=== PATIENT | male | born 1955 | race Caucasian/White ===

== ENCOUNTER 2021-01-16 14:40 | Emergency (ER) | payer OTHER, SELFPAY ==
[2021-01-16 14:46] VITALS: BP 143/76; PULSE 89; RESP 18; TEMP 36.2; O2SAT 97
--- NOTE | 2021-01-16 14:49 | DI.RAD.S_ITS ---
PROCEDURE: XR CHEST 2V INDICATIONS: cough TECHNIQUE: 2 views of the chest were acquired. COMPARISON: None. FINDINGS: Surgical changes and devices: None. Lungs and pleura: Lungs are clear. No pleural effusions or pneumothorax. Mediastinum: The cardiac contours are within normal limits. The aorta demonstrates calcification and tortuosity. Bones and chest wall: No suspicious bony abnormalities. Accentuated thoracic kyphosis is seen. Mild dextroconvex scoliotic curvature is seen. Soft tissues appear unremarkable. IMPRESSION: No acute abnormality is seen. No focal infiltrates Dictated by: Andi Suarez M.D. on 01/16/2021 at 14:09 Approved by: Andi Suarez M.D. on 01/16/2021 at 14:09
[2021-01-16 17:40] LABS: COVID19 -Nasal RAPID Negative (Negative)
[2021-01-16] MEDS: ALBUTEROL 2.5 MG/3 ML NEB (ADULT) INH (17:45)
[2021-01-16 18:06] VITALS: PULSE 72; RESP 18; O2SAT 96
[2021-01-16 18:15] VITALS: BP 145/75; PULSE 72; RESP 16; O2SAT 99
--- NOTE | 2021-01-16 18:54 | ED_ITS ---
HPI - URI/Sore Throat <TANO Núñez - Last Filed: 01/16/21 19:02> General Chief Complaint: Upper Respiratory Symptoms Stated Complaint: chest cough with sleep x14 days Time Seen by Provider: 01/16/21 16:01 Source: patient Mode of arrival: Ambulatory History of Present Illness HPI Narrative: The patient is a 65-year-old male current smoker with history of nebulizer use who presents with a chief complaint of a cough at night. He presents stating that his says he coughs during his sleep for 2 weeks. Patient denies any symptoms during waking hours, denies any cough while awake, denies any fever, denies any sore throat or ear pain. He does not have a primary care provider. He is asking for cigarettes. The patient initially left prior to my evaluation, then was redirected back to the emergency department by his . She states that he coughs throughout the day. Related Data Previous Rx's Medication Instructions Recorded albuterol sulfate 90 mcg/actuation 2 puff INHALATION Q4-6H PRN #8.5 g 01/16/21 aerosol inhaler Allergies Allergy/AdvReac Type Severity Reaction Status Date / Time Penicillins Allergy Verified 01/16/21 17:45 Review of Systems <TANO Núñez - Last Filed: 01/16/21 19:02> Review of Systems Narrative: GENERAL: Denies chills, fatigue, malaise, fever, sweats. HEENT: Denies sinus pain, ear pain, sore throat, difficulty swallowing, dizzi ness. RESPIRATORY: See HPI CARDIOVASCULAR: Denies chest pain, palpitations, orthopnea, edema, GASTROINTESTINAL: Denies nausea, vomiting, abdominal pain, diarrhea, constipation, melena. : Denies dysuria, frequency, incontinence, hematuria, urinary retention. MUSCULOSKELETAL: denies weakness, joint pain, or bony pain SKIN: Denies rash, skin lesions, or other NEUROLOGIC: Denies weakness, headache, numbness, change in speech, confusion, seizures, incoordination. PSYCHIATRIC: No concerning psychosocial issues. 12 point review of systems is negative except for those stated above Patient History <TANO Núñez - Last Filed: 01/16/21 19:02> Social History Smoking Status: Current every day smoker Smoking Status: Current every day smoker alcohol intake frequency: 0-2 drinks per day Exam <TANO Núñez - Last Filed: 01/16/21 19:02> Narrative Exam Narrative: GENERAL: This is a well-nourished, well-developed patient, in no acute distress HEAD: Atraumatic. Normocephalic. No temporal or scalp tenderness. EYES: Pupils equal round and reactive. Extraocular motions intact. No scleral icterus. No injection or drainage. ENT: Nose without bleeding, purulent drainage or septal hematoma. Throat without erythema, tonsillar hypertrophy or exudate. Uvula midline. Airway patent. Bilateral TMs pearly montes. NECK: Trachea midline. No JVD or lymphadenopathy. Supple, nontender, no meningeal signs. CARDIOVASCULAR: Regular rate and rhythm RESPIRATORY: Clear to auscultation. Breath sounds equal bilaterally. Coarse bilateral breath sounds, Occasional cough during exam GASTROINTESTINAL: Abdomen soft, non-tender, nondistended. No hepato- splenomegaly, or palpable masses. No guarding. EXTREMITIES: No clubbing, cyanosis, or edema. No joint tenderness, effusion, or edema noted. BACK: Nontender without deformity or crepitance. No flank tenderness. NEURO: AOx3. SKIN: No rash or erythema on visible skin Initial Vital Signs Initial Vital Signs: Vital Signs Temperature 97.2 F L 01/16/21 14:46 Pulse Rate 89 01/16/21 14:46 Respiratory Rate 18 01/16/21 14:46 Blood Pressure 143/76 H 01/16/21 14:46 Pulse Oximetry 97 01/16/21 14:46 <Kael Leblanc DO - Last Filed: 01/22/21 07:07> Initial Vital Signs Initial Vital Signs: Vital Signs Temperature 97.2 F L 01/16/21 14:46 Pulse Rate 89 01/16/21 14:46 Respiratory Rate 18 01/16/21 14:46 Blood Pressure 143/76 H 01/16/21 14:46 Pulse Oximetry 97 01/16/21 14:46 Course <TANO Núñez - Last Filed: 01/16/21 19:02> Orders Ordered: Discontinued Medications Albuterol (Albuterol 2.5 Mg/3 Ml Neb (Adult)) 2.5 mg INH NOW ONE Stop: 01/16/21 16:31 Last Admin: 01/16/21 17:45 Dose: 2.5 mg Documented by: IWONA Vital Signs Vital signs: Vital Signs - 8 hr 01/16/21 14:46 01/16/21 18:06 01/16/21 18:15 Temperature 97.2 F L Pulse Rate 89 72 72 Respiratory Rate 18 18 16 Blood Pressure 143/76 H 145/75 H Pulse Oximetry 97 96 99 <Kael Leblanc DO - Last Filed: 01/22/21 07:07> Orders Ordered: Discontinued Medications Albuterol (Albuterol 2.5 Mg/3 Ml Neb (Adult)) 2.5 mg INH NOW ONE Stop: 01/16/21 16:31 Last Admin: 01/16/21 17:45 Dose: 2.5 mg Documented by: IWONA Vital Signs Vital signs: Vital Signs - 8 hr 01/16/21 14:46 01/16/21 18:06 01/16/21 18:15 Temperature 97.2 F L Pulse Rate 89 72 72 Respiratory Rate 18 18 16 Blood Pressure 143/76 H 145/75 H Pulse Oximetry 97 96 99 MDM - URI/Sore Throat <TANO Núñez - Last Filed: 01/16/21 19:02> Lab Data Attestation: I reviewed the patient's lab results. Labs: Lab Results 01/16/21 Range/Units 16:20 SARS-CoV-2 (PCR) Negative (Negative) Imaging Data Chest x-ray: Radiologist's Impression: [address] [place] [id number] XRay Report Signed Patient: Ashley Shafer MR#: [id number] : 1955 Acct:[id number] Age/Sex: 65 / M Date of Service: 01/16/21 Loc: ED Accession Number: [id number] ?? Procedure: XR chest 2V Ordering Provider: Kael Leblanc D.O. PROCEDURE:? XR CHEST 2V ? INDICATIONS:? cough ? TECHNIQUE:? 2 views of the chest were acquired.? ? COMPARISON:? None. ? FINDINGS:? ? Surgical changes and devices:? None.? ? Lungs and pleura:? Lungs are clear.? No pleural effusions or pneumothorax.? ? Mediastinum:? The cardiac contours are within normal limits. The aorta demonstrates calcification and tortuosity. ? Bones and chest wall:? No suspicious bony abnormalities.? Accentuated thoracic kyphosis is seen.? Mild dextroconvex scoliotic curvature is seen. ? Soft tissues appear unremarkable.? IMPRESSION:? No acute abnormality is seen.? No focal infiltrates ? ? Dictated by: Andi Suarez M.D. on 01/16/2021 at 14:09 ? ? Approved by: Andi Suarez M.D. on 01/16/2021 at 14:09?? MDM Narrative Medical decision making narrative: The patient is a 65-year-old male current smoker presents with a chief complaint of a cough at night only for about 2 weeks. He denies any daytime symptoms. Given his profuse cough, he is vaccinated for COVID, but we did do a COVID swab to make sure he has negative. Chest x-ray is no acute findings. He does note that he has been without his albuterol nebulizer so he is given a treatment in the emergency department. I discussed at length other causes of coughing at night, such as sleep apnea etcetera, however patient states he does not have that.? I did give him a prescription of albuterol, discussed at length return precautions, the patient is noted to attempt to leave multiple times during his emergency department stay and asks multiple staff members for cigarettes. Encouraged to follow up with primary care provider in the next few days. Patient has no questions or concerns upon discharge states understanding of return precautions as well as fo llow-up care. <Kael Leblanc DO - Last Filed: 01/22/21 07:07> Lab Data Labs: Lab Results 01/16/21 Range/Units 16:20 SARS-CoV-2 (PCR) Negative (Negative) Discharge Plan Departure Patient Disposition: Home Clinical Impression: Cough Instructions: DI for Cough -- Adult, Albuterol Activity Restrictions/Additional Instructions: Thank you for trusting us with your care today. As discussed, your chest x-ray is no signs of pneumonia, your COVID test is negative. I sent a prescription of albuterol to [facility]. Please follow-up with primary care provider in the next few days. I have given you contact information the [facility] health resource room special education teacher, can help you find a primary care provider to follow-up with. Please come back to the emergency department for any acute concerns. Prescriptions: New albuterol sulfate 90 mcg/actuation HFA aerosol inhaler 2 puff inhalation Q4-6H PRN (Reason: shortness of breath or wheezing) Qty: 8.5 RF: 0 Referrals: [facility] [Outside] <Kael Leblacn, DO - Last Filed: 01/22/21 07:07> Cosign ED Attending Cosignature Attestation: Dr Leblanc Co-Sign Statement: I was available for consultation during this patient's emergency department visit. This chart is signed by myself for administrative purposes only. I did not have direct contact with this patient during this visit. They were seen independently by the APC.
== END 2021-01-16 18:15 | disposition home or self-care (01) ==
PROVIDERS: Emergency Provider Nurse Practitioner Family
DX: R05.9 Cough, unspecified (principal); Z20.822 Contact with and (suspected) exposure to COVID-19
CPT/HCPCS: 71046; 87635; 94640; 99283; C9803; A9270; J7613

== ENCOUNTER 2022-10-16 16:28 | Observation (INO) | payer OTHER, SELFPAY ==
[2022-10-16] VITALS (10 sets, daily range): BP systolic 125–164; BP diastolic 59–75; PULSE 67–83; RESP 16–26; TEMP 37; O2SAT 96–99; BMI 30.7
--- NOTE | 2022-10-16 17:05 | DI.RAD.S_ITS ---
PROCEDURE: XR CHEST 1V INDICATIONS: chest pain TECHNIQUE: One view of the chest was acquired. COMPARISON: [facility], CR, XR CHEST 2V, 01/16/2021, 14:51. FINDINGS: Surgical changes and devices: None. Lungs and pleura: Lungs are clear. No pleural effusions or pneumothorax. Mediastinum: Mediastinal contours appear normal. Heart size is normal. Bones and chest wall: No suspicious bony lesions. Overlying soft tissues appear unremarkable. IMPRESSION: No acute cardiopulmonary disease Dictated by: Portia Reno M.D. on 10/16/2022 at 17:33 Approved by: Portia Reno M.D. on 10/16/2022 at 17:34
[2022-10-16 17:36] LABS: Add Manual Diff / Slide Review NO; Basophils Absolute Auto 100 /uL (0-100); Basophils Percent Auto 0.8 % (0-2); Eosinophils Absolute Auto 200 /uL (0-450); Eosinophils Percent Auto 2.4 % (2-4); Hematocrit 45.6 % (41-53); Hemoglobin 15.5 g/dL (13.5-17.5); Lymphocytes Absolute Auto 1400 /uL (1100-4500); Lymphocytes Percent Auto 14.6 % (25-40); Mean Corpuscular Hemoglobin 31.9 PG (26-34); Monocytes Absolute Auto 800 /uL (0-900); Monocytes Percent Auto 8.3 % (3-14); Neutrophils Absolute Auto 7200 /uL (1500-7000); Neutrophils Percent Auto 73.9 % (50-75); Platelet Count 261 X10^3/uL (150-400); Red Blood Cell Count 4.85 X10^6/uL (4.5-5.9); Red Cell Distribution Width 15.5 % (11.6-14.8); White Blood Cell Count 9.7 X10^3/uL (4.5-11.0)
[2022-10-16 17:38] LABS: INR 1.1 (0.9-1.3); Prothrombin Time 12.2 SECONDS (10.1-12.7)
[2022-10-16 17:39] LABS: D Dimer 1531 ng/ml (<500)
[2022-10-16 17:40] LABS: PTT Partial Thromboplastin Tim 28 SECONDS (26-36)
[2022-10-16 17:41] LABS: Alanine Aminotransferase 18 IU/L (<50); Albumin Globulin Ratio 1.2 (1.0-2.8); Alkaline Phosphatase 131 U/L (38-126); Aspartate Aminotransferase 22 IU/L (17-59); Bilirubin Total 1.2 mg/dL (0.2-1.3); Blood Urea Nitrogen 17 mg/dL (9-20); Calcium 8.9 mg/dL (8.4-10.2); Carbon Dioxide 31 mmol/L (22-32); Chloride 101 mmol/L (98-107); Creatine Kinase 47 U/L (55-170); Estimated Glomerular Filt Rate > 60 mL/min (>60); Globulin 3.4 g/dL (1.7-4.1); Glucose 109 mg/dL (80-110); HEMOLYSIS < 15 (0-50); Lipase 43 U/L (23-300); Magnesium 2.2 mg/dL (1.6-2.3); Potassium 3.9 mmol/L (3.4-5.1); Sodium 137 mmol/L (137-145); Total Protein 7.4 g/dL (6.3-8.2)
[2022-10-16 17:53] LABS: NT-proBNP (BNP-Adult 18+) 45 pg/mL (<125); Troponin I < 0.012 ng/mL (0.01-0.034)
--- NOTE | 2022-10-16 20:08 | DI.US.S_ITS ---
PROCEDURE: US PERIPH VENOUS LOW EXTREM BI INDICATIONS: SWELLING AND POSITIVE D-DIMER TECHNIQUE: Real-time imaging, as well as color and pulse Doppler interrogation, were performed of the deep veins of both legs from the inguinal ligament to the popliteal fossa. COMPARISON: None. FINDINGS: Right: The common femoral, femoral and popliteal veins are normally compressible, and free of intraluminal thrombus. Color and pulse Doppler demonstrate normal phasic intravascular flow. There is normal augmentation response to distal compression maneuver. Left: The common femoral vein is patent. Nonocclusive thrombus is noted within the midportion of the left superficial femoral vein. The distal left superficial vein appears compressible and patent. IMPRESSION: 1. Nonocclusive thrombus within the midportion of the left superficial vein. Dictated by: Mel Diana M.D. on 10/16/2022 at 21:52 Approved by: Mel Diana M.D. on 10/16/2022 at 21:54
--- NOTE | 2022-10-16 21:23 | DI.CT.S_ITS ---
PROCEDURE: CT ANGIO CHEST PE PROTOCOL INDICATIONS: soa TECHNIQUE: After the administration of intravenous contrast, 2 mm thick sections acquired from the pulmonary apices to the posterior costophrenic angles. 3-dimensional maximum intensity projection (MIP) coronal and sagittal reformats were then acquired through the thorax. For radiation dose reduction, the following was used: automated exposure control, adjustment of mA and/or kV according to patient size. COMPARISON: None. FINDINGS: Image quality: Excellent. Pulmonary arteries: There is a nonocclusive subsegmental embolus within a branch of the left upper lobe (series 4/image 53). No other pulmonary embolus. Lungs and pleura: There is a spiculated nodule within the right upper lobe which measures a mm in diameter (series 5/image 54). The lungs are otherwise clear. No pleural effusion or pneumothorax. Mediastinum: Heart size is normal, without pericardial effusion. No mediastinal or hilar adenopathy. Thoracic aorta is normal in caliber and enhancement. Esophagus is normal in caliber, without hiatal hernia. Bones and chest wall: No suspicious bony lesions. Ribs and thoracic spine appear intact throughout. Thyroid gland is unremarkable. No axillary or supraclavicular adenopathy. Abdomen: Visualized upper abdominal solid organs appear normal in the early arterial phase of enhancement. IMPRESSION: 1. Nonocclusive thrombus within a subsegmental branch of the left upper lobe. This finding was discussed with Dr. Cramer at 10:23 p.m. On October 16, 2022 2. Right upper lobe 8 mm pulmonary nodule with spiculated margins. 3 month follow-up CT recommended. Please see follow-up guidelines below. Fleischner Society criteria for SOLID lung nodule followup. Nodule size (mm)Low-risk patientHigh-risk patient<6 (single or multiple)No routine followup.Optional CT at 12 months. 6-8 (single or multiple)CT at 6-12 months, then optional CT at 18-24 mo.CT at 6-12 months, then CT at 18-24 months. >8 (single)CT at 3 months, PET-CT, or biopsy. Same as for low-risk pts. >8 (multiple)CT at 3-6 months, then optional CT at 18-24 mo.CT at 3-6 months, then CT at 18-24 months. Fleischner Society criteria for SUB-SOLID lung nodule followup. Solitary pure ground-glass nodules<6 mm (ground glass or part solid)No followup needed. 6 mm or larger (ground glass)CT at 6-12 months to confirm persistence, then CT every 2 years until 5 years.6 mm or larger (part solid)CT at 3-6 months to confirm persistence, then annual CT until 5 years if unchanged and solid component remains <6 mm. Multiple sub-solid nodules<6 mmCT at 3-6 months, then CT consider at 2 & 4 years for high risk patients. [address] at 3-6 months. Subsequent management based on most suspicious lesions. Recommendations do not apply to lung cancer screening, patients with immunosuppression, or patients with known primary cancer. Dictated by: Mel Diana M.D. on 10/16/2022 at 22:18 Approved by: Mel Diana M.D. on 10/16/2022 at 22:25
--- NOTE | 2022-10-16 21:42 | ED_ITS ---
HPI - Extremity Problem General Chief complaint: Extremity Problem,Nontraumatic Stated complaint: bilateral foot and ankle swelling Time Seen by Provider: 10/16/22 21:10 Source: patient Mode of arrival: Ambulatory History of Present Illness HPI Narrative: Patient brought here by for complaints of bilateral leg swelling. No chest pain or shortness of breath. 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 He does have mobility issues with joint and orthopedic pain, he has been sleeping in the truck in a seated position with feet down. There is extensive leg and feet swelling in the past few days. They state he has normal looking feet prior to their departure October 06. Patient has had edema of the legs before and was given diuretics according to . No history of blood clots in legs or lungs. Related Data Previous Rx's Medication Instructions Recorded albuterol sulfate 90 mcg/actuation 2 puff inhalation Q4-6H PRN 01/16/21 aerosol inhaler shortness of breath or wheezing #8.5 grams Allergies Allergy/AdvReac Type Severity Reaction Status Date / Time Penicillins Allergy Verified 10/16/22 17:01 Review of Systems Review of Systems Narrative: GENERAL: negative chills, fatigue, malaise, fever, sweats. HEENT: negative sinus pain, ear pain, sore throat RESPIRATORY: negative dyspnea, cough CARDIOVASCULAR: negative chest pain, palpitations, positive peripheral edema GASTROINTESTINAL: negative nausea, vomiting, abdominal pain : negative dysuria, frequency, hematuria MUSCULOSKELETAL: negative muscle or bony pain SKIN: negative rash, skin lesions NEUROLOGIC: negative weakness, numbness ROS Unobtainable: All systems reviewed & are unremarkable except as noted in HPI and below Patient History Social History household members: spouse Smoking Status: Current every day smoker Smoking Status: Current every day smoker alcohol intake frequency: 3 or more drinks per day Alcohol type: beer Substance Use Type: marijuana Exam Narrative Exam Narrative: GENERAL: in no distress, not toxic not dyspneic HEAD: Normocephalic. EYES: Pupils equal round ENT: Mucous membranes moist. NECK: Trachea midline. CARDIOVASCULAR: Regular rate and rhythm without murmurs RESPIRATORY: Clear to auscultation. Breath sounds equal bilaterally. No wheezes, rales, or rhonchi. GASTROINTESTINAL: Abdomen soft, non-tender EXTREMITIES: No gross deformities. There is extensive severe edema symmetrically of lower legs ankle and feet. However feet are warm soft and pink. Brisk cap refills. Light touch intact to foot and toes. Nontender calves otherwise. No palpable cords. NEURO: AOx4. SKIN: Warm and dry PSYCH: Not anxious, is cooperative Initial Vital Signs Initial Vital Signs: Vital Signs Temperature 98.6 F 10/16/22 16:58 Pulse Rate 74 10/16/22 16:58 Respiratory Rate 16 10/16/22 16:58 Blood Pressure 164/75 H 10/16/22 16:58 Pulse Oximetry 98 10/16/22 16:58 Oxygen Delivery Method Room Air 10/16/22 16:58 Course Orders Ordered: ED Orders 10/16/22 20:08 periph venous low extrem bi Stat 10/16/22 21:23 CT angio chest PE protocol Stat Acetaminophen (Acetaminophen 325 Mg Tablet) 650 mg PO Q6H PRN PRN Reason: Fever/Mild Pain (1-3) Hydrocodone Bitart/Acetaminophen (Hydrocodone/Acet 5/325 Tablet) 1 tab PO Q4H PRN PRN Reason: Pain, Moderate (4-10 Al Hydrox/Mg Hydrox/Simethicone (Mag Hydrox/Alum/Simeth 30 Ml Udc) 30 ml PO Q6HR PRN PRN Reason: Dyspepsia Albuterol/Ipratropium (Albuterol/Ipratropium 3 Ml Ampul) 3 ml INH Q4HR PRN PRN Reason: Shortness Of Breath Or Wheezing Calcium Carbonate (Calcium Carbonate 500 Mg Tab) 1,000 mg PO Q4HR PRN PRN Reason: Dyspepsia Enoxaparin Sodium (Enoxaparin 100 Mg/Ml Syringe) 100 mg SUBCUT Q12H HASEEB Last Admin: 10/17/22 00:00 Dose: 100 mg Documented By: Naloxone HCl (Naloxone 0.4 Mg/Ml Vial) 0.2 mg IV Q2MIN PRN PRN Reason: Opiate Reversal Ondansetron HCl (Ondansetron 4 Mg/2 Ml Inj) 4 mg IV Q8HR PRN PRN Reason: Nausea And Vomiting Sennosides (Sennosides 8.6 Mg Tablet) 17.2 mg PO BEDTIME HASEEB Discontinued Medications Enoxaparin Sodium (Enoxaparin 40 Mg/0.4 Ml Syringe) 97 mg SUBCUT BID HASEEB Furosemide 60 mg/ Sodium (Chloride) 56 mls @ 112 mls/hr IV NOW ONE Stop: 10/16/22 21:17 Last Infusion: 10/16/22 22:23 Dose: 0 mls/hr Documented By: Admin: 10/16/22 21:48 Dose: 112 mls/hr Documented By: NAHUM Vital Signs Vital signs: Vital Signs - 8 hr 10/16/22 20:36 10/16/22 20:38 10/16/22 20:38 Pulse Rate 83 71 Respiratory Rate Blood Pressure 154/71 H Pulse Oximetry 99 99 Oxygen Delivery Method Room Air 10/16/22 21:00 10/16/22 21:30 10/16/22 21:54 Pulse Rate 70 68 73 Respiratory Rate 26 H 24 Blood Pressure Pulse Oximetry 99 98 98 Oxygen Delivery Method Room Air 10/16/22 21:54 10/16/22 22:00 10/16/22 22:00 Pulse Rate 67 Respiratory Rate 20 Blood Pressure 139/63 125/59 L Pulse Oximetry 98 Oxygen Delivery Method 10/16/22 22:30 10/16/22 22:30 10/16/22 23:00 Pulse Rate 74 Respiratory Rate 24 Blood Pressure 143/67 H 136/65 Pulse Oximetry 98 Oxygen Delivery Method Room Air 10/16/22 23:00 10/16/22 23:30 10/16/22 23:30 Pulse Rate 68 68 Respiratory Rate 22 21 Blood Pressure 136/67 Pulse Oximetry 96 96 Oxygen Delivery Method Room Air MDM - Extremity (Nontraumatic) Lab Data 10/16/22 17:15 10/16/22 17:15 Labs: Lab Results 10/16/22 10/16/22 10/16/22 Range/Units 17:15 17:15 17:15 WBC 9.7 (4.5-11.0) X10^3/uL RBC 4.85 (4.5-5.9) X10^6/uL Hgb 15.5 (13.5-17.5) g/dL Hct 45.6 (41-53) % MCV 94.0 (80-100) fL MCH 31.9 (26-34) PG MCHC 34.0 (30-36) % RDW 15.5 H (11.6-14.8) % Plt Count 261 (150-400) X10^3/uL Neut % (Auto) 73.9 (50-75) % Lymph % (Auto) 14.6 L (25-40) % Stanton % (Auto) 8.3 (3-14) % Eos % (Auto) 2.4 (2-4) % Baso % (Auto) 0.8 (0-2) % Neut # (Auto) 7200 H (5748-1512) /uL Lymph # (Auto) 1400 (4166-1922) /uL Stanton # (Auto) 800 (0-900) /uL Eos # (Auto) 200 (0-450) /uL Baso # (Auto) 100 (0-100) /uL PT 12.2 (10.1-12.7) SECONDS INR 1.1 (0.9-1.3) APTT 28 (26-36) SECONDS D-Dimer 1531 H (<500) ng/ml Sodium 137 (137-145) mmol/L Potassium 3.9 (3.4-5.1) mmol/L Chloride 101 (98-107) mmol/L Carbon Dioxide 31 (22-32) mmol/L BUN 17 (9-20) mg/dL Creatinine 1.00 (0.66-1.25) mg/dL Estimated GFR > 60 (>60) mL/min BUN/Creatinine Ratio 17.0 (6-22) Glucose 109 (80-110) mg/dL Calcium 8.9 (8.4-10.2) mg/dL Magnesium 2.2 (1.6-2.3) mg/dL Total Bilirubin 1.2 (0.2-1.3) mg/dL AST 22 (17-59) IU/L ALT 18 (<50) IU/L Alkaline Phosphatase 131 H (38-126) U/L Total Creatine Kinase 47 L (55-170) U/L Troponin I < 0.012 (0.01-0.034) ng/mL NT-Pro-B Natriuret Pep 45 (<125) pg/mL Total Protein 7.4 (6.3-8.2) g/dL Albumin 4.0 (3.5-5.0) g/dL Globulin 3.4 (1.7-4.1) g/dL Albumin/Globulin Ratio 1.2 (1.0-2.8) Lipase 43 (23-300) U/L Imaging Data Chest x-ray: Radiologist's Impression: [address] [address] XRay Report Signed Patient: Ashley Shafer MR#: [id number] : 1955 Acct:[id number] Age/Sex: 67 / M Date of Service: 10/16/22 Loc: ED Accession Number: [id number] ?? Procedure: XR chest 1V Ordering Provider: Garett Gamboa MD PROCEDURE:? XR CHEST 1V ? INDICATIONS:? chest pain ? TECHNIQUE:? One view of the chest was acquired.? ? COMPARISON:? [facility], , XR CHEST 2V, 01/16/2021, 14:51. ? FINDINGS:? ? Surgical changes and devices:? None.? ? Lungs and pleura:? Lungs are clear.? No pleural effusions or pneumothorax.? ? Mediastinum:? Mediastinal contours appear normal.? Heart size is normal.? ? Bones and chest wall:? No suspicious bony lesions.? Overlying soft tissues appear unremarkable.? ? IMPRESSION:? No acute cardiopulmonary disease ? ? Dictated by: Portia Reno M.D. on 10/16/2022 at 17:33 ? ? Approved by: Portia Reno M.D. on 10/16/2022 at 17:34 ? CT scan - chest: Radiologist's Impression: [address] [address] [address] Scan Report Signed Patient: Ashley Shafer MR#: [id number] : 1955 Acct:[id number] Age/Sex: 67 / M Date of Service: 10/16/22 Loc: ED Accession Number: [id number] ?? Procedure: CT angio chest PE protocol Ordering Provider: Roman Cramer MD PROCEDURE:? CT ANGIO CHEST PE PROTOCOL ? INDICATIONS:? soa ? TECHNIQUE:? After the administration of intravenous contrast, 2 mm thick sections acquired from the pulmonary apices to the posterior costophrenic angles.? 3-dimensional maximum intensity projection (MIP) coronal and sagittal reformats were then acquired through the thorax.? For radiation dose reduction, the following was used:? automated exposure control, adjustment of mA and/or kV according to patient size.? ? COMPARISON:? None. ? FINDINGS:? Image quality:? Excellent.? ? Pulmonary arteries:? There is a nonocclusive subsegmental embolus within a branch of the left upper lobe (series 4/image 53).? No other pulmonary embolus. ? Lungs and pleura:? There is a spiculated nodule within the right upper lobe which measures a mm in diameter (series 5/image 54).? The lungs are otherwise clear.? No pleural effusion or pneumothorax. ? Mediastinum:? Heart size is normal, without pericardial effusion.? No mediastinal or hilar adenopathy.? Thoracic aorta is normal in caliber and enhancement.? Esophagus is normal in caliber, without hiatal hernia.? ? Bones and chest wall:? No suspicious bony lesions.? Ribs and thoracic spine appear intact throughout.? Thyroid gland is unremarkable.? No axillary or supraclavicular adenopathy.? ? Abdomen:? Visualized upper abdominal solid organs appear normal in the early arterial phase of enhancement.? ? IMPRESSION:? 1.? Nonocclusive thrombus within a subsegmental branch of the left upper lobe. ? This finding was discussed with Dr. Cramer at 10:23 p.m. On October 16, 2022 ? 2. Right upper lobe 8 mm pulmonary nodule with spiculated margins.? 3 month follow-up CT recommended.? Please see follow-up guidelines below. ? Fleischner Society criteria for SOLID lung nodule followup.? Nodule size (mm)Low-risk patientHigh-risk patient<6 (single or multiple)No routine followup.Optional CT at 12 months. 6-8 (single or multiple)CT at 6-12 months, then optional CT at 18-24 mo.CT at 6-12 months, then CT at 18-24 months.? >8 (sin gle)CT at 3 months, PET-CT, or biopsy. Same as for low-risk pts.? >8 (multiple)CT at 3-6 months, then optional CT at 18-24 mo.CT at 3-6 months, then CT at 18-24 months.? Fleischner Society criteria for SUB-SOLID lung nodule followup.? Solitary pure ground-glass nodules<6 mm (ground glass or part solid)No followup needed.? 6 mm or larger (ground glass)CT at 6-12 months to confirm persistence, then CT every 2 years until 5 years.6 mm or larger (part solid)CT at 3-6 months to confirm persistence, then annual CT until 5 years if unchanged and solid component remains <6 mm.? Multiple sub-solid nodules<6 mmCT at 3-6 months, then CT consider at 2 & 4 years for high risk patients. 6 [address] or larger.? CT at 3-6 months. Subsequent management based on most suspicious lesions. Recommendations do not apply to lung cancer screening, patients with immunosuppression, or patients with known primary cancer. ? Dictated by: Mel Diana M.D. on 10/16/2022 at 22:18 ? ? Approved by: Mel Diana M.D. on 10/16/2022 at 22:25 ? US - DVT: Radiologist's Impression: [address] [address] Ultrasound Report Signed Patient: Ashley Shafer MR#: [id number] : 1955 Acct:[id number] Age/Sex: 67 / M Date of Service: 10/16/22 Loc: ED Accession Number: [id number] ?? Procedure: US periph venous low extrem bi Ordering Provider: Roman Cramer MD PROCEDURE:? US PERIPH VENOUS LOW EXTREM BI ? INDICATIONS:? SWELLING AND POSITIVE D-DIMER ? TECHNIQUE:? Real-time imaging, as well as color and pulse Doppler interrogation, were performed of the deep veins of both legs from the inguinal ligament to the popliteal fossa.? ? COMPARISON:? None. ? FINDINGS:? ? Right: The common femoral, femoral and popliteal veins are normally compressible, and free of intraluminal thrombus.? Color and pulse Doppler demonstrate normal phasic intravascular flow.? There is normal augmentation response to distal compression maneuver.? ? Left:? The common femoral vein is patent.? Nonocclusive thrombus is noted within the midportion of the left superficial femoral vein.? The distal left superficial vein appears compressible and patent. ? ? IMPRESSION:? ? 1. Nonocclusive thrombus within the midportion of the left superficial vein. ? ? Dictated by: Mel Diana M.D. on 10/16/2022 at 21:52 ? ? Approved by: Mel Diana M.D. on 10/16/2022 at 21:54 ? [facility] Narrative Medical decision making narrative: Patient brought here by for complaints of bilateral leg swelling. No chest pain or shortness of breath. 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 He does have mobility issues with joint and orthopedic pain, he has been sleeping in the truck in a seated position with feet down. There is extensive leg and feet swelling in the past few days. They state he has normal looking feet prior to their departure October 06. Patient has had edema of the legs before and was given diuretics according to . No history of blood clots in legs or lungs After history and exam CBC CMP BNP ultrasound of the legs CT chest Lasix anticoagulation MDM CC: Leg swelling Complicating co-morbidities: Recent long travel Data collected from: Patient Medical records reviewed: No recent visit for this complaint Differential considered: Includes but not limited to dependent edema SVT DVT PE cellulitis Exam documented above, pertinent findings include: Extensive bilateral leg and feet edema Lab Test results independently reviewed as above. Pertinent findings: WBC 9.7 hemoglobin 15.5 INR 1.1 D-dimer 1531 BUN 17 creatinine 1.0 Independently reviewed EKG normal sinus rhythm normal EKG rate 68 Imaging studies independently reviewed: Chest x-ray no acute finding Ultrasound venous Doppler positive DVT left leg CT chest positive subsegmental PE left upper lobe Consultations: 11:49 p.m.. Spoke with hospitalist nurse practitioner, Rose, recommends Lovenox 1 milligram/kilogram twice a day. She will see patient for admission. Treatments: Lasix Lovenox Re-evaluations: 10:35 p.m.. Updated patient and . Findings are consistent with DVT and PE. Will need admission and diuresis and anticoagulation. They agree with treatment plan. Discussion: Appropriate for admission for anticoagulation and diuresis. Diagnosis: DVT PE Discharge Plan Departure Patient Disposition: Admitted as Observation Clinical Impression: Deep vein thrombosis of lower extremity, Lower extremity edema, Pulmonary embolism Admit Date/Time: 10/16/22 23:52 Admit Provider: Rose Romero
[2022-10-16] MEDS: FUROSEMIDE 60 MG in SODIUM CHLORIDE 0.9% 50 ML 112 MG IV (21:48)
--- NOTE | 2022-10-17 00:04 | DI.ECHO.S_ITS ---
[facility] +---------+ : : [address] [place] : : : : [id number] : : : : Phone: [phone]+ Echocardiogram Report + + :Name: MAJO SAWYER Study Date: 10/17/2022 Height: 58 in : :[facility] ReadingLocation: Weight: 214 lb : : Gender: Male BSA: 1.9 m2 : :: 1955 Age: 67 yrs BP: 141/67 mmHg: :Reason For Study: PE/DVT : :Ordering Physician: ANUPAMA, : :HALINA Performed By: Petrona Tran : :Referring: HALINA ALTMAN : + + Interpretation Summary 1) Mildly increased left ventricular thickness (concentric) with normal size, normal wall motion, and normal systolic function (EF 60-65%). 2) Normal right ventricular size and function. 3) No significant valvular abnormalities. 4) Pulmonary artery pressures cannot be estimated because of the lack of a measurable TR jet velocity. 5) No prior Echo available for comparison. Procedure: A two-dimensional transthoracic echocardiogram with color flow and Doppler was performed. The study quality was technically difficult. There is no prior echocardiogram noted for this patient. A contrast injection of Definity was performed to improve assessment of LV function. The patient was in normal sinus rhythm during the exam. Left Ventricle: The left ventricle is normal in size. There is mild concentric left ventricular hypertrophy. The ejection fraction is estimated to be 60-65%. Left ventricular systolic function is normal. Diastolic parameters suggest a relaxation abnormality of the left ventricle, consistent with probable normal filling pressures. Right Ventricle: The right ventricle is normal size. The right ventricular systolic function is normal. Atria: The left atrial size is normal. Right atrial size is normal. There is no Doppler evidence for an interatrial shunt. Mitral Valve: The mitral valve is not well visualized. There is no mitral valve stenosis. There is no mitral regurgitation noted. Aortic Valve: The aortic valve is not well visualized. There is no aortic valve stenosis. No aortic regurgitation is present. Tricuspid Valve: The tricuspid valve is not well visualized. There is no tricuspid stenosis. No tricuspid regurgitation. Pulmonary artery pressures cannot be estimated because of the lack of a measurable TR jet velocity. Pulmonic Valve: The pulmonic valve is not well visualized. There is no pulmonic valvular stenosis. There is no pulmonic valvular regurgitation. Great Vessels: The aortic root is normal size. The ascending aorta is normal in size. The pulmonary is not well visualized. The IVC is of normal diameter and collapses greater than 50% with a sniff. This suggests a low right atrial pressure of 3 mm Hg. Pericardium/ Pleura There is a trivial to small pericardial effusion noted. MMode/2D Measurements & Calculations LVIDd: 4.5 cm LVOT diam: 1.9 cm LVIDs: 3.7 cm Ao root diam: 2.9 cm FS: 17.8 % asc Aorta Diam: 3.3 cm IVSd: 1.4 cm LVPWd: 1.2 cm LV cheung. diameter/BSA (cm/m^2): 2.4 LV sys. diameter/BSA (cm/m^2): 2.0 LA A2 area: 15.8 cm2 RA long axis: 4.5 cm LA A4 area: 14.6 cm2 RA area: 12.7 cm2 LA length (vol): 5.4 cm RA vol: 30.3 ml LA vol: 36.1 ml RA : 16.2 ml/m2 LA vol index: 19.3 ml/m2 RVD1 (basal): 4.1 cm TAPSE_phl: 2.1 cm Doppler Measurements & Calculations Ao V2 max: 141.0 cm/sec LVOT Max Vern: 99.9 cm/sec Ao V2 mean: 86.1 cm/sec LV V1 max P.0 mmHg Ao max P.0 mmHg LV V1 VTI: 20.5 cm Ao mean P.0 mmHg KATERINA(I,D): 2.0 cm2 Ao V2 VTI: 28.9 cm KATERINA(V,D): 2.0 cm2 sev ratio: 0.71 KATERINA indexed to BSA (cm^2/m^2): 1.1 MV E max vern: 91.7 cm/sec PA V2 max: 85.1 cm/sec MV A max vern: 89.1 cm/sec PA V2 mean: 59.2 cm/sec MV E/A: 1.0 PA mean P.0 mmHg Med Peak E' Vern: 6.2 cm/sec PA pr(Accel): 34.9 mmHg E/E' med: 14.8 Lat Peak E' Vern: 8.0 cm/sec E/E' lat: 11.4 E/e' average: 13.1 MV dec time: 0.29 sec SV(LVOT): 58.1 ml AV VR_phl: 0.71 KATERINA(VTI)/BSA_phl: 1.1 MV P1/2t-pr_phl: 84.0 msec Reading Physician:05:11 PM
--- NOTE | 2022-10-17 00:11 | PM.HP.1 ---
History of Present Illness History of Present Illness Date Patient Seen: 10/17/22 Time Patient Seen: 00:11 Chief complaint: bilateral foot and ankle swelling Narrative: Ashley Shafer is a 67 yr old male with a medical history for only chronic tobacco abuse who presented to the ED with severe bilateral lower extremity swelling after driving from [place] to [place] and sleeping (sleeping in the truck in a seated position with feet down) in their [employer] over the past 10 days. He notes that his lower extremities have been weeping increased redness. Has had bilateral edema in the past on 1 occasion was treated with diuretics. Patient denies any prior cardiac, pulmonary, blood clots history. Denies chest pain or shortness of breath.? He does have mobility issues with joint and orthopedic pain. They state he has normal looking feet prior to their departure October 06. On admit patient denies chest pain, shortness in breath, headache, changes in vision, difficulty swallowing, speech impairment, weakness, numbness, tingling, recent falls, head injury, LOC, fever, body aches, chills, cough, recent exposure to illness, abdominal pain, nausea, vomiting, urinary incontinence/retention, dysuria, frequency, urgency, hematuria, bowel changes, constipation, incontinence, melena, rashes, recent changes to medication, illness, injury, or trauma. On admit vitals are stable 141/67, 83, 18, 97% on room air. Patient does smoke daily, alcohol use, THC. No WBC, positive neutrophils 7200. Troponin negative, BNP negative, chest x-ray negative, D-dimer 1531, CTA showed nonocclusive thrombus within a segmental branch of the left upper lobe, and right lobe 8 mm pulmonary nodule with spiculated margins. Bilateral lower extremity ultrasound showed nonocclusive thrombus within the middle portion of the left superficial vein. Patient admitted with left upper lobe pulmonary embolus, left lower extremity DVT. [facility] Medical History Tobacco abuse Surgical History History of bilateral hip replacements Family History Mother Cancer Father Heart attack Social History (Updated 10/17/22 @ 05:10 [facility] household members: spouse Smoking Status: Current every day smoker alcohol intake: current substance use type: marijuana Meds Home Medications and Allergies Home Medications Medication Instructions Recorded Confirmed Type albuterol sulfate 90 mcg/actuation 2 puff inhalation Q4-6H PRN 01/16/21 10/17/22 Rx aerosol inhaler shortness of breath or wheezing #8.5 grams Allergies Allergy/AdvReac Type Severity Reaction Status Date / Time Penicillins Allergy Verified 10/16/22 17:01 Review of Systems Review of Systems Narrative: All 12 point systems reviewed with the patient and are negative except otherwise documented. Exam Vital Signs (past 8 hours): - 10/16/22 16:58 10/16/22 20:36 10/16/22 20:38 Temperature 98.6 F Pulse Rate 74 83 71 Respiratory Rate 16 Blood Pressure 164/75 H Pulse Oximetry 98 99 99 Oxygen Delivery Method Room Air Room Air 10/16/22 20:38 10/16/22 21:00 10/16/22 21:30 Temperature Pulse Rate 70 68 Respiratory Rate 26 H Blood Pressure 154/71 H Pulse Oximetry 99 98 Oxygen Delivery Method 10/16/22 21:54 10/16/22 21:54 10/16/22 22:00 Temperature Pulse Rate 73 Respiratory Rate 24 Blood Pressure 139/63 125/59 L Pulse Oximetry 98 Oxygen Delivery Method Room Air 10/16/22 22:00 10/16/22 22:30 10/16/22 22:30 Temperature Pulse Rate 67 74 Respiratory Rate 20 24 Blood Pressure 143/67 H Pulse Oximetry 98 98 Oxygen Delivery Method Room Air 10/16/22 23:00 10/16/22 23:00 10/16/22 23:30 Temperature Pulse Rate 68 Respiratory Rate 22 Blood Pressure 136/65 136/67 Pulse Oximetry 96 Oxygen Delivery Method Room Air 10/16/22 23:30 Temperature Pulse Rate 68 Respiratory Rate 21 Blood Pressure Pulse Oximetry 96 Oxygen Delivery Method Oxygen Delivery Method Room Air Narrative Exam Narrative: General: Patient is a male in no distress at this time. HEENT: Normocephalic, atraumatic, extraocular muscles intact, oral pharynx is clear and mucous membranes are moist. Neck is supple and symmetric, trachea is midline, no adenopathy, no thyroid enlargement, nontender, no masses palpated. Negative for JVD Chest: Normal AP diameter and contour without kyphoscoliosis, Equal chest rise without nasal flaring, retractions, tachypneic or labored breathing. Lungs: Auscultation of all lung dsouza significantly coarse, decreased, profuse wheezing throughout Cardio: regular rate and rhythm without murmur, rubs, or gallops, no carotid bruit, no cardiac pulsations present. Abdomen: Soft nontender, negative for organomegaly, or masses. Bowel sounds are present in all 4 quadrants without guarding or rebound, no CVA tenderness. Musculoskeletal: Muscle strength and tone are equal, no deformity, crepitus, effusions, cyanosis, clubbing present. Full range of motion intact radial and pedal pulses are normal. Bilateral lower extremities: Significant bilateral nonpitting edema left calf larger than right noted mild weeping, erythema, skin breakdown noted to posterior left calf, bilateral fungal infections and breakdown between toes. Skin: Warm dry and intact without rashes, ulcerations or petechiae. Neuro: Alert and orientated x3, moves all extremities, sensation to touch intact, no gross deficits noted of cranial nerves. Psych: Patient has a poorly kept appearance, appears chronically ill, appropriate affect, mental status attitude thought context and judgment are appropriate for age. Objective Labs 10/16/22 17:15 10/16/22 17:15 Labs: Laboratory Results - last 24 hr 10/16/22 10/16/22 10/16/22 17:15 17:15 17:15 WBC 9.7 RBC 4.85 Hgb 15.5 Hct 45.6 MCV 94.0 MCH 31.9 MCHC 34.0 RDW 15.5 H Plt Count 261 Neut % (Auto) 73.9 Lymph % (Auto) 14.6 L Schleicher % (Auto) 8.3 Eos % (Auto) 2.4 Baso % (Auto) 0.8 Neut # (Auto) 7200 H Lymph # (Auto) 1400 Schleicher # (Auto) 800 Eos # (Auto) 200 Baso # (Auto) 100 PT 12.2 INR 1.1 APTT 28 D-Dimer 1531 H Sodium 137 Potassium 3.9 Chloride 101 Carbon Dioxide 31 BUN 17 Creatinine 1.00 Estimated GFR > 60 BUN/Creatinine Ratio 17.0 Glucose 109 Calcium 8.9 Magnesium 2.2 Total Bilirubin 1.2 AST 22 ALT 18 Alkaline Phosphatase 131 H Total Creatine Kinase 47 L Troponin I < 0.012 NT-Pro-B Natriuret Pep 45 Total Protein 7.4 Albumin 4.0 Globulin 3.4 Albumin/Globulin Ratio 1.2 Lipase 43 Assessment & Plan Assessment & Plan narrative: Ashley Shafer is a 67 yr old male with a medical history for only chronic tobacco abuse who presented to the ED with severe bilateral lower extremity swelling after driving from [place] to [place] and sleeping (sleeping in the truck in a seated position with feet down) in their [employer] over the past 10 days. Patient admitted with left upper lobe pulmonary embolus, left lower extremity DVT. 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 Lovenox as above Elevation Bilateral lower extremity peripheral edema, severe, acute, present on admission Left greater than right 60 mg Lasix given in ED Continue 20 mg Lasix IV b.i.d. Pulmonary nodule, acute, present on admission CTA showed nonocclusive thrombus within a segmental branch of the left upper lobe, and right lobe 8 mm pulmonary nodule with spiculated margins Recommend follow-up and monitoring with PCP Tobacco abuse, chronic, present on admission Discussed tobacco cessation as it is a causative factor in PE and DVT. Obesity, mild, acute on chronic, present on admission As evidence by BMI 30.7 dietary consult ordered regarding nutritional education and information for dietary, lifestyle, exercise, and weight changes. the patient is at much higher risk for medical and surgical complications due to obesity as it relates to chronic illnesses:, and acute illness. The patient's obesity increases the difficulty and complexity of medical and/or surgical interventions, management and increases the chances of poor outcome such as morbidity and mortality as well as impaired wound healing. Code status: Full Surrogate decision maker: Spouse DVT/VTE prophylaxis: Lovenox Disposition: Patient admitted under observation, expected length of stay not to exceed 2 midnights. I have utilized all available immediate resources to obtain, update, or review the patient's current medications. I confirmed that the patient's advanced care plan is present, Code status is documented and/or surrogate decision maker is listed in the patient's medical record. I have personally reviewed patient's chart notes from PCP, specialists, diagnostic imaging, and laboratory results.
[2022-10-17 00:30] VITALS: BP 141/67; PULSE 83; RESP 18; TEMP 36.4; O2SAT 97
[2022-10-17 01:08] VITALS: BMI 30.7
--- NOTE | 2022-10-17 06:03 | PC.ADMIT ---
[address] Admission Note: The patient,Ashley Shafer,67 y/o, was given written information regarding hospital policies, unit procedures and contact persons. Patient's smoking status: Current every day smoker. Vital Signs - 8 hr 10/16/22 22:30 10/16/22 22:30 10/16/22 23:00 Temperature Pulse Rate 74 Respiratory Rate 24 Blood Pressure 143/67 H 136/65 Pulse Oximetry 98 Oxygen Delivery Method Room Air Oxygen Flow Rate 10/16/22 23:00 10/16/22 23:30 10/16/22 23:30 Temperature Pulse Rate 68 68 Respiratory Rate 22 21 Blood Pressure 136/67 Pulse Oximetry 96 96 Oxygen Delivery Method Room Air Oxygen Flow Rate 10/17/22 00:30 Temperature 97.6 F Pulse Rate 83 Respiratory Rate 18 Blood Pressure 141/67 H Pulse Oximetry 97 Oxygen Delivery Method Oxygen Flow Rate 0
[2022-10-17 06:08] LABS: Add Manual Diff / Slide Review NO; Basophils Absolute Auto 100 /uL (0-100); Basophils Percent Auto 1.1 % (0-2); Eosinophils Absolute Auto 200 /uL (0-450); Eosinophils Percent Auto 2.5 % (2-4); Hematocrit 42.1 % (41-53); Hemoglobin 14.6 g/dL (13.5-17.5); Lymphocytes Absolute Auto 1400 /uL (1100-4500); Lymphocytes Percent Auto 18.3 % (25-40); Mean Corpuscular HGB Conc 34.8 % (30-36); Mean Corpuscular Hemoglobin 32.2 PG (26-34); Mean Corpuscular Volume 92.5 fL (80-100); Monocytes Absolute Auto 700 /uL (0-900); Monocytes Percent Auto 9.2 % (3-14); Neutrophils Absolute Auto 5400 /uL (1500-7000); Neutrophils Percent Auto 68.9 % (50-75); Platelet Count 230 X10^3/uL (150-400); Red Blood Cell Count 4.55 X10^6/uL (4.5-5.9); Red Cell Distribution Width 15.3 % (11.6-14.8); White Blood Cell Count 7.9 X10^3/uL (4.5-11.0)
[2022-10-17 06:11] LABS: INR 1.2 (0.9-1.3); Prothrombin Time 13.8 SECONDS (10.1-12.7)
[2022-10-17 06:16] LABS: Cholesterol 114 mg/dL (140-199); HDL Cholesterol 31 mg/dL (40-60); LDL Cholesterol Calculated 64 mg/dL (<100); Triglycerides 95 mg/dL (35-150)
[2022-10-17 06:28] LABS: Troponin I < 0.012 ng/mL (0.01-0.034)
--- NOTE | 2022-10-17 08:31 | CM.DANOTE ---
Addendum entered by Suzanne Rincon R.N. 10/17/22 15:39: CM returned to room to discuss DCP for today. Patient remains awaiting TTE. not at bedside, patient sleeping. Bedside RN Roseann aware of DCP to local [facility] with support of [facility] for voucher if/when contacts them. Addendum entered by Suzanne Rincon R.N. 10/17/22 13:49: Met with patient and his at bedside again at 1238 and offered phone number for [facility]. Call to Sandra Garza at [facility] as a heads up that they would likely show up today after hospital discharge. CM team recieved message that patient/ would like additional resources as they have no muñoz, no where to live and their hotel room at the [facility] has been rented. Original Note: Chart reviewed. Met with patient to introduce case management team and initiate assessment. Patient agrees to assessment. Patient is a 67 year old who confirms that he just drove across the from [place] to [place] with with plan of moving to [place]. Citlaly at bedside and will often speak for patient. He confirms that he drives, is retired, and does not know if he has a PCP in [place]. States plan is to stay in a motel or with Bevely?s daughter until they find a place to live. She states she lived here years ago and is familiar with town. Both are encouraged to find a PCP as soon as possible due to long booking times. PCP: None Payer: [employer] ELL[employer] DME: OWN 4WW at bedside, prior hip, L femur fracture Plan: Echo, lovekrysten DCP: Local mot with . Discharge Planning/Care Management CM Discharge Assessment Start: 10/17/22 08:25 Freq: Status: Active Protocol: Document 10/17/22 08:26 BQ (Rec: 10/17/22 08:28 BQ [id number]) Discharge Planning Assessment Assigned Environmental Construction Engineer Suzanne Rincon RN, CM DPOA/Assigned Designee Name Saira at bedside Advance Directives? No History Provided By Patient,Family Member Has Patient been admitted in last 30 No days? Prior Living Arrangements Homeless Comment States just moved here, drove from [place] Household Members spouse Type of transporation used prior to Drives own vehicle admit Independent with ADL's Yes: Slow to respond, slow to awaken Is patient alert and oriented? Yes Caregiver for Another No DME Already Rented / Owned FWW / Walker Barriers to Discharge No Comment Active smoker Discharge Plan Home Referrals Initiated None needed Whiteboard Updated in Patient Room with Yes name and ext. # of Environmental Construction Engineer Review Status In Process Next Review Type Continued Stay Review
[2022-10-17 09:03] VITALS: BP 122/61; PULSE 72; RESP 16; TEMP 36.4; O2SAT 96
[2022-10-17] MEDS: FUROSEMIDE 20 MG/2 ML VIAL IV (09:46)
[2022-10-17] MEDS: ALBUTEROL/IPRATROPIUM 3 ML AMPUL INH (09:48)
[2022-10-17 09:50] VITALS: PULSE 69; RESP 16; O2SAT 95
[2022-10-17 11:45] LABS: Troponin I < 0.012 ng/mL (0.01-0.034)
[2022-10-17] MEDS: ENOXAPARIN 100 MG/ML SYRINGE SUBCUT ×2 (12:10)
[2022-10-17] MEDS: HYDROCODONE/ACET 5/325 TABLET 1 TAB PO (12:10)
[2022-10-17 14:27] VITALS: BP 123/66; PULSE 75; RESP 18; TEMP 36.3; O2SAT 95
--- NOTE | 2022-10-17 17:28 | PM.DS.1 ---
History of Present Illness History of Present Illness Date Patient Seen: 10/17/22 Time Patient Seen: 17:28 Chief complaint: bilateral foot and ankle swelling Narrative: Per admitting provider, Ashley Shafer is a 67 yr old male with a medical history for only chronic tobacco abuse who presented to the ED with severe bilateral lower extremity swelling after driving from [place] to [place] and sleeping (sleeping in the truck in a seated position with feet down) in their [employer] over the past 10 days. He notes that his lower extremities have been weeping increased redness. Has had bilateral edema in the past on 1 occasion was treated with diuretics. Patient denies any prior cardiac, pulmonary, blood clots history. Denies chest pain or shortness of breath.? He does have mobility issues with joint and orthopedic pain. They state he has normal looking feet prior to their departure October 06. On admit patient denies chest pain, shortness in breath, headache, changes in vision, difficulty swallowing, speech impairment, weakness, numbness, tingling, recent falls, head injury, LOC, fever, body aches, chills, cough, recent exposure to illness, abdominal pain, nausea, vomiting, urinary incontinence/retention, dysuria, frequency, urgency, hematuria, bowel changes, constipation, incontinence, melena, rashes, recent changes to medication, illness, injury, or trauma. On admit vitals are stable 141/67, 83, 18, 97% on room air. Patient does smoke daily, alcohol use, THC. No WBC, positive neutrophils 7200. Troponin negative, BNP negative, chest x-ray negative, D-dimer 1531, CTA showed nonocclusive thrombus within a segmental branch of the left upper lobe, and right lobe 8 mm pulmonary nodule with spiculated margins. Bilateral lower extremity ultrasound showed nonocclusive thrombus within the middle portion of the left superficial vein. Patient admitted with left upper lobe pulmonary embolus, left lower extremity DVT. Discharge Providers Provider Date of admission: 10/16/22 23:52 Discharge Date: 10/17/22 Consults: 10/17/22 00:01 Consult to Discharge Planning Routine Comment: 10/17/22 00:09 Consult to Dietitian, Adult Routine Comment: Reason For Exam: BMI 30.7 10/17/22 02:14 Consult to Director Toxicology Routine Comment: Discharge provider: Andrei Brandon DO Summary Hospital Course Discharge Diagnosis: Pulmonary embolus, left upper lobe, acute, present on admission DVT, left lower extremity, acute, present on admission Bilateral lower extremity peripheral edema, acute probably on chronic, present on admission Pulmonary nodule, acute, present on admission Tobacco abuse, chronic, present on admission Obesity, mild, acute on chronic, present on admission Hospital Course: Ashley Shafer is a 67 yr old male with a medical history for only chronic tobacco abuse who presented to the ED with severe bilateral lower extremity swelling after driving from [place] to [place] and sleeping (sleeping in the truck in a seated position with feet down) in their [employer] over the past 10 days.? Patient admitted with left upper lobe pulmonary embolus, left lower extremity DVT. Echocardiogram was performed and showed a normal EF with normal diastolic function and no signficant valvular disease. He was not hypoxic. He has taken lasix before for LE edema per his spouse, suspected edema is acute on chronic. He was prescribed a small amount of lasix, though there is probably clot burden contributing to edema which will likely take some time to resolve. He was discharged with a prescription for eliquis, 10 mg BID for one week followed by 5 mg daily. He was encouraged to follow up with a PCP. He was encouraged to perform leg elevation when possible to help with edema. There was a sub 1cm spiculated nodule noted on CT imaging, 3 month interval follow up is recommended by the radiologist. Patient did not feel like he would benefit from therapy evaluation prior to discharge, he uses a walker chronically after bilateral hip surgeries, which are probably contributing in part to chronic edema. Time Spent with Patient Time spent: Greater than 30 minutes Exam Vital Signs (past 8 hours): - 10/17/22 09:50 10/17/22 14:27 Temperature 97.3 F L Pulse Rate 69 75 Respiratory Rate 16 18 Blood Pressure 123/66 Pulse Oximetry 95 95 Oxygen Delivery Method Room Air Oxygen Flow Rate 0 Oxygen Delivery Method Room Air Oxygen Flow Rate 0 Narrative Exam Narrative: General: Patient is a well developed, disheveled appearing male in no distress at this time. HEENT: Normocephalic, atraumatic Chest: Normal AP diameter and contour without kyphoscoliosis, Equal chest rise without nasal flaring, retractions, tachypneic or labored breathing. Lungs: Auscultation of all lung dsouza significantly coarse, decreased, profuse wheezing throughout Cardio: regular rate and rhythm without murmur, rubs, or gallops, no carotid bruit, no cardiac pulsations present. Abdomen: Soft nontender, negative for organomegaly, or masses. Musculoskeletal: Muscle strength and tone are equal, no deformity, crepitus, effusions, cyanosis, clubbing present. Full range of motion intact radial and pedal pulses are normal. Bilateral lower extremities: 1-2 + bilateral pitting edema left calf larger than right noted mild weeping, erythema, skin breakdown noted to posterior left calf, bilateral fungal infections and breakdown between toes. Skin: Warm dry and intact without rashes, ulcerations or petechiae. Neuro: Alert and orientated x3, moves all extremities, sensation to touch intact, no gross deficits noted of cranial nerves. Psych: Patient has a poorly kept appearance, appears chronically ill, appropriate affect, mental status attitude thought context and judgment are appropriate for age. Objective Labs 10/17/22 05:16 10/16/22 17:15 Labs: Laboratory Results - last 24 hr 10/16/22 10/16/22 10/16/22 17:15 17:15 17:15 WBC 9.7 RBC 4.85 Hgb 15.5 Hct 45.6 MCV 94.0 MCH 31.9 MCHC 34.0 RDW 15.5 H Plt Count 261 Neut % (Auto) 73.9 Lymph % (Auto) 14.6 L Johnson % (Auto) 8.3 Eos % (Auto) 2.4 Baso % (Auto) 0.8 Neut # (Auto) 7200 H Lymph # (Auto) 1400 Johnson # (Auto) 800 Eos # (Auto) 200 Baso # (Auto) 100 PT 12.2 INR 1.1 APTT 28 D-Dimer 1531 H Sodium 137 Potassium 3.9 Chloride 101 Carbon Dioxide 31 BUN 17 Creatinine 1.00 Estimated GFR > 60 BUN/Creatinine Ratio 17.0 Glucose 109 Calcium 8.9 Magnesium 2.2 Total Bilirubin 1.2 AST 22 ALT 18 Alkaline Phosphatase 131 H Total Creatine Kinase 47 L Troponin I < 0.012 NT-Pro-B Natriuret Pep 45 Total Protein 7.4 Albumin 4.0 Globulin 3.4 Albumin/Globulin Ratio 1.2 Triglycerides Cholesterol LDL Cholesterol, Calc HDL Cholesterol Lipase 43 07/14/23 07/14/23 07/14/23 05:16 05:16 05:16 WBC 7.9 RBC 4.55 Hgb 14.6 Hct 42.1 MCV 92.5 MCH 32.2 MCHC 34.8 RDW 15.3 H Plt Count 230 Neut % (Auto) 68.9 Lymph % (Auto) 18.3 L Johnson % (Auto) 9.2 Eos % (Auto) 2.5 Baso % (Auto) 1.1 Neut # (Auto) 5400 Lymph # (Auto) 1400 Johnson # (Auto) 700 Eos # (Auto) 200 Baso # (Auto) 100 PT 13.8 H INR 1.2 APTT D-Dimer Sodium Potassium Chloride Carbon Dioxide BUN Creatinine Estimated GFR BUN/Creatinine Ratio Glucose Calcium Magnesium Total Bilirubin AST ALT Alkaline Phosphatase Total Creatine Kinase Troponin I NT-Pro-B Natriuret Pep Total Protein Albumin Globulin Albumin/Globulin Ratio Triglycerides 95 Cholesterol 114 L LDL Cholesterol, Calc 64 HDL Cholesterol 31 L Lipase 10/17/22 10/17/22 05:16 10:55 WBC RBC Hgb Hct MCV MCH MCHC RDW Plt Count Neut % (Auto) Lymph % (Auto) Johnson % (Auto) Eos % (Auto) Baso % (Auto) Neut # (Auto) Lymph # (Auto) Johnson # (Auto) Eos # (Auto) Baso # (Auto) PT INR APTT D-Dimer Sodium Potassium Chloride Carbon Dioxide BUN Creatinine Estimated GFR BUN/Creatinine Ratio Glucose Calcium Magnesium Total Bilirubin AST ALT Alkaline Phosphatase Total Creatine Kinase Troponin I < 0.012 < 0.012 NT-Pro-B Natriuret Pep Total Protein Albumin Globulin Albumin/Globulin Ratio Triglycerides Cholesterol LDL Cholesterol, Calc HDL Cholesterol Lipase [facility] Medical History Tobacco abuse Surgical History History of bilateral hip replacements Family History Mother Cancer Father Heart attack Social History (Updated 10/17/22 @ 05:10 by TANO Jewell) household members: spouse Smoking Status: Current every day smoker alcohol intake: current substance use type: marijuana Discharge Plan Discharge Plan Patient Disposition: Home Provider Discharge Comment: You were admitted to the hospital because of a blood clot and LE swelling. ultrasound of your heart was normal. A small amount of diuretic was prescribed to help with lower extremities, but the best thing you can do is keep your leg elevated. Please follow up with a primary care provider as soon as possible. Discharge orders & Medications Prescriptions: New apixaban 5 mg (74 tabs) tablets,dose pack See Rx Instructions .ROUTE .COMPLEX Qty: 74 0RF Rx Instructions: orally per package direction furosemide 20 mg tablet 10 mg PO DAILY 30 Days Qty: 15 0RF Continued albuterol sulfate 90 mcg/actuation HFA aerosol inhaler 2 puff inhalation Q4-6H PRN (Reason: shortness of breath or wheezing) Qty: 8.5 0RF Rx Instructions: please dispense with spacer Diet/Activity/Treatments Diet: Diet as Tolerated and Regular Activity: As tolerated, no restrictions Visit Report/Discharge Packet Stand Alone Forms: Patient Portal/API, Stroke Signs & Symptoms Discharge Data Attending Provider: Rose Romero Admit Date/Time: 10/16/22 23:52 Quality VTE Deep Vein Thrombosis/Pulmonary Embolism Present on Admission: Yes
[2022-10-17 18:00] VITALS: RESP 18
--- NOTE | 2022-10-17 19:09 | PC.NURSE ---
Pt is cleared for discharge this evening after echo results and test results reviewed with patient. Patient and pleading to stay overnight, however discharge was anticipated for this evening. verbalizes understanding of discharge medication, activity and follow up recommendations and signs discharge paperwork. She calls her daughter Veronica for transportation this evening after dinner at 1910. Endorsed to oncoming RN that patient is discharged.
== END 2022-10-17 20:45 | disposition home or self-care (01) ==
LOC: ED 21:47 → AC 23:53
PROVIDERS: Emergency Medicine; Admitting Provider Nurse Practitioner Family; Emergency Provider Emergency Medicine; Visit Provider Nurse Practitioner Family
DX: I82.4Z2 Acute embolism and thrombosis of unspecified deep veins of left distal lower extremity (principal); R60.9 Edema, unspecified; R91.1 Solitary pulmonary nodule; F17.200 Nicotine dependence, unspecified, uncomplicated; E66.9 Obesity, unspecified; Z68.30 Body mass index [BMI] 30.0-30.9, adult
CPT/HCPCS: 36415; 71045; 71275; 80053; 80061; 82550; 83690; 83735; 83880; 84484; 85025; 85379; 85610; 85730; 93005; 93306; 93970; 94640; 94760; 96365; 96372; 96375; 99284; 99285; G0378; J1650; J1940; Q9957; Q9967

== ENCOUNTER 2022-10-22 12:20 | Emergency (ER) | payer OTHER, SELFPAY ==
[2022-10-22] VITALS (9 sets, daily range): BP systolic 125–139; BP diastolic 59–73; PULSE 54–77; RESP 18–30; TEMP 36.6; O2SAT 94–100; BMI 29.7
--- NOTE | 2022-10-22 12:36 | ED_ITS ---
HPI - Extremity Problem <Yoel Reza PA-C - Last Filed: 10/22/22 16:48> General Chief complaint: Extremity Problem,Nontraumatic Stated complaint: swollen ankles Time Seen by Provider: 10/22/22 12:22 Source: patient Mode of arrival: Ambulatory History of Present Illness HPI Narrative: This is a 67-year-old male presents to the emergency department due to a bilateral lower extremity edema. He states this has been chronic for him and was recently in the hospitalized for this. He states he was discharged a few da ys ago but the lower extremity edema has continued and he has developed a wound to the left lower extremity as well. Denies any chest pain shortness of breath or any changes in symptoms. 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 Related Data Previous Rx's Medication Instructions Recorded albuterol sulfate 90 mcg/actuation 2 puff inhalation Q4-6H PRN 01/16/21 aerosol inhaler shortness of breath or wheezing #8.5 grams apixaban 5 mg (74 tabs) tablets in See Rx Instructions PO .COMPLEX 10/17/22 a dose pack #74 ea furosemide 20 mg tablet 10 mg PO DAILY 30 days #15 tabs 10/17/22 apixaban 5 mg tablet 5 mg PO BID 3 months #180 tabs 10/22/22 apixaban 5 mg tablet 10 mg PO BID 7 days #28 tabs 10/22/22 furosemide 20 mg tablet (Lasix) 20 mg PO BID #30 tabs 10/22/22 Allergies Allergy/AdvReac Type Severity Reaction Status Date / Time Penicillins Allergy Verified 10/22/22 12:26 Review of Systems <Yoel Reza PA-C - Last Filed: 10/22/22 16:48> Review of Systems Narrative: GENERAL: Denies chills, fatigue, malaise, fever, sweats. HEENT: Denies sinus pain, ear pain, sore throat, difficulty swallowing, dizziness. RESPIRATORY: Denies dyspnea, cough, wheezing, hemoptysis, sputum. CARDIOVASCULAR: Denies chest pain, palpitations, orthopnea, edema, GASTROINTESTINAL: Denies nausea, vomiting, abdominal pain, diarrhea, constipation, melena. : Denies dysuria, frequency, incontinence, hematuria, urinary retention. MUSCULOSKELETAL: Bilateral lower extremity edema, scabbed over wound to the left lateral calf with minimal surrounding erythema. SKIN: Denies rash, skin lesions, or other NEUROLOGIC: Denies weakness, headache, numbness, change in speech, confusion, seizures, incoordination. PSYCHIATRIC: No concerning psychosocial issues. 12 point review of systems is negative except for those stated above Patient History <Yoel Reza PA-C - Last Filed: 10/22/22 16:48> Medical History Tobacco abuse Surgical History History of bilateral hip replacements Family History Mother Cancer Father Heart attack Social History (Updated 10/17/22 @ 05:10 by TANO Jewell) household members: spouse Smoking Status: Current every day smoker alcohol intake: current substance use type: marijuana Smoking Status: Current every day smoker alcohol intake frequency: 3 or more drinks per day Alcohol type: beer Substance Use Type: marijuana Exam <Yoel Reza PA-C - Last Filed: 10/22/22 16:48> Narrative Exam Narrative: GENERAL: Well-developed patient, in mild distress. HEAD: Atraumatic. Normocephalic. EYES: Pupils equal round and reactive. Extraocular motions intact. No scleral icterus. No injection or drainage. ENT: Nose without bleeding, purulent drainage. Throat without erythema, tonsillar hypertrophy or exudate. Airway patent. NECK: Trachea midline. Non tender CARDIOVASCULAR: Regular rate and rhythm without murmurs, gallops, or rubs. RESPIRATORY: Clear to auscultation. Breath sounds equal bilaterally. No wheezes, rales, or rhonchi. GASTROINTESTINAL: Abdomen soft, non-tender, nondistended. EXTREMITIES: Bilateral 2+ lower extremity pitting edema BACK: Nontender without deformity or crepitance. No flank tenderness. NEURO: AOx3. SKIN: Approximately 4 cm wide wound to the left lateral calf with minimal surrounding erythema. Wound appears scabbed over. Initial Vital Signs Initial Vital Signs: Vital Signs Temperature 97.8 F 10/22/22 12:23 Pulse Rate 77 10/22/22 12:23 Respiratory Rate 18 10/22/22 12:23 Blood Pressure 129/60 10/22/22 12:23 Pulse Oximetry 98 10/22/22 12:23 Oxygen Delivery Method Room Air 10/22/22 12:23 <Analia Armas DO - Last Filed: 10/22/22 19:51> Initial Vital Signs Initial Vital Signs: Vital Signs Temperature 97.8 F 10/22/22 12:23 Pulse Rate 77 10/22/22 12:23 Respiratory Rate 18 10/22/22 12:23 Blood Pressure 129/60 10/22/22 12:23 Pulse Oximetry 98 10/22/22 12:23 Oxygen Delivery Method Room Air 10/22/22 12:23 Course <Yoel Reza PA-C - Last Filed: 10/22/22 16:48> Orders Ordered: ED Orders 10/22/22 13:14 CT angio chest PE protocol Stat EKG-12 Lead Stat 10/22/22 13:36 Complete Blood Count AUTO DIFF Stat Comprehensive Metabolic Panel Stat NT-proBNP (BNP-Adult 18+) Stat Troponin & CK Cardiac Panel Stat 10/22/22 13:41 Consult to CUSHION GUM APPLICATOR - Compliance Clerk Stat Discontinued Medications Enoxaparin Sodium (Enoxaparin 30 Mg/0.3 Ml Syringe) 30 mg SUBCUT NOW ONE Stop: 10/22/22 13:16 Last Admin: 10/22/22 13:50 Dose: 30 mg Documented By: NILTON Vital Signs Vital signs: Vital Signs - 8 hr 10/22/22 12:23 10/22/22 13:52 10/22/22 13:57 Temperature 97.8 F Pulse Rate 77 Respiratory Rate 18 Blood Pressure 129/60 136/63 Pulse Oximetry 98 94 Oxygen Delivery Method Room Air Room Air 10/22/22 13:57 10/22/22 14:00 10/22/22 14:00 Temperature Pulse Rate 60 58 L Respiratory Rate 22 28 H Blood Pressure 129/67 Pulse Oximetry 99 99 Oxygen Delivery Method 10/22/22 14:30 10/22/22 15:00 10/22/22 15:00 Temperature Pulse Rate 59 L 54 L Respiratory Rate 30 H 22 Blood Pressure 125/59 L Pulse Oximetry 98 100 Oxygen Delivery Method 10/22/22 15:30 10/22/22 15:30 10/22/22 16:00 Temperature Pulse Rate 55 L Respiratory Rate 29 H Blood Pressure 137/73 135/65 Pulse Oximetry 99 Oxygen Delivery Method 10/22/22 16:00 10/22/22 16:30 10/22/22 16:30 Temperature Pulse Rate 55 L 63 Respiratory Rate 21 21 Blood Pressure 139/63 Pulse Oximetry 98 98 Oxygen Delivery Method <Analia Armas DO - Last Filed: 10/22/22 19:51> Orders Ordered: ED Orders 10/22/22 13:14 CT angio chest PE protocol Stat EKG-12 Lead Stat 10/22/22 13:36 Complete Blood Count AUTO DIFF Stat Comprehensive Metabolic Panel Stat NT-proBNP (BNP-Adult 18+) Stat Troponin & CK Cardiac Panel Stat 10/22/22 13:41 Consult to CUSHION GUM APPLICATOR - Compliance Clerk Stat Discontinued Medications Enoxaparin Sodium (Enoxaparin 30 Mg/0.3 Ml Syringe) 30 mg SUBCUT NOW ONE Stop: 10/22/22 13:16 Last Admin: 10/22/22 13:50 Dose: 30 mg Documented By: NILTON Vital Signs Vital signs: Vital Signs - 8 hr 10/22/22 12:23 10/22/22 13:52 10/22/22 13:57 Temperature 97.8 F Pulse Rate 77 Respiratory Rate 18 Blood Pressure 129/60 136/63 Pulse Oximetry 98 94 Oxygen Delivery Method Room Air Room Air 10/22/22 13:57 10/22/22 14:00 10/22/22 14:00 Temperature Pulse Rate 60 58 L Respiratory Rate 22 28 H Blood Pressure 129/67 Pulse Oximetry 99 99 Oxygen Delivery Method 10/22/22 14:30 10/22/22 15:00 10/22/22 15:00 Temperature Pulse Rate 59 L 54 L Respiratory Rate 30 H 22 Blood Pressure 125/59 L Pulse Oximetry 98 100 Oxygen Delivery Method 10/22/22 15:30 10/22/22 15:30 10/22/22 16:00 Temperature Pulse Rate 55 L Respiratory Rate 29 H Blood Pressure 137/73 135/65 Pulse Oximetry 99 Oxygen Delivery Method 10/22/22 16:00 10/22/22 16:30 10/22/22 16:30 Temperature Pulse Rate 55 L 63 Respiratory Rate 21 21 Blood Pressure 139/63 Pulse Oximetry 98 98 Oxygen Delivery Method MDM - Extremity (Nontraumatic) <Yoel Juaquin, PA-C - Last Filed: 10/22/22 16:48> Lab Data 10/22/22 13:36 10/22/22 13:36 Labs: Lab Results 10/22/22 10/22/22 Range/Units 13:36 13:36 WBC 7.8 (4.5-11.0) X10^3/uL RBC 4.61 (4.5-5.9) X10^6/uL Hgb 15.0 (13.5-17.5) g/dL Hct 42.9 (41-53) % MCV 93.1 (80-100) fL MCH 32.5 (26-34) PG MCHC 34.9 (30-36) % RDW 14.7 (11.6-14.8) % Plt Count 253 (150-400) X10^3/uL Neut % (Auto) 72.2 (50-75) % Lymph % (Auto) 19.0 L (25-40) % [place] % (Auto) 6.5 (3-14) % Eos % (Auto) 1.5 L (2-4) % Baso % (Auto) 0.8 (0-2) % Neut # (Auto) 5600 (4853-0092) /uL Lymph # (Auto) 1500 (1271-1883) /uL [place] # (Auto) 500 (0-900) /uL Eos # (Auto) 100 (0-450) /uL Baso # (Auto) 100 (0-100) /uL Sodium 136 L (137-145) mmol/L Potassium 3.5 (3.4-5.1) mmol/L Chloride 102 (98-107) mmol/L Carbon Dioxide 30 (22-32) mmol/L BUN 13 (9-20) mg/dL Creatinine 0.85 (0.66-1.25) mg/dL Estimated GFR > 60 (>60) mL/min BUN/Creatinine Ratio 15.3 (6-22) Glucose 115 H (80-110) mg/dL Calcium 8.8 (8.4-10.2) mg/dL Total Bilirubin 1.3 (0.2-1.3) mg/dL AST 48 (17-59) IU/L ALT 34 (<50) IU/L Alkaline Phosphatase 126 (38-126) U/L Total Creatine Kinase 69 (55-170) U/L Troponin I < 0.012 (0.01-0.034) ng/mL NT-Pro-B Natriuret Pep 235 H (<125) pg/mL Total Protein 7.1 (6.3-8.2) g/dL Albumin 3.9 (3.5-5.0) g/dL Globulin 3.2 (1.7-4.1) g/dL Albumin/Globulin Ratio 1.2 (1.0-2.8) Imaging Data CT scan - chest: Radiologist's Impression: [address] [address] [address] Scan Report Signed Patient: Ashley Shafer MR#: [id number] : 1955 Acct:[id number] Age/Sex: 67 / M Date of Service: 10/22/22 Loc: ED Accession Number: [id number] ?? Procedure: CT angio chest PE protocol Ordering Provider: Yoel Reza P.A-C PROCEDURE:? CT ANGIO CHEST PE PROTOCOL ? INDICATIONS:? Previously diagnosed PE, not been taking anticoagulation ? TECHNIQUE:? After the administration of intravenous contrast, 2 mm thick sections acquired from the pulmonary apices to the posterior costophrenic angles.? 3-dimensional maximum intensity projection (MIP) coronal and sagittal reformats were then acquired through the thorax.? For radiation dose reduction, the following was used:? automated exposure control, adjustment of mA and/or kV according to patient size.? ? COMPARISON:? [facility], CT, CT ANGIO CHEST PE PROTOCOL, 10/16/2022, 21:37. ? FINDINGS:? Image quality:? Excellent.? ? Pulmonary arteries:? Pulmonary arteries are normal in size.? Previous nonocclusive subsegmental thrombus within a branch of the left upper lobe is not as well seen on current exam.? There is a heterogeneous appearance of filling defect within a distal branch in the left lower lobe. ? Lungs and pleura:? Previous somewhat spiculated opacity in the right upper lobe is unchanged.? No pleural effusions or pneumothorax.? Central and peripheral airways are patent.? ? Mediastinum:? Heart size is normal, without pericardial effusion.? No mediastinal or hilar adenopathy.? Thoracic aorta is normal in caliber and enhancement.? Esophagus is normal in caliber, without hiatal hernia.? ? Bones and chest wall:? No suspicious bony lesions.? Ribs and thoracic spine appear intact throughout.? Thyroid gland is unremarkable.? No axillary or supraclavicular adenopathy.? ? Abdomen:? Visualized upper abdominal solid organs appear normal in the early arterial phase of enhancement.? ? IMPRESSION:? ? Previously identified subsegmental embolus in the left upper lobe is not well seen.? There is a heterogeneous distal appearance of a left lower lobe branch.? This could be a small area of thrombus versus artifact. ? ? Dictated by: Mayra Bruce M.D. on 10/22/2022 at 15:00 ? ? Approved by: Mayra Bruce M.D. on 10/22/2022 at 15:03 ? MDM Narrative Medical decision making narrative: MDM * differential diagnosis includes but not limited to pulmonary embolism, cellulitis, DVT, chronic peripheral edema CHF * Prior records reviewed: Patient was seen here 6 days ago for bilateral leg swelling. CT PE was ordered which showed a nonocclusive thrombus within a subsegmental branch of the left upper lobe as well as a right upper lobe 8 mm pulmonary nodule. DVT ultrasound also showed a nonocclusive thrombus within the midportion of the left superficial vein. Patient was admitted. Echocardiogram was performed and showed a normal ejection fraction. Patient as discharged with a prescription for Eliquis 10 mg b.i.d. for 1 week followed by 5 mg daily. Patient was prescribed 10 mg p.o. daily Lasix. * My lab interpretation: CBC unremarkable, CMP unremarkable, troponin within normal limits, BNP elevated 235, patient recently had an echo which was unremarkable. * My imgaing interpretation: CT PE ordered which showed findings suggesting possible small area of thrombus. * Clinical Decision Rules/Scores evaluated: None * Independent discussions with: None ED Course: This is a 67-year-old male presenting to the emergency department after being seen approximately 5 days ago after being diagnosed with a DVT and PE. Patient returns to the ER for continued swelling of his lower extremities. Patient was discharged with 10 mg q.d. of Lasix though increase that dose to 20 mg b.i.d. hopes this will help with his lower extremity edema. He also has a wound to the left lateral calf for which a wound care referral was given. No evidence of infection from the wound. Patient reports not taking his Eliquis that he was prescribed on discharge as he was unable to afford it. Medical so verito work was consulted who gave him resources to help establish with a primary care provider as well as described and gave him a voucher for Eliquis to cover him for 30 days. In the hopes that this will give him time to be able to establish means to receive the remaining treatment. Strongly encouraged the fact that he needs to establish with a primary care provider for long-term management of this. Patient was not complaining of any chest pain shortness of breath and vitals within normal limits. Lab work also unremarkable. Shared Decision Making: Discussed plan with patient who is comfortable with the plan. Social Considerations: None Disposition: Discharged to home <Analia Armas DO - Last Filed: 10/22/22 19:51> Lab Data Labs: Lab Results 10/22/22 10/22/22 Range/Units 13:36 13:36 WBC 7.8 (4.5-11.0) X10^3/uL RBC 4.61 (4.5-5.9) X10^6/uL Hgb 15.0 (13.5-17.5) g/dL Hct 42.9 (41-53) % MCV 93.1 (80-100) fL MCH 32.5 (26-34) PG MCHC 34.9 (30-36) % RDW 14.7 (11.6-14.8) % Plt Count 253 (150-400) X10^3/uL Neut % (Auto) 72.2 (50-75) % Lymph % (Auto) 19.0 L (25-40) % [place] % (Auto) 6.5 (3-14) % Eos % (Auto) 1.5 L (2-4) % Baso % (Auto) 0.8 (0-2) % Neut # (Auto) 5600 (4435-4145) /uL Lymph # (Auto) 1500 (6286-4912) /uL [place] # (Auto) 500 (0-900) /uL Eos # (Auto) 100 (0-450) /uL Baso # (Auto) 100 (0-100) /uL Sodium 136 L (137-145) mmol/L Potassium 3.5 (3.4-5.1) mmol/L Chloride 102 (98-107) mmol/L Carbon Dioxide 30 (22-32) mmol/L BUN 13 (9-20) mg/dL Creatinine 0.85 (0.66-1.25) mg/dL Estimated GFR > 60 (>60) mL/min BUN/Creatinine Ratio 15.3 (6-22) Glucose 115 H (80-110) mg/dL Calcium 8.8 (8.4-10.2) mg/dL Total Bilirubin 1.3 (0.2-1.3) mg/dL AST 48 (17-59) IU/L ALT 34 (<50) IU/L Alkaline Phosphatase 126 (38-126) U/L Total Creatine Kinase 69 (55-170) U/L Troponin I < 0.012 (0.01-0.034) ng/mL NT-Pro-B Natriuret Pep 235 H (<125) pg/mL Total Protein 7.1 (6.3-8.2) g/dL Albumin 3.9 (3.5-5.0) g/dL Globulin 3.2 (1.7-4.1) g/dL Albumin/Globulin Ratio 1.2 (1.0-2.8) ECG Data Attestation EKG: I personally reviewed and interpreted this ECG as follows: Interpretation: Sinus rhythm rate of 60 6p are 146 QRS of 90 QTC [address] No acute ST elevation depression noted. Patient has prior from 10/16/2022 which was reviewed no acute changes there is some mild motion artifact V3 V4 but do not appreciate new ST elevation or depression. Discharge Plan Departure Patient Disposition: Home Clinical Impression: Pulmonary embolism, Lower extremity edema Instructions: Apixaban Activity Restrictions/Additional Instructions: Thank you for coming to the [facility] Emergency Department today. We will increase your dosing of your diuretic to 20 mg twice a day in the hopes that this will help with your lower extremity swelling. Please also do your best to establish with a primary care provider that the outreach and education social worker help set up for you. Also recommend you follow up with them to discuss long-term management of the Eliquis that we will prescribed. Please use the Valium that was given to to receive your 1st months' worth of Eliquis. I have also sent a prescription to the pharmacy. If you are unable to afford it please have the pharmacy call us for us to look for an alternative to help give you the anticoagulation medication that you need. We have also placed a wound care referral for the left calf. Please follow up with them to be seen for chronic management of this. I hope you feel better soon. Prescriptions: New furosemide [Lasix] 20 mg tablet 20 mg PO BID Qty: 30 0RF apixaban 5 mg tablet 10 mg PO BID 7 Days Qty: 28 0RF apixaban 5 mg tablet 5 mg PO BID 90 Days Qty: 180 0RF Rx Instructions: Please begin taking on 10/29, after you finish the course of 10mg twice a day No Action albuterol sulfate 90 mcg/actuation HFA aerosol inhaler 2 puff inhalation Q4-6H PRN (Reason: shortness of breath or wheezing) Qty: 8.5 0RF Rx Instructions: please dispense with spacer apixaban 5 mg (74 tabs) tablets,dose pack See Rx Instructions .ROUTE .COMPLEX Qty: 74 0RF Rx Instructions: orally per package direction furosemide 20 mg tablet 10 mg PO DAILY 30 Days Qty: 15 0RF Stand Alone Forms: Patient Portal/API <Analia Armas, DO - Last Filed: 10/22/22 19:51> Cosign ED Attending Coskaylaature Attestation: I was immediately available in the department for consultation. Documentation has been reviewed. Case was discussed with myself, no acute EKG changes no hypoxia, patient has mild change in BNP at 2:35 a.m. was 45, troponin negative, no acute changes to renal function, electrolytes. Vital signs are very appropriate today. Patient had not filled his Eliquis secondary to financial issues, there were several other social issues contributing potentially for the patient. CT angio showed possible movements thrombus farther down sub segmentally versus no longer present. Patient did not have what look like thrombus on his initial CT so felt appropriate to continue with anticoagulation, patient was given dose of Lovenox here, 30 day free script, met with social work for assistance with filling medications, setting up primary care follow-up. Patient's family/ was also included conversation to help with medication compliance and help make sure patient stays safe and able to receive and take his medication.
--- NOTE | 2022-10-22 13:14 | DI.CT.S_ITS ---
PROCEDURE: CT ANGIO CHEST PE PROTOCOL INDICATIONS: Previously diagnosed PE, not been taking anticoagulation TECHNIQUE: After the administration of intravenous contrast, 2 mm thick sections acquired from the pulmonary apices to the posterior costophrenic angles. 3-dimensional maximum intensity projection (MIP) coronal and sagittal reformats were then acquired through the thorax. For radiation dose reduction, the following was used: automated exposure control, adjustment of mA and/or kV according to patient size. COMPARISON: [facility], CT, CT ANGIO CHEST PE PROTOCOL, 10/16/2022, 21:37. FINDINGS: Image quality: Excellent. Pulmonary arteries: Pulmonary arteries are normal in size. Previous nonocclusive subsegmental thrombus within a branch of the left upper lobe is not as well seen on current exam. There is a heterogeneous appearance of filling defect within a distal branch in the left lower lobe. Lungs and pleura: Previous somewhat spiculated opacity in the right upper lobe is unchanged. No pleural effusions or pneumothorax. Central and peripheral airways are patent. Mediastinum: Heart size is normal, without pericardial effusion. No mediastinal or hilar adenopathy. Thoracic aorta is normal in caliber and enhancement. Esophagus is normal in caliber, without hiatal hernia. Bones and chest wall: No suspicious bony lesions. Ribs and thoracic spine appear intact throughout. Thyroid gland is unremarkable. No axillary or supraclavicular adenopathy. Abdomen: Visualized upper abdominal solid organs appear normal in the early arterial phase of enhancement. IMPRESSION: Previously identified subsegmental embolus in the left upper lobe is not well seen. There is a heterogeneous distal appearance of a left lower lobe branch. This could be a small area of thrombus versus artifact. Dictated by: Mayra Bruce M.D. on 10/22/2022 at 15:00 Approved by: Mayra Bruce M.D. on 10/22/2022 at 15:03
[2022-10-22 13:45] LABS: Add Manual Diff / Slide Review NO; Basophils Absolute Auto 100 /uL (0-100); Basophils Percent Auto 0.8 % (0-2); Eosinophils Absolute Auto 100 /uL (0-450); Eosinophils Percent Auto 1.5 % (2-4); Hematocrit 42.9 % (41-53); Lymphocytes Absolute Auto 1500 /uL (1100-4500); Mean Corpuscular HGB Conc 34.9 % (30-36); Mean Corpuscular Hemoglobin 32.5 PG (26-34); Mean Corpuscular Volume 93.1 fL (80-100); Monocytes Absolute Auto 500 /uL (0-900); Monocytes Percent Auto 6.5 % (3-14); Neutrophils Absolute Auto 5600 /uL (1500-7000); Neutrophils Percent Auto 72.2 % (50-75); Platelet Count 253 X10^3/uL (150-400); Red Blood Cell Count 4.61 X10^6/uL (4.5-5.9); Red Cell Distribution Width 14.7 % (11.6-14.8); White Blood Cell Count 7.8 X10^3/uL (4.5-11.0)
[2022-10-22] MEDS: ENOXAPARIN 30 MG/0.3 ML SYRINGE SUBCUT (13:50)
[2022-10-22 13:59] LABS: Alanine Aminotransferase 34 IU/L (<50); Albumin 3.9 g/dL (3.5-5.0); Albumin Globulin Ratio 1.2 (1.0-2.8); Alkaline Phosphatase 126 U/L (38-126); Aspartate Aminotransferase 48 IU/L (17-59); BUN Creatinine Ratio 15.3 (6-22); Bilirubin Total 1.3 mg/dL (0.2-1.3); Blood Urea Nitrogen 13 mg/dL (9-20); Calcium 8.8 mg/dL (8.4-10.2); Carbon Dioxide 30 mmol/L (22-32); Chloride 102 mmol/L (98-107); Creatine Kinase 69 U/L (55-170); Estimated Glomerular Filt Rate > 60 mL/min (>60); Globulin 3.2 g/dL (1.7-4.1); Glucose 115 mg/dL (80-110); Potassium 3.5 mmol/L (3.4-5.1); Sodium 136 mmol/L (137-145); Total Protein 7.1 g/dL (6.3-8.2)
[2022-10-22 14:00] LABS: HEMOLYSIS 55 (0-50)
[2022-10-22 14:10] LABS: NT-proBNP (BNP-Adult 18+) 235 pg/mL (<125); Troponin I < 0.012 ng/mL (0.01-0.034)
--- NOTE | 2022-10-22 15:25 | CM.SWNOTE ---
INTERNET SYSTEMS ADMINISTRATOR CONSULT 10/22/2022 14:30 Patient is seen in the ED for concern of extremity problem. Per chart review pt was recently admitted to acute care from 10/16/22-10/17/22. Pt and , Citlaly ([phone]) recently relocated to [place] and have no local resources. Per chart daughter, Veronica, lives in the area. Pt seen by VIVEK Palacios during IP admission and provided with community resource information. See chart for additional information on this treatment episode. 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 INTERNET SYSTEMS ADMINISTRATOR met with pt at bedside. He is limited historian. , Citlaly, provides most historical information. Pt details that she and pt moved back to [place], she has lived here in the past, to be near her daughter?s family. Daughter has a one week old and 5yo and is currently in a hotel with plans for she and her family to move into a house with pt and Citlaly. Citlaly details they were staying in a motel room provided by the [employer] until they had to leave this morning. 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 She was not provided with RX voucher. SW provided her one as given by MD today and she will attempt again to fill the RX. INTERNET SYSTEMS ADMINISTRATOR provided pt and with handout on local food and basic needs resources. They will contact [facility] to ascertain if there is any assistance for a hotel. Otherwise they will continue sleeping in their vehicle. They are without any money until the . INTERNET SYSTEMS ADMINISTRATOR also discussed role of community shipyard painting supervisor Lanre Morris and was in agreement and thankful for referral. SW contacted and left for Lanre to please follow-up with patient. Pt is also in need of a PCP. INTERNET SYSTEMS ADMINISTRATOR contacted [facility]. Currently the first available PCP appt for new patients is late January/ early February. This was discussed with pt and and they request to arrange PCP appt for next available. PCP appt scheduled for 1pm check-in for 1:30pm appointment with Dr. Rodney Bearden. Per staff Kemar he will pass information along to the RN team as their goal is to get patients in within ten days for IP/ ED follow-up. The above information was printed and provided to patient?s Citlaly. --Attend PCP appointment with Dr. Bearden at [address] February 04 at 1:30pm, check-in at 1pm --SW will arrange for critical access hospital School Attendance Secretary Lanre Morris to follow-up with Citlaly at phone number [phone] --LAZARO provided patient with Eliquis voucher Plan: Pt pending medical clearance. Anticipate discharge with . Bin Burnette, INTERNET SYSTEMS ADMINISTRATOR, GRAB OPERATOR
== END 2022-10-22 16:42 | disposition home or self-care (01) ==
PROVIDERS: Emergency Provider Physician Assistant Medical
DX: I26.99 Other pulmonary embolism without acute cor pulmonale (principal); R60.0 Localized edema; Z79.01 Long term (current) use of anticoagulants
CPT/HCPCS: 36415; 71275; 80053; 82550; 83880; 84484; 85025; 93005; 96372; 99284; J1650; Q9967

== ENCOUNTER 2022-10-26 17:29 | Emergency (ER) | payer OTHER, SELFPAY ==
[2022-10-26] VITALS (7 sets, daily range): BP systolic 121–152; BP diastolic 60–72; PULSE 64–75; RESP 18–23; TEMP 36.6; O2SAT 95–99; BMI 30.8
--- NOTE | 2022-10-26 17:40 | DI.RAD.S_ITS ---
PROCEDURE: XR CHEST 1V INDICATIONS: chest pain TECHNIQUE: One view of the chest was acquired. COMPARISON: [facility], CR, XR CHEST 1V, 10/16/2022, 17:08. [facility], CT, CT ANGIO CHEST PE PROTOCOL, 10/22/2022, 13:43. FINDINGS: Surgical changes and devices: None. Lungs and pleura: Lungs are clear. No pleural effusions or pneumothorax. Mediastinum: The cardiac contours are within normal limits. The aorta demonstrates calcification and tortuosity. Bones and chest wall: No suspicious bony lesions. Right shoulder calcific tendinopathy can be seen. IMPRESSION: No acute portable chest abnormality is seen for age. Dictated by: Andi Suarez M.D. on 10/26/2022 at 17:10 Approved by: Andi Suarez M.D. on 10/26/2022 at 17:11
[2022-10-26 18:13] LABS: Add Manual Diff / Slide Review NO; Basophils Absolute Auto 100 /uL (0-100); Basophils Percent Auto 1.4 % (0-2); Eosinophils Absolute Auto 100 /uL (0-450); Eosinophils Percent Auto 1.7 % (2-4); Hematocrit 44.4 % (41-53); Hemoglobin 15.7 g/dL (13.5-17.5); INR 1.8 (0.9-1.3); Lymphocytes Absolute Auto 1300 /uL (1100-4500); Lymphocytes Percent Auto 20.4 % (25-40); Mean Corpuscular HGB Conc 35.5 % (30-36); Mean Corpuscular Hemoglobin 32.5 PG (26-34); Mean Corpuscular Volume 91.7 fL (80-100); Monocytes Absolute Auto 500 /uL (0-900); Monocytes Percent Auto 7.9 % (3-14); Neutrophils Absolute Auto 4500 /uL (1500-7000); Neutrophils Percent Auto 68.6 % (50-75); Platelet Count 271 X10^3/uL (150-400); Prothrombin Time 20.9 SECONDS (10.1-12.7); Red Blood Cell Count 4.84 X10^6/uL (4.5-5.9); Red Cell Distribution Width 14.6 % (11.6-14.8); White Blood Cell Count 6.6 X10^3/uL (4.5-11.0)
[2022-10-26 18:15] LABS: PTT Partial Thromboplastin Tim 36 SECONDS (26-36)
--- NOTE | 2022-10-26 18:17 | ED_ITS ---
HPI - Extremity Problem General Chief complaint: Extremity Problem,Nontraumatic Stated complaint: ankles/left leg swollen Time Seen by Provider: 10/26/22 18:07 Source: patient Mode of arrival: Ambulatory History of Present Illness HPI Narrative: 67-year-old male daily smoker with history of pulmonary embolism and lower extremity edema presents with a 2nd time this week in the chief complaint of bilateral lower extremity edema. He states it is chronic for him but he has been hospitalized in the past. Patient was seen and evaluated in our emergency department on October 16 with a chief complaint of bilateral lower extremity swelling after driving [place]country. He was found to have lower extremity DVT in his left leg and a CT of his chest which noted a PE of the left upper lobe. Patient was discharged the following day on a prescription for Eliquis and Lasix 10 mg daily. He returned again on October 22 for ongoing swelling in his lower extremities and admits that he had not been able to fill his prescriptions due to financial issues. He had subsequent dose of Lovenox, given a 30 day free prescription and that was social work for assistance with filling medications and setting up primary care Related Data Previous Rx's Medication Instructions Recorded albuterol sulfate 90 mcg/actuation 2 puff inhalation Q4-6H PRN 01/16/21 aerosol inhaler shortness of breath or wheezing #8.5 grams apixaban 5 mg (74 tabs) tablets in See Rx Instructions PO .COMPLEX 10/17/22 a dose pack #74 ea furosemide 20 mg tablet 10 mg PO DAILY 30 days #15 tabs 10/17/22 apixaban 5 mg tablet 5 mg PO BID 3 months #180 tabs 10/22/22 apixaban 5 mg tablet 10 mg PO BID 7 days #28 tabs 10/22/22 furosemide 20 mg tablet (Lasix) 20 mg PO BID #30 tabs 10/22/22 furosemide 40 mg tablet (Lasix) 40 mg PO BID #60 tabs 10/26/22 Allergies Allergy/AdvReac Type Severity Reaction Status Date / Time Penicillins Allergy Verified 10/22/22 12:26 Patient History Medical History Tobacco abuse Surgical History History of bilateral hip replacements Family History Mother Cancer Father Heart attack Social History (Updated 10/17/22 @ 05:10 [facility] household members: spouse Smoking Status: Current every day smoker alcohol intake: current substance use type: marijuana Smoking Status: Current every day smoker alcohol intake frequency: 3 or more drinks per day Alcohol type: beer Substance Use Type: does not use and marijuana Exam Initial Vital Signs Initial Vital Signs: Vital Signs Temperature 97.9 F 10/26/22 17:35 Pulse Rate 75 10/26/22 17:35 Respiratory Rate 18 10/26/22 17:35 Blood Pressure 152/72 H 10/26/22 17:35 Pulse Oximetry 99 10/26/22 17:35 Oxygen Delivery Method Room Air 10/26/22 17:35 Course Orders Ordered: ED Orders 10/26/22 17:40 XR chest 1V Stat 10/26/22 17:46 EKG-12 Lead Stat 10/26/22 18:00 BNP [NT-proBNP (BNP-Adult 18+)] Stat Complete Blood Count AUTO DIFF Stat Comprehensive Metabolic Panel Stat Lipase Stat Magnesium Stat PTT Partial Thromboplastin Clifford Stat Prothrombin Time INR Stat Troponin & CK Cardiac Panel Stat Discontinued Medications Furosemide (Furosemide 40 Mg/4 Ml Vial) 40 mg IV NOW ONE Stop: 10/26/22 21:37 Vital Signs Vital signs: Vital Signs - 8 hr 10/26/22 17:35 10/26/22 19:03 10/26/22 19:03 Temperature 97.9 F Pulse Rate 75 64 Respiratory Rate 18 19 Blood Pressure 152/72 H 133/61 Pulse Oximetry 99 98 Oxygen Delivery Method Room Air 10/26/22 19:30 10/26/22 19:30 10/26/22 20:00 Temperature Pulse Rate 64 Respiratory Rate 19 Blood Pressure 127/61 131/60 Pulse Oximetry 96 Oxygen Delivery Method 10/26/22 20:00 10/26/22 20:30 Temperature Pulse Rate 68 67 Respiratory Rate 20 23 Blood Pressure Pulse Oximetry 97 97 Oxygen Delivery Method MDM - Extremity (Nontraumatic) Lab Data 10/26/22 18:00 10/26/22 18:00 Labs: Lab Results 10/26/22 10/26/22 10/26/22 Range/Units 18:00 18:00 18:00 WBC 6.6 (4.5-11.0) X10^3/uL RBC 4.84 (4.5-5.9) X10^6/uL Hgb 15.7 (13.5-17.5) g/dL Hct 44.4 (41-53) % MCV 91.7 (80-100) fL MCH 32.5 (26-34) PG MCHC 35.5 (30-36) % RDW 14.6 (11.6-14.8) % Plt Count 271 (150-400) X10^3/uL Neut % (Auto) 68.6 (50-75) % Lymph % (Auto) 20.4 L (25-40) % [place] % (Auto) 7.9 (3-14) % Eos % (Auto) 1.7 L (2-4) % Baso % (Auto) 1.4 (0-2) % Neut # (Auto) 4500 (3416-4815) /uL Lymph # (Auto) 1300 (8311-0433) /uL [place] # (Auto) 500 (0-900) /uL Eos # (Auto) 100 (0-450) /uL Baso # (Auto) 100 (0-100) /uL PT 20.9 H D (10.1-12.7) SECONDS INR 1.8 H (0.9-1.3) APTT 36 (26-36) SECONDS Sodium 135 L (137-145) mmol/L Potassium 3.3 L (3.4-5.1) mmol/L Chloride 96 L (98-107) mmol/L Carbon Dioxide 31 (22-32) mmol/L BUN 20 (9-20) mg/dL Creatinine 1.15 (0.66-1.25) mg/dL Estimated GFR > 60 (>60) mL/min BUN/Creatinine Ratio 17.4 (6-22) Glucose 107 (80-110) mg/dL Calcium 9.1 (8.4-10.2) mg/dL Magnesium 1.9 (1.6-2.3) mg/dL Total Bilirubin 1.2 (0.2-1.3) mg/dL AST 31 (17-59) IU/L ALT 31 (<50) IU/L Alkaline Phosphatase 133 H (38-126) U/L Total Creatine Kinase 25 L (55-170) U/L Troponin I < 0.012 (0.01-0.034) ng/mL NT-Pro-B Natriuret Pep (<125) pg/mL Total Protein 7.7 (6.3-8.2) g/dL Albumin 4.1 (3.5-5.0) g/dL Globulin 3.6 (1.7-4.1) g/dL Albumin/Globulin Ratio 1.1 (1.0-2.8) Lipase 48 (23-300) U/L 10/26/22 Range/Units 18:00 WBC (4.5-11.0) X10^3/uL RBC (4.5-5.9) X10^6/uL Hgb (13.5-17.5) g/dL Hct (41-53) % MCV (80-100) fL MCH (26-34) PG MCHC (30-36) % RDW (11.6-14.8) % Plt Count (150-400) X10^3/uL Neut % (Auto) (50-75) % Lymph % (Auto) (25-40) % [place] % (Auto) (3-14) % Eos % (Auto) (2-4) % Baso % (Auto) (0-2) % Neut # (Auto) (6943-5543) /uL Lymph # (Auto) (2307-9680) /uL [place] # (Auto) (0-900) /uL Eos # (Auto) (0-450) /uL Baso # (Auto) (0-100) /uL PT (10.1-12.7) SECONDS INR (0.9-1.3) APTT (26-36) SECONDS Sodium (137-145) mmol/L Potassium (3.4-5.1) mmol/L Chloride (98-107) mmol/L Carbon Dioxide (22-32) mmol/L BUN (9-20) mg/dL Creatinine (0.66-1.25) mg/dL Estimated GFR (>60) mL/min BUN/Creatinine Ratio (6-22) Glucose (80-110) mg/dL Calcium (8.4-10.2) mg/dL Magnesium (1.6-2.3) mg/dL Total Bilirubin (0.2-1.3) mg/dL AST (17-59) IU/L ALT (<50) IU/L Alkaline Phosphatase (38-126) U/L Total Creatine Kinase (55-170) U/L Troponin I (0.01-0.034) ng/mL NT-Pro-B Natriuret Pep 44 (<125) pg/mL Total Protein (6.3-8.2) g/dL Albumin (3.5-5.0) g/dL Globulin (1.7-4.1) g/dL Albumin/Globulin Ratio (1.0-2.8) Lipase (23-300) U/L MDM Narrative Medical decision making narrative: [67] year old patient presents with bilateral lower extremity edema Multiple etiologies for patient's symptoms considered including, but not limited to: [Dependent edema versus CHF versus other] Prior Charts reviewed in our EMR Primary Historian: patient Labs reviewed and interpreted by myself: No significant abnormal findings Imaging reviewed: Chest x-ray without acute findings Patient's history and physical exam are reassuring. He does not have any shortness of breath and states his legs are no more swollen than they had been. He has been taking his Lasix as prescribed but admits that he has to sleep upright and his legs dangling down. We did discuss the importance of elevating his legs the best that he can I increased his Lasix at least in the short term. He is not hypoxemic, has no increased work of breathing and shows no signs of need for admission Patient's symptoms improved over duration of stay with above-stated therapies. Findings and discharge diagnosis discussed with patient/family followed by verbalization of understanding Return precautions discussed with patient/family whom verbalize understanding of diagnosis and plan Discharge Plan Departure Patient Disposition: Home Clinical Impression: Lower extremity edema Instructions: DI for Dependent Edema Activity Restrictions/Additional Instructions: *You have been diagnosed with [bilateral lower extremity edema] *What to do: * as we discussed we will be increasing your Lasix to 40 mg twice daily Please continue to take your regular medications as directed. [ x] New medication prescriptions sent to your pharmacy: [ [facility]] [ ] New medication written as a paper prescription [ ] No new medications given *Please follow up with your primary care provider in 2-3 days, call for an appointment. Let them know you were seen in the Emergency Department and that we ask that you be seen in follow up. We will electronically transmit a record of today's note if your PCP is in our system * please try your best to keep her feet elevated when you sleep, I recognized this is difficult given your current living situation *Return to Emergency Department if you should have any new, worsening or concerning symptoms, such as [fever greater than 101 F, shaking chills, worsening pain, persistent vomiting or other bothersome symptoms] Prescriptions: New furosemide [Lasix] 40 mg tablet 40 mg PO BID Qty: 60 0RF No Action albuterol sulfate 90 mcg/actuation HFA aerosol inhaler 2 puff inhalation Q4-6H PRN (Reason: shortness of breath or wheezing) Qty: 8.5 0RF Rx Instructions: please dispense with spacer apixaban 5 mg (74 tabs) tablets,dose pack See Rx Instructions .ROUTE .COMPLEX Qty: 74 0RF Rx Instructions: orally per package direction furosemide 20 mg tablet 10 mg PO DAILY 30 Days Qty: 15 0RF furosemide [Lasix] 20 mg tablet 20 mg PO BID Qty: 30 0RF apixaban 5 mg tablet 10 mg PO BID 7 Days Qty: 28 0RF apixaban 5 mg tablet 5 mg PO BID 90 Days Qty: 180 0RF Rx Instructions: Please begin taking on 10/29, after you finish the course of 10mg twice a day Stand Alone Forms: Patient Portal/API
[2022-10-26 18:19] LABS: HEMOLYSIS < 15 (0-50); Potassium 3.3 mmol/L (3.4-5.1)
[2022-10-26 18:20] LABS: Alanine Aminotransferase 31 IU/L (<50); Albumin 4.1 g/dL (3.5-5.0); Albumin Globulin Ratio 1.1 (1.0-2.8); Alkaline Phosphatase 133 U/L (38-126); Aspartate Aminotransferase 31 IU/L (17-59); BUN Creatinine Ratio 17.4 (6-22); Bilirubin Total 1.2 mg/dL (0.2-1.3); Blood Urea Nitrogen 20 mg/dL (9-20); Calcium 9.1 mg/dL (8.4-10.2); Carbon Dioxide 31 mmol/L (22-32); Chloride 96 mmol/L (98-107); Creatine Kinase 25 U/L (55-170); Estimated Glomerular Filt Rate > 60 mL/min (>60); Globulin 3.6 g/dL (1.7-4.1); Glucose 107 mg/dL (80-110); Lipase 48 U/L (23-300); Magnesium 1.9 mg/dL (1.6-2.3); Sodium 135 mmol/L (137-145); Total Protein 7.7 g/dL (6.3-8.2)
[2022-10-26 18:29] LABS: NT-proBNP (BNP-Adult 18+) 44 pg/mL (<125)
[2022-10-26 18:31] LABS: Troponin I < 0.012 ng/mL (0.01-0.034)
[2022-10-26] MEDS: FUROSEMIDE 40 MG/4 ML VIAL IV (21:44)
== END 2022-10-26 21:52 | disposition home or self-care (01) ==
PROVIDERS: Emergency Medicine; Emergency Provider Emergency Medicine
DX: R60.0 Localized edema (principal); R07.9 Chest pain, unspecified; Z79.01 Long term (current) use of anticoagulants
CPT/HCPCS: 36415; 71045; 80053; 82550; 83690; 83735; 83880; 84484; 85025; 85610; 85730; 93005; 96374; 99284; J1940

== ENCOUNTER 2022-11-17 02:15 | Emergency (ER) | payer OTHER, SELFPAY ==
[2022-11-17 02:20] VITALS: BP 154/84; PULSE 91; RESP 16; TEMP 36.4; O2SAT 95; BMI 30.1
--- NOTE | 2022-11-17 02:23 | DI.RAD.S_ITS ---
PROCEDURE: XR CHEST 1V INDICATIONS: Shortness of breath TECHNIQUE: One view of the chest was acquired. COMPARISON: [facility], CR, XR CHEST 1V, 10/26/2022, 17:40. [facility], CR, XR CHEST 1V, 10/16/2022, 17:08. [facility], CR, XR CHEST 2V, 01/16/2021, 14:51. FINDINGS: Surgical changes and devices: None. Lungs and pleura: Lungs are clear. No pleural effusions or pneumothorax. Mediastinum: Mediastinal contours appear normal. Heart size is normal. Bones and chest wall: No suspicious bony lesions. Overlying soft tissues appear unremarkable. IMPRESSION: No acute cardiopulmonary abnormality. There is no significant discrepancy when compared to the overnight preliminary report. Approved by: Delmar Taylor M.D. on 11/17/2022 at 8:16
--- NOTE | 2022-11-17 02:24 | ED.SOB ---
HPI - SOB/Dyspnea General Chief Complaint: Shortness of Breath/Dyspnea Stated Complaint: sob Time Seen by Provider: 11/17/22 02:22 Source: patient Mode of arrival: Ambulatory History of Present Illness HPI Narrative: 67-year-old male smoker with history of COPD and recently diagnosed pulmonary embolism presents with his in the chief complaint of increasing work of breathing for the past 4-5 days. He is had no runny nose or sneezing but has had frequent cough. He denies any chest pain, fever or chills. Denies any nausea, vomiting or diarrhea. He has been taking his medications as directed. Related Data Previous Rx's Medication Instructions Recorded albuterol sulfate 90 mcg/actuation 2 puff inhalation Q4-6H PRN 01/16/21 aerosol inhaler shortness of breath or wheezing #8.5 grams apixaban 5 mg (74 tabs) tablets in See Rx Instructions PO .COMPLEX 10/17/22 a dose pack #74 ea apixaban 5 mg tablet 5 mg PO BID 3 months #180 tabs 10/22/22 furosemide 20 mg tablet (Lasix) 20 mg PO BID #30 tabs 10/22/22 furosemide 40 mg tablet (Lasix) 40 mg PO BID #60 tabs 10/26/22 doxycycline hyclate 100 mg tablet 100 mg PO BID #20 tabs 11/17/22 prednisone 10 mg tablet See Rx Instructions .Route 11/17/22 .COMPLEX #30 tabs Allergies Allergy/AdvReac Type Severity Reaction Status Date / Time Penicillins Allergy Verified 11/17/22 02:22 Review of Systems Review of Systems Narrative: GENERAL: Denies chills, fatigue, malaise, fever, sweats. HEENT: Denies sinus pain, ear pain, sore throat, difficulty swallowing, dizziness. RESPIRATORY: see HPI CARDIOVASCULAR: Denies chest pain, palpitations, orthopnea, edema, GASTROINTESTINAL: Denies nausea, vomiting, abdominal pain, diarrhea, constipation, melena. : Denies dysuria, frequency, incontinence, hematuria, urinary retention. MUSCULOSKELETAL: denies weakness, joint pain, or bony pain SKIN: Denies rash, skin lesions, or other NEUROLOGIC: Denies weakness, headache, numbness, change in speech, confusion, seizures, incoordination. PSYCHIATRIC: No concerning psychosocial issues. 12 point review of systems is negative except for those stated above Patient History Medical History Tobacco abuse Surgical History History of bilateral hip replacements Family History Mother Cancer Father Heart attack Social History household members: spouse Smoking Status: Current every day smoker alcohol intake: current substance use type: marijuana Smoking Status: Current every day smoker alcohol intake frequency: 3 or more drinks per day Alcohol type: beer Substance Use Type: does not use and marijuana Exam Narrative Exam Narrative: GENERAL: [67] year old patient appears stated age. Well-developed patient, in mild distress. HEAD: Atraumatic. Normocephalic. EYES: Pupils equal round and reactive. Extraocular motions intact. No scleral icterus. No injection or drainage. ENT: Nose without bleeding, purulent drainage. Throat without erythema, tonsillar hypertrophy or exudate. Airway patent. NECK: Trachea midline. Non tender CARDIOVASCULAR: Regular rate and rhythm without murmurs, gallops, or rubs. RESPIRATORY: Decreased breath sounds throughout with prolonged expiratory phase, no obvious rales rhonchi but there is faint wheezing GASTROINTESTINAL: Abdomen soft, non-tender, nondistended. EXTREMITIES: No edema or joint tenderness. BACK: Nontender without deformity or crepitance. No flank tenderness. NEURO: AOx3. SKIN: No rash or erythema of visible areas Initial Vital Signs Initial Vital Signs: Vital Signs Temperature 97.6 F 11/17/22 02:20 Pulse Rate 91 H 11/17/22 02:20 Respiratory Rate 16 11/17/22 02:20 Blood Pressure 154/84 H 11/17/22 02:20 Pulse Oximetry 95 11/17/22 02:20 Oxygen Delivery Method Room Air 11/17/22 02:20 Course Orders Ordered: ED Orders 11/17/22 02:23 XR chest 1V Stat EKG-12 Lead Stat Measure peak expiratory flow ONCE RT Consult Eval and Treat NOW 11/17/22 02:40 Complete Blood Count AUTO DIFF Stat Comprehensive Metabolic Panel Stat Lactate (Lactic Acid) Stat NT-proBNP (BNP-Adult 18+) Stat Procalcitonin Stat Prothrombin Time INR Stat Troponin I Stat Discontinued Medications Albuterol/Ipratropium (Albuterol/Ipratropium 3 Ml Ampul) 3 ml INH NOW ONE Stop: 11/17/22 02:30 Last Admin: 11/17/22 02:33 Dose: 3 ml Documented By: SUSIE Albuterol/Ipratropium (Albuterol/Ipratropium 3 Ml Ampul) 3 ml INH NOW ONE Stop: 11/17/22 02:40 Last Admin: 11/17/22 02:33 Dose: 3 ml Documented By: SUSIE Methylprednisolone (Methylprednisolone 125 Mg/2 Ml Vial) 125 mg IV NOW ONE Stop: 11/17/22 02:30 Last Admin: 11/17/22 02:45 Dose: 125 mg Documented By: SHAMIR Vital Signs Vital signs: Vital Signs - 8 hr 11/17/22 02:20 11/17/22 02:33 Temperature 97.6 F Pulse Rate 91 H 93 H Respiratory Rate 16 24 Blood Pressure 154/84 H Pulse Oximetry 95 95 Oxygen Delivery Method Room Air Room Air Oxygen Flow Rate 0 Fraction of Inspired Oxygen 21 MDM - SOB/Dyspnea Lab Data 11/17/22 02:40 11/17/22 02:40 Labs: Lab Results 11/17/22 11/17/22 11/17/22 Range/Units 02:40 02:40 02:40 WBC 8.2 (4.5-11.0) X10^3/uL RBC 4.34 L (4.5-5.9) X10^6/uL Hgb 14.2 (13.5-17.5) g/dL Hct 39.8 L (41-53) % MCV 91.8 (80-100) fL MCH 32.8 (26-34) PG MCHC 35.8 (30-36) % RDW 15.0 H (11.6-14.8) % Plt Count 288 (150-400) X10^3/uL Neut % (Auto) 60.5 (50-75) % Lymph % (Auto) 28.4 (25-40) % [place] % (Auto) 6.5 (3-14) % Eos % (Auto) 3.4 (2-4) % Baso % (Auto) 1.2 (0-2) % Neut # (Auto) 4900 (1196-2706) /uL Lymph # (Auto) 2300 (9695-1782) /uL [place] # (Auto) 500 (0-900) /uL Eos # (Auto) 300 (0-450) /uL Baso # (Auto) 100 (0-100) /uL PT 11.7 (10.1-12.7) SECONDS INR 1.0 (0.9-1.3) Sodium 137 (137-145) mmol/L Potassium 4.1 (3.4-5.1) mmol/L Chloride 105 (98-107) mmol/L Carbon Dioxide 27 (22-32) mmol/L BUN 17 (9-20) mg/dL Creatinine 0.92 (0.66-1.25) mg/dL Estimated GFR > 60 (>60) mL/min BUN/Creatinine Ratio 18.5 (6-22) Glucose 110 (80-110) mg/dL Lactate (0.7-2.1) mmol/L Calcium 8.9 (8.4-10.2) mg/dL Total Bilirubin 0.7 (0.2-1.3) mg/dL AST 21 (17-59) IU/L ALT 16 (<50) IU/L Alkaline Phosphatase 125 (38-126) U/L Troponin I < 0.012 (0.01-0.034) ng/mL NT-Pro-B Natriuret Pep 148 H (<125) pg/mL Total Protein 7.1 (6.3-8.2) g/dL Albumin 3.8 (3.5-5.0) g/dL Globulin 3.3 (1.7-4.1) g/dL Albumin/Globulin Ratio 1.2 (1.0-2.8) Procalcitonin (<0.5) ng/mL 11/17/22 11/17/22 Range/Units 02:40 02:40 WBC (4.5-11.0) X10^3/uL RBC (4.5-5.9) X10^6/uL Hgb (13.5-17.5) g/dL Hct (41-53) % MCV (80-100) fL MCH (26-34) PG MCHC (30-36) % RDW (11.6-14.8) % Plt Count (150-400) X10^3/uL Neut % (Auto) (50-75) % Lymph % (Auto) (25-40) % [place] % (Auto) (3-14) % Eos % (Auto) (2-4) % Baso % (Auto) (0-2) % Neut # (Auto) (9125-0848) /uL Lymph # (Auto) (3128-9219) /uL [place] # (Auto) (0-900) /uL Eos # (Auto) (0-450) /uL Baso # (Auto) (0-100) /uL PT (10.1-12.7) SECONDS INR (0.9-1.3) Sodium (137-145) mmol/L Potassium (3.4-5.1) mmol/L Chloride (98-107) mmol/L Carbon Dioxide (22-32) mmol/L BUN (9-20) mg/dL Creatinine (0.66-1.25) mg/dL Estimated GFR (>60) mL/min BUN/Creatinine Ratio (6-22) Glucose (80-110) mg/dL Lactate 1.1 (0.7-2.1) mmol/L Calcium (8.4-10.2) mg/dL Total Bilirubin (0.2-1.3) mg/dL AST (17-59) IU/L ALT (<50) IU/L Alkaline Phosphatase (38-126) U/L Troponin I (0.01-0.034) ng/mL NT-Pro-B Natriuret Pep (<125) pg/mL Total Protein (6.3-8.2) g/dL Albumin (3.5-5.0) g/dL Globulin (1.7-4.1) g/dL Albumin/Globulin Ratio (1.0-2.8) Procalcitonin 0.06 (<0.5) ng/mL MDM Narrative Medical decision making narrative: CC: 67-year-old male smoker with worsening shortness of breath for the past few days Complicating co-morbidities: Age, smoking, PE, anticoagulation Data collected from: Patient Medical records reviewed: Prior notes reviewed in our EMR Differential considered, but not limited to: COPD exacerbation versus pneumonia versus other Exam documented above, pertinent findings include: Increased work of breathing, decreased breath sounds and prolonged expiratory phase Lab Test results independently reviewed as above. Pertinent findings: No leukocytosis or left shift, no signs of anemia, electrolytes and renal function within normal Independently reviewed EKG as above Imaging studies independently reviewed: Chest x-ray without obvious airspace disease Treatments: DuoNeb, Solu-Medrol Re-evaluations: Patient with significant improvement, resting comfortably, sats in the low-to-mid 90s which is his baseline, no work of breathing Discussion: 67-year-old male with COPD and known small pulmonary embolism presents with increasing work of breathing. His history and physical exam are reassuring, multiple diagnoses considered as noted above. Patient has had no fever, no purulent cough but does have an exacerbation of COPD. Chest x-ray without obvious infiltrate, no white count. Will treat for atypical pneumonia. Patient had profound response to DuoNeb and steroids suggesting a large element of COPD exacerbation. No further workup or treatment needed. Prescription for antibiotics for atypical coverage as well as steroid taper sent to his pharmacy. Respiratory therapy provided spacers training Disposition: see below, along with detailed discharge instructions that have been reviewed with patient as well as indications for ED re-evaluation and additional outpatient follow up Discharge Plan Departure Patient Disposition: Home Clinical Impression: Acute exacerbation of chronic obstructive pulmonary disease, Atypical pneumonia Instructions: Chronic Obstructive Pulmonary Disease, DI for Atypical Pneumonia Activity Restrictions/Additional Instructions: *You have been diagnosed with [COPD exacerbation and atypical pneumonia] *What to do: *Please continue to take your regular medications as directed. [x ] New medication prescriptions sent to your pharmacy: [ [facility] [place]] [ ] New medication written as a paper prescription [ ] No new medications given *Please follow up with your primary care provider in 2-3 days, call for an appointment. Let them know you were seen in the Emergency Department and that we ask that you be seen in follow up. We will electronically transmit a record of today's note if your PCP is in our system *If you do not have a primary care provider please contact the [facility] Resource line at [phone]. They will ask some questions about your medical history and help get you set up with a doctor in the community. *Return to Emergency Department if you should have any new, worsening or concerning symptoms, such as [fever greater than 101 F, shaking chills, worsening pain, persistent vomiting or other bothersome symptoms] Prescriptions: New prednisone 10 mg tablet See Rx Instructions .ROUTE .COMPLEX Qty: 30 0RF Rx Instructions: Day 1,2,3: 40mg PO Daily Day 4,5,6: 30mg PO Daily Day 7,8,9: 20mg PO Daily Day 10,11,12: 10mg PO Daily #30 doxycycline hyclate 100 mg tablet 100 mg PO BID Qty: 20 0RF No Action albuterol sulfate 90 mcg/actuation HFA aerosol inhaler 2 puff inhalation Q4-6H PRN (Reason: shortness of breath or wheezing) Qty: 8.5 0RF Rx Instructions: please dispense with spacer apixaban 5 mg (74 tabs) tablets,dose pack See Rx Instructions .ROUTE .COMPLEX Qty: 74 0RF Rx Instructions: orally per package direction furosemide [Lasix] 20 mg tablet 20 mg PO BID Qty: 30 0RF apixaban 5 mg tablet 5 mg PO BID 90 Days Qty: 180 0RF Rx Instructions: Please begin taking on 10/29, after you finish the course of 10mg twice a day furosemide [Lasix] 40 mg tablet 40 mg PO BID Qty: 60 0RF Stand Alone Forms: Patient Portal/API
[2022-11-17 02:32] VITALS: PULSE 93; O2SAT 96
[2022-11-17 02:33] VITALS: PULSE 93; RESP 24; O2SAT 95
[2022-11-17] MEDS: ALBUTEROL/IPRATROPIUM 3 ML AMPUL INH ×2 (02:33)
[2022-11-17] MEDS: methylPREDNISolone 125 MG/2 ML VIAL IV (02:45)
[2022-11-17 02:59] LABS: Add Manual Diff / Slide Review NO; Basophils Absolute Auto 100 /uL (0-100); Basophils Percent Auto 1.2 % (0-2); Eosinophils Absolute Auto 300 /uL (0-450); Eosinophils Percent Auto 3.4 % (2-4); Hematocrit 39.8 % (41-53); Hemoglobin 14.2 g/dL (13.5-17.5); Lymphocytes Absolute Auto 2300 /uL (1100-4500); Lymphocytes Percent Auto 28.4 % (25-40); Mean Corpuscular HGB Conc 35.8 % (30-36); Mean Corpuscular Hemoglobin 32.8 PG (26-34); Mean Corpuscular Volume 91.8 fL (80-100); Monocytes Absolute Auto 500 /uL (0-900); Monocytes Percent Auto 6.5 % (3-14); Neutrophils Absolute Auto 4900 /uL (1500-7000); Neutrophils Percent Auto 60.5 % (50-75); Platelet Count 288 X10^3/uL (150-400); Red Blood Cell Count 4.34 X10^6/uL (4.5-5.9); White Blood Cell Count 8.2 X10^3/uL (4.5-11.0)
[2022-11-17 03:00] VITALS: BP 138/62; PULSE 81; RESP 23; O2SAT 95
[2022-11-17 03:00] LABS: Prothrombin Time 11.7 SECONDS (10.1-12.7)
[2022-11-17 03:04] LABS: Lactate (Lactic Acid) 1.1 mmol/L (0.7-2.1)
[2022-11-17 03:05] LABS: Alanine Aminotransferase 16 IU/L (<50); Albumin 3.8 g/dL (3.5-5.0); Albumin Globulin Ratio 1.2 (1.0-2.8); Alkaline Phosphatase 125 U/L (38-126); Aspartate Aminotransferase 21 IU/L (17-59); BUN Creatinine Ratio 18.5 (6-22); Bilirubin Total 0.7 mg/dL (0.2-1.3); Blood Urea Nitrogen 17 mg/dL (9-20); Calcium 8.9 mg/dL (8.4-10.2); Carbon Dioxide 27 mmol/L (22-32); Chloride 105 mmol/L (98-107); Estimated Glomerular Filt Rate > 60 mL/min (>60); Globulin 3.3 g/dL (1.7-4.1); Glucose 110 mg/dL (80-110); HEMOLYSIS < 15 (0-50); Potassium 4.1 mmol/L (3.4-5.1); Sodium 137 mmol/L (137-145); Total Protein 7.1 g/dL (6.3-8.2)
[2022-11-17 03:16] LABS: NT-proBNP (BNP-Adult 18+) 148 pg/mL (<125); Troponin I < 0.012 ng/mL (0.01-0.034)
[2022-11-17 03:30] VITALS: PULSE 83; RESP 26; O2SAT 93
[2022-11-17 03:46] LABS: Procalcitonin 0.06 ng/mL (<0.5)
[2022-11-17 04:00] VITALS: BP 119/61; PULSE 78; RESP 24; O2SAT 93
== END 2022-11-17 04:39 | disposition home or self-care (01) ==
PROVIDERS: Emergency Provider Emergency Medicine
DX: J44.1 Chronic obstructive pulmonary disease with (acute) exacerbation (principal); J18.9 Pneumonia, unspecified organism; Z79.01 Long term (current) use of anticoagulants
CPT/HCPCS: 36415; 71045; 80053; 83605; 83880; 84145; 84484; 85025; 85610; 93005; 96374; 99284; J2930

== ENCOUNTER 2022-12-12 19:51 | Emergency (ER) | payer OTHER, SELFPAY ==
[2022-12-12] VITALS (8 sets, daily range): BP systolic 109–184; BP diastolic 56–73; PULSE 85–112; RESP 18–35; TEMP 37; O2SAT 94–97; BMI 30.1
--- NOTE | 2022-12-12 20:45 | DI.RAD.S_ITS ---
PROCEDURE: XR CHEST 1V INDICATIONS: Chest pain. TECHNIQUE: One view of the chest was acquired. COMPARISON: [facility], CT, CT ANGIO CHEST PE PROTOCOL, 10/22/2022, 13:43. [facility], CR, XR CHEST 1V, 11/17/2022, 2:55. FINDINGS: Surgical changes and devices: None. Lungs and pleura: Lungs are clear. No pleural effusions or pneumothorax. The left hemidiaphragm can be seen. Mediastinum: Mediastinal contours appear normal. Heart size is normal. Atherosclerotic calcification of the aortic arch is noted. Bones and chest wall: No suspicious bony lesions. Overlying soft tissues appear unremarkable. IMPRESSION: No acute cardiopulmonary process is seen. Mild elevation of the left hemidiaphragm noted. Dictated by: Andi Suarez M.D. on 12/12/2022 at 20:36 Approved by: Andi Suarez M.D. on 12/12/2022 at 20:37
[2022-12-12 21:04] LABS: INR 1.1 (0.9-1.3); Prothrombin Time 13.1 SECONDS (10.1-12.7)
[2022-12-12 21:06] LABS: PTT Partial Thromboplastin Tim 29 SECONDS (26-36)
[2022-12-12 21:07] LABS: Add Manual Diff / Slide Review NO; Basophils Absolute Auto 100 /uL (0-100); Basophils Percent Auto 0.9 % (0-2); Eosinophils Absolute Auto 100 /uL (0-450); Eosinophils Percent Auto 0.5 % (2-4); Hematocrit 42.2 % (41-53); Hemoglobin 14.8 g/dL (13.5-17.5); Lymphocytes Absolute Auto 1200 /uL (1100-4500); Lymphocytes Percent Auto 10.5 % (25-40); Mean Corpuscular Hemoglobin 32.5 PG (26-34); Mean Corpuscular Volume 92.8 fL (80-100); Monocytes Absolute Auto 900 /uL (0-900); Monocytes Percent Auto 7.5 % (3-14); Neutrophils Absolute Auto 9400 /uL (1500-7000); Neutrophils Percent Auto 80.6 % (50-75); Platelet Count 356 X10^3/uL (150-400); Red Blood Cell Count 4.55 X10^6/uL (4.5-5.9); Red Cell Distribution Width 15.1 % (11.6-14.8); White Blood Cell Count 11.7 X10^3/uL (4.5-11.0)
[2022-12-12 21:08] LABS: Alanine Aminotransferase 15 IU/L (<50); Alkaline Phosphatase 129 U/L (38-126); Aspartate Aminotransferase 24 IU/L (17-59); BUN Creatinine Ratio 15.4 (6-22); Bilirubin Total 1.8 mg/dL (0.2-1.3); Blood Urea Nitrogen 18 mg/dL (9-20); Calcium 8.8 mg/dL (8.4-10.2); Carbon Dioxide 27 mmol/L (22-32); Chloride 93 mmol/L (98-107); Creatine Kinase < 20 U/L (55-170); Estimated Glomerular Filt Rate > 60 mL/min (>60); Globulin 3.7 g/dL (1.7-4.1); Glucose 132 mg/dL (80-110); HEMOLYSIS 22 (0-50); Potassium 3.3 mmol/L (3.4-5.1); Sodium 133 mmol/L (137-145); Total Protein 7.7 g/dL (6.3-8.2)
[2022-12-12 21:09] LABS: Albumin Globulin Ratio 1.1 (1.0-2.8); Lipase 34 U/L (23-300)
[2022-12-12 21:20] LABS: NT-proBNP (BNP-Adult 18+) 99 pg/mL (<125); Troponin I < 0.012 ng/mL (0.01-0.034)
--- NOTE | 2022-12-12 22:08 | DI.US.S_ITS ---
PROCEDURE: US PERIP VENOUS LOW EXTREM BI INDICATIONS: EDEMA TECHNIQUE: Real-time imaging, as well as color and pulse Doppler interrogation, were performed of the deep veins of both legs from the inguinal ligament to the popliteal fossa, with documentation of the visualized calf veins. COMPARISON: [facility], US, US [facility] VENOUS LOW EXTREM BI, 10/16/2022, 20:38. [facility], CR, XR CHEST 1V, 12/12/2022, 20:56. FINDINGS: Right: The common femoral, femoral, popliteal, and the visualized calf veins are normally compressible, and free of intraluminal thrombus. Color and pulse Doppler demonstrate normal phasic intravascular flow. There is normal augmentation response to distal compression maneuver. Left: The common femoral, femoral, popliteal, and the visualized calf veins are normally compressible, and free of intraluminal thrombus. Color and pulse Doppler demonstrate normal phasic intravascular flow. There is normal augmentation response to distal compression maneuver. IMPRESSION: No findings of deep venous thrombosis in either lower extremity. Dictated by: Andi Suarez M.D. on 12/12/2022 at 22:24 Approved by: Andi Suarez M.D. on 12/12/2022 at 22:24
--- NOTE | 2022-12-12 22:08 | ED.GENADULT ---
HPI - General Adult General Chief complaint: Shortness of Breath/Dyspnea Stated complaint: Ankle swelling Time Seen by Provider: 12/12/22 22:01 Source: patient and family Mode of arrival: Ambulatory History of Present Illness HPI narrative: Patient is a 67-year-old male. He has a history of DVT and PE. He is not currently on anticoagulation. He also smokes. Has had a history of lower extremity swelling. He is here for evaluation of swelling to bilateral lower extremities with the left being worse than right. He is having some shortness of breath but he states this is baseline for him. He denies any fevers. He does cough but states this is because of his smoking. He recently had a extended car ride. He does have Lasix at home. He takes 40 mg twice a day of Lasix. He stated that when this has happened to him in the past he was given an IV dose of Lasix and the swelling vastly improved. Related Data Previous Rx's Medication Instructions Recorded albuterol sulfate 90 mcg/actuation 2 puff inhalation Q4-6H PRN 01/16/21 aerosol inhaler shortness of breath or wheezing #8.5 grams apixaban 5 mg (74 tabs) tablets in See Rx Instructions PO .COMPLEX 10/17/22 a dose pack #74 ea apixaban 5 mg tablet 5 mg PO BID 3 months #180 tabs 10/22/22 furosemide 20 mg tablet (Lasix) 20 mg PO BID #30 tabs 10/22/22 furosemide 40 mg tablet (Lasix) 40 mg PO BID #60 tabs 10/26/22 doxycycline hyclate 100 mg tablet 100 mg PO BID #20 tabs 11/17/22 prednisone 10 mg tablet See Rx Instructions .Route 11/17/22 .COMPLEX #30 tabs furosemide 20 mg tablet (Lasix) 60 mg PO BID #60 tabs 12/13/22 Allergies Allergy/AdvReac Type Severity Reaction Status Date / Time Penicillins Allergy Verified 11/17/22 02:22 Review of Systems Constitutional Constitutional: Reports system reviewed and no additional complaints, except as documented Cardiovascular Cardiovascular: Reports system reviewed and no additional complaints, except as documented Respiratory Respiratory: Reports system reviewed and no additional complaints, except as documented Gastrointestinal Gastrointestinal: Reports system reviewed and no additional complaints, except as documented Musculoskeletal Musculoskeletal: Reports system reviewed and no additional complaints, except as documented Integumentary/Breasts Skin/Breast: Reports system reviewed and no additional complaints, except as documented Hematologic/Lymphatic On Anticoagulants: No Patient History Medical History Tobacco abuse Surgical History History of bilateral hip replacements Family History Mother Cancer Father Heart attack Social History household members: spouse Smoking Status: Current every day smoker alcohol intake: current substance use type: marijuana Smoking Status: Current every day smoker alcohol intake frequency: 0-2 drinks per day Alcohol type: beer Substance Use Type: does not use and marijuana Exam Initial Vital Signs Initial Vital Signs: Vital Signs Temperature 98.6 F 12/12/22 19:52 Pulse Rate 112 H 12/12/22 19:52 Respiratory Rate 24 12/12/22 19:52 Blood Pressure 136/63 12/12/22 19:52 Pulse Oximetry 97 12/12/22 19:52 Oxygen Delivery Method Room Air 12/12/22 19:52 HENMT Head: normal to inspection and normocephalic Resp Effort & Inspection: not labored and tachypneic Auscultation: clear to auscultation bilaterally Cardio Rate: regular rate Rhythm: regular rhythm Skin General: no rashes or lesions noted Neuro General: patient alert, patient awake and moves all extremities Extrem General: edema Course Orders Ordered: ED Orders 12/12/22 20:10 BNP [NT-proBNP (BNP-Adult 18+)] Stat Complete Blood Count AUTO DIFF Stat Comprehensive Metabolic Panel Stat Lipase Stat Magnesium Stat PTT Partial Thromboplastin Clifford Stat Prothrombin Time INR Stat Troponin & CK Cardiac Panel Stat 12/12/22 20:45 XR chest 1V Stat EKG-12 Lead Stat 12/12/22 22:08 US periph venous low extrem bi Stat Discontinued Medications Furosemide 60 mg/ Sodium (Chloride) 56 mls @ 112 mls/hr IV NOW ONE Stop: 12/12/22 22:08 Last Infusion: 12/12/22 22:58 Dose: 0 mls/hr Documented By: Admin: 12/12/22 22:14 Dose: 112 mls/hr Documented By: SPF Vital Signs Vital signs: Vital Signs - 8 hr 12/12/22 22:10 12/12/22 21:47 12/12/22 22:00 Pulse Rate 90 Respiratory Rate 18 22 Blood Pressure 129/60 Pulse Oximetry 96 Oxygen Delivery Method 12/12/22 22:00 12/12/22 22:30 12/12/22 22:30 Pulse Rate 92 H 85 Respiratory Rate 18 22 Blood Pressure 119/57 L Pulse Oximetry 96 94 Oxygen Delivery Method Room Air 12/12/22 23:00 12/12/22 23:00 12/12/22 23:30 Pulse Rate 91 H 101 H Respiratory Rate 23 35 H Blood Pressure 109/56 L Pulse Oximetry 96 95 Oxygen Delivery Method 12/12/22 23:31 12/12/22 23:31 12/13/22 00:00 Pulse Rate 95 H Respiratory Rate 28 H Blood Pressure 184/73 H 145/61 H Pulse Oximetry 95 Oxygen Delivery Method Room Air 12/13/22 00:00 Pulse Rate 96 H Respiratory Rate 18 Blood Pressure Pulse Oximetry 95 Oxygen Delivery Method Medical Decision Making Medical Records Medical records reviewed: Yes I reviewed the patient's medical records. Lab Data Lab results reviewed: Yes I reviewed the patient's lab results. 12/12/22 20:10 12/12/22 20:10 Labs: Lab Results 12/12/22 12/12/22 12/12/22 Range/Units 20:10 20:10 20:10 WBC 11.7 H (4.5-11.0) X10^3/uL RBC 4.55 (4.5-5.9) X10^6/uL Hgb 14.8 (13.5-17.5) g/dL Hct 42.2 (41-53) % MCV 92.8 (80-100) fL MCH 32.5 (26-34) PG MCHC 35.0 (30-36) % RDW 15.1 H (11.6-14.8) % Plt Count 356 (150-400) X10^3/uL Neut % (Auto) 80.6 H (50-75) % Lymph % (Auto) 10.5 L (25-40) % Bracken % (Auto) 7.5 (3-14) % Eos % (Auto) 0.5 L (2-4) % Baso % (Auto) 0.9 (0-2) % Neut # (Auto) 9400 H (2828-2878) /uL Lymph # (Auto) 1200 (5557-5270) /uL Bracken # (Auto) 900 (0-900) /uL Eos # (Auto) 100 (0-450) /uL Baso # (Auto) 100 (0-100) /uL PT 13.1 H (10.1-12.7) SECONDS INR 1.1 (0.9-1.3) APTT 29 (26-36) SECONDS Sodium 133 L (137-145) mmol/L Potassium 3.3 L (3.4-5.1) mmol/L Chloride 93 L (98-107) mmol/L Carbon Dioxide 27 (22-32) mmol/L BUN 18 (9-20) mg/dL Creatinine 1.17 (0.66-1.25) mg/dL Estimated GFR > 60 (>60) mL/min BUN/Creatinine Ratio 15.4 (6-22) Glucose 132 H (80-110) mg/dL Calcium 8.8 (8.4-10.2) mg/dL Magnesium 2.0 (1.6-2.3) mg/dL Total Bilirubin 1.8 H (0.2-1.3) mg/dL AST 24 (17-59) IU/L ALT 15 (<50) IU/L Alkaline Phosphatase 129 H (38-126) U/L Total Creatine Kinase < 20 L (55-170) U/L Troponin I < 0.012 (0.01-0.034) ng/mL NT-Pro-B Natriuret Pep 99 (<125) pg/mL Total Protein 7.7 (6.3-8.2) g/dL Albumin 4.0 (3.5-5.0) g/dL Globulin 3.7 (1.7-4.1) g/dL Albumin/Globulin Ratio 1.1 (1.0-2.8) Lipase 34 (23-300) U/L Imaging Data Chest x-ray: Radiologist's Impression: PROCEDURE:? XR CHEST 1V ? INDICATIONS:? Chest pain. ? TECHNIQUE:? One view of the chest was acquired.? ? COMPARISON:? [facility], CT, CT ANGIO CHEST PE PROTOCOL, 10/22/2022, 13:43.? [facility], CR, XR CHEST 1V, 11/17/2022, 2:55. ? FINDINGS:? ? Surgical changes and devices:? None.? ? Lungs and pleura:? Lungs are clear.? No pleural effusions or pneumothorax.? The left hemidiaphragm can be seen. ? Mediastinum:? Mediastinal contours appear normal.? Heart size is normal.? Atherosclerotic calcification of the aortic arch is noted.? ? Bones and chest wall:? No suspicious bony lesions.? Overlying soft tissues appear unremarkable.? ? ? IMPRESSION:? ? No acute cardiopulmonary process is seen.? ? Mild elevation of the left hemidiaphragm noted. US - DVT: Radiologist's Impression: PROCEDURE:? US PERIPH VENOUS LOW EXTREM BI ? INDICATIONS:? EDEMA ? TECHNIQUE:? Real-time imaging, as well as color and pulse Doppler interrogation, were performed of the deep veins of both legs from the inguinal ligament to the popliteal fossa, with documentation of the visualized calf veins.? ? COMPARISON:? [facility], , US PERIP VENOUS LOW EXTREM BI, 10/16/2022, 20:38.? [facility], CR, XR CHEST 1V, 12/12/2022, 20:56. ? FINDINGS:? ? Right: The common femoral, femoral, popliteal, and the visualized calf veins are normally compressible, and free of intraluminal thrombus.? Color and pulse Doppler demonstrate normal phasic intravascular flow.? There is normal augmentation response to distal compression maneuver.? ? Left: The common femoral, femoral, popliteal, and the visualized calf veins are normally compressible, and free of intraluminal thrombus.? Color and pulse Doppler demonstrate normal phasic intravascular flow.? There is normal augmentation response to distal compression maneuver.? ? ? IMPRESSION:? No findings of deep venous thrombosis in either lower extremity. ECG Data Attestation: I personally reviewed and interpreted this ECG as follows: Interpretation: Sinus rhythm Ventricular rate 91 Normal axis Normal QRS Normal QTC No ST T wave changes MDM Narrative Medical decision making narrative: Patient does have bilateral lower extremity with left being greater than right. Ultrasound shows no signs of DVT. He is having some shortness of breath but he states this is baseline for him because of his coughing. He stated that his doctor told him that he has ?black lungs? and that he should quit smoking but he is yet to do so. He gets short of breath when he coughs. Chest x-ray not consistent with pulmonary edema. He reports no history of CHF. He was given Lasix here in the emergency department and did diurese. He stated that this has helped him in the past. Will have him increase his Lasix to 60 mg twice a day. He knows that he can decrease this once the swelling improves. This is most likely because of his immobility because of his car trip recently. Will discharge patient home with strict return precautions. Both he and his expressed understanding and agreement with plan. Discharge Plan Departure Patient Disposition: Home Clinical Impression: Lower extremity edema Instructions: DI for Peripheral Edema -- Bilateral Activity Restrictions/Additional Instructions: I recommend that you continue to take all of your medications as directed however I would increase your Lasix from 40 mg twice a day to 60 mg twice a day. A refill this medication was sent to [email or web address] per your request. Contact your primary doctor for follow-up. Return to the emergency department for new or worsening symptoms. Prescriptions: New furosemide [Lasix] 20 mg tablet 60 mg PO BID Qty: 60 0RF No Action albuterol sulfate 90 mcg/actuation HFA aerosol inhaler 2 puff inhalation Q4-6H PRN (Reason: shortness of breath or wheezing) Qty: 8.5 0RF Rx Instructions: please dispense with spacer prednisone 10 mg tablet See Rx Instructions .ROUTE .COMPLEX Qty: 30 0RF Rx Instructions: Day 1,2,3: 40mg PO Daily Day 4,5,6: 30mg PO Daily Day 7,8,9: 20mg PO Daily Day 10,11,12: 10mg PO Daily #30 doxycycline hyclate 100 mg tablet 100 mg PO BID Qty: 20 0RF apixaban 5 mg (74 tabs) tablets,dose pack See Rx Instructions .ROUTE .COMPLEX Qty: 74 0RF Rx Instructions: orally per package direction furosemide [Lasix] 20 mg tablet 20 mg PO BID Qty: 30 0RF apixaban 5 mg tablet 5 mg PO BID 90 Days Qty: 180 0RF Rx Instructions: Please begin taking on 10/29, after you finish the course of 10mg twice a day furosemide [Lasix] 40 mg tablet 40 mg PO BID Qty: 60 0RF Stand Alone Forms: Patient Portal/API
[2022-12-12] MEDS: FUROSEMIDE 60 MG in SODIUM CHLORIDE 0.9% 50 ML 112 MG IV (22:14)
[2022-12-13] VITALS: BP 145/61; PULSE 96; RESP 18; O2SAT 95
== END 2022-12-13 00:14 | disposition home or self-care (01) ==
PROVIDERS: Emergency Provider Emergency Medicine
DX: R60.0 Localized edema (principal); R07.9 Chest pain, unspecified; Z79.01 Long term (current) use of anticoagulants; R06.02 Shortness of breath
CPT/HCPCS: 36415; 71045; 80053; 82550; 83690; 83735; 83880; 84484; 85025; 85610; 85730; 93005; 93010; 93970; 96365; 99284; J1940

== ENCOUNTER 2023-01-18 16:38 | Emergency (ER) | payer OTHER, SELFPAY ==
[2023-01-18] VITALS (11 sets, daily range): BP systolic 132–169; BP diastolic 60–81; PULSE 64–93; RESP 16–35; TEMP 36.7; O2SAT 96–99; BMI 30.1
--- NOTE | 2023-01-18 16:49 | ED_ITS ---
HPI - SOB/Dyspnea <Analia Armas, - Last Filed: 01/19/23 07:11> General Chief Complaint: Shortness of Breath/Dyspnea Stated Complaint: SOB copd Time Seen by Provider: 01/18/23 16:46 Source: patient Limitations: no limitations History of Present Illness HPI Narrative: 67-year-old male with history of chronic tobacco use, COPD on Spiriva daily with history of pulmonary emboli that had resolved or mostly resolved in October of 2022 on CTA. Patient is not currently anticoagulated he never completed his treatment. He has had increasing shortness of breath, orthopnea, productive sputum with white discoloration no hemoptysis. No fevers or chills. Patient notes shortness of breath increased with exertion. But also even at rest. He denies any nasal congestion. Patient denies any chest pain or pressure. He does feel tightness chest. He denies nausea or vomiting, no diarrhea constipation, denies any dysuria urgency or frequency. No new swelling in extremities. Patient has had prior orthopedic surgeries remotely. No prior lung or pulmonary surgeries. States he is allergic to penicillins. Does smoke about a 3rd pack daily, drinks a beer daily, denies IV or recreational drugs. No primary care locally. Patient and family moved from [place], [place] several months ago and he is not established. He notes at that time that he lost his nebulizer in the move, he has been using albuterol inhaler but ran out because they can not refill his prescription from [place]. They also note he is about to run out of his Symbicort but does use it twice daily. Patient is accompanied by family. Related Data Previous Rx's Medication Instructions Recorded albuterol sulfate 90 mcg/actuation 2 puff inhalation Q4-6H PRN 01/16/21 aerosol inhaler shortness of breath or wheezing #8.5 grams apixaban 5 mg (74 tabs) tablets in See Rx Instructions PO .COMPLEX 10/17/22 a dose pack #74 ea apixaban 5 mg tablet 5 mg PO BID 3 months #180 tabs 10/22/22 furosemide 20 mg tablet (Lasix) 20 mg PO BID #30 tabs 10/22/22 furosemide 40 mg tablet (Lasix) 40 mg PO BID #60 tabs 10/26/22 doxycycline hyclate 100 mg tablet 100 mg PO BID #20 tabs 11/17/22 prednisone 10 mg tablet See Rx Instructions .Route 11/17/22 .COMPLEX #30 tabs furosemide 20 mg tablet (Lasix) 60 mg (3 x 20 mg) PO BID #60 tabs 12/13/22 budesonide-formoterol HFA 160 2 puff inhalation BID #10.2 grams 01/18/23 mcg-4.5 mcg/actuation aerosol inhaler (Symbicort) ipratropium 0.5 mg-albuterol 3 mg 3 ml inhalation Q6H PRN shortness 01/18/23 (2.5 mg base)/3 mL nebulization of breath or wheezing #180 mL soln nebulizer accessories #1 ea 01/18/23 nebulizer and compressor #1 ea 01/18/23 prednisone 20 mg tablet 40 mg (2 x 20 mg) PO DAILY #10 tabs 01/18/23 Allergies Allergy/AdvReac Type Severity Reaction Status Date / Time Penicillins Allergy Verified 11/17/22 02:22 Review of Systems <Analia Armas DO - Last Filed: 01/19/23 07:11> Review of Systems ROS Unobtainable: All systems reviewed & are unremarkable except as noted in HPI and below Patient History <Analia Armas DO - Last Filed: 01/19/23 07:11> Medical History Tobacco abuse Surgical History History of bilateral hip replacements Family History Mother Cancer Father Heart attack Social History household members: spouse Smoking Status: Current every day smoker alcohol intake: current substance use type: marijuana Smoking Status: Current every day smoker alcohol intake frequency: 0-2 drinks per day Alcohol type: beer Substance Use Type: does not use and marijuana Exam <DO Azra Evans Last Filed: 01/19/23 07:11> Narrative Exam Narrative: GEN: Male alert and oriented x 3, patient appears to be in moderate distress. HEENT: Atraumatic, pupils are equal round reactive to light, extraocular movements are intact, nares are clear, there is no conjunctival pallor. Throat is clear without any exudates, erythema, tonsillar enlargement or uvular deviation HEART: Tachycardic but regular rate and rhythm without murmur, clicks, rubs. No edema bilateral lower extremities. LUNGS:Lungs has bilateral expiratory wheezes throughout the lungs heard best at the bases, no rales, crackles, chest moves symmetrically, positive for tachypnea. Patient feels most comfortable upright. Pursed lipped breathing. Patient is able to speak in 4-6 word sentences. ABD:bowel sounds normal, soft, non-tender, no guarding, rebound, rigidity, no masses noted, no hepatosplenomegaly :No CVA tenderness MSCL: Non-tender, no muscle atrophy, muscles strength 5/5 upper and lower extremities, full range of motion, normal gait NEURO:CN 2-12 intact, sensation normal. SKIN: No rash, erythema or other skin changes. Initial Vital Signs Initial Vital Signs: Vital Signs Temperature 98.0 F 01/18/23 16:43 Pulse Rate 93 H 01/18/23 16:43 Respiratory Rate 35 H 01/18/23 16:43 Blood Pressure 169/81 H 01/18/23 16:43 Pulse Oximetry 98 01/18/23 16:43 Oxygen Delivery Method Room Air 01/18/23 16:43 <Mi Luna MD - Last Filed: 01/18/23 20:15> Initial Vital Signs Initial Vital Signs: Vital Signs Temperature 98.0 F 01/18/23 16:43 Pulse Rate 93 H 01/18/23 16:43 Respiratory Rate 35 H 01/18/23 16:43 Blood Pressure 169/81 H 01/18/23 16:43 Pulse Oximetry 98 01/18/23 16:43 Oxygen Delivery Method Room Air 01/18/23 16:43 Course <Analia Armas DO - Last Filed: 01/19/23 07:11> Orders Ordered: Discontinued Medications Albuterol (Albuterol 2.5 Mg/3 Ml Neb (Adult)) 10 mg INH NOW ONE Stop: 01/18/23 17:01 Last Admin: 01/18/23 18:04 Dose: 10 mg Documented By: SAT Albuterol/Ipratropium (Albuterol/Ipratropium 3 Ml Ampul) 3 ml INH Q1H PRN PRN Reason: Shortness Of Breath Last Admin: 01/18/23 17:20 Dose: 3 ml Documented By: SAT Albuterol/Ipratropium (Albuterol/Ipratropium 3 Ml Ampul) 3 ml INH NOW ONE Stop: 01/18/23 17:01 Last Admin: 01/18/23 18:02 Dose: Not Given Documented By: SAT Methylprednisolone (Methylprednisolone 125 Mg/2 Ml Vial) 125 mg IV NOW ONE Stop: 01/18/23 17:01 Last Admin: 01/18/23 17:29 Dose: 125 mg Documented By: RB Vital Signs Vital signs: Vital Signs - 8 hr 01/18/23 16:43 01/18/23 16:49 01/18/23 17:00 Temperature 98.0 F Pulse Rate 93 H 86 Respiratory Rate 35 H 32 H Blood Pressure 169/81 H 145/67 H Pulse Oximetry 98 98 Oxygen Delivery Method Room Air Oxygen Flow Rate 01/18/23 17:00 01/18/23 17:19 01/18/23 17:30 Temperature Pulse Rate 76 74 Respiratory Rate 26 H 18 Blood Pressure 145/67 H Pulse Oximetry 98 98 Oxygen Delivery Method Nasal Cannula Oxygen Flow Rate 1 01/18/23 17:30 01/18/23 18:17 01/18/23 18:18 Temperature Pulse Rate 68 67 Respiratory Rate 24 16 Blood Pressure 151/79 H Pulse Oximetry 96 98 Oxygen Delivery Method Oxygen Flow Rate 01/18/23 18:18 01/18/23 18:30 01/18/23 18:30 Temperature Pulse Rate 65 64 Respiratory Rate 22 21 Blood Pressure 132/64 Pulse Oximetry 99 98 Oxygen Delivery Method Oxygen Flow Rate 01/18/23 19:00 01/18/23 19:00 01/18/23 19:30 Temperature Pulse Rate 67 Respiratory Rate 24 Blood Pressure 135/60 136/65 Pulse Oximetry 99 Oxygen Delivery Method Oxygen Flow Rate 01/18/23 19:30 Temperature Pulse Rate 74 Respiratory Rate 28 H Blood Pressure Pulse Oximetry 97 Oxygen Delivery Method Oxygen Flow Rate <Mi Luna MD - Last Filed: 01/18/23 20:15> Orders Ordered: Discontinued Medications Albuterol (Albuterol 2.5 Mg/3 Ml Neb (Adult)) 10 mg INH NOW ONE Stop: 01/18/23 17:01 Last Admin: 01/18/23 18:04 Dose: 10 mg Documented By: SAT Albuterol/Ipratropium (Albuterol/Ipratropium 3 Ml Ampul) 3 ml INH Q1H PRN PRN Reason: Shortness Of Breath Last Admin: 01/18/23 17:20 Dose: 3 ml Documented By: SAT Albuterol/Ipratropium (Albuterol/Ipratropium 3 Ml Ampul) 3 ml INH NOW ONE Stop: 01/18/23 17:01 Last Admin: 01/18/23 18:02 Dose: Not Given Documented By: SAT Methylprednisolone (Methylprednisolone 125 Mg/2 Ml Vial) 125 mg IV NOW ONE Stop: 01/18/23 17:01 Last Admin: 01/18/23 17:29 Dose: 125 mg Documented By: RB Vital Signs Vital signs: Vital Signs - 8 hr 01/18/23 16:43 01/18/23 16:49 01/18/23 17:00 Temperature 98.0 F Pulse Rate 93 H 86 Respiratory Rate 35 H 32 H Blood Pressure 169/81 H 145/67 H Pulse Oximetry 98 98 Oxygen Delivery Method Room Air Oxygen Flow Rate 01/18/23 17:00 01/18/23 17:19 01/18/23 17:30 Temperature Pulse Rate 76 74 Respiratory Rate 26 H 18 Blood Pressure 145/67 H Pulse Oximetry 98 98 Oxygen Delivery Method Nasal Cannula Oxygen Flow Rate 1 01/18/23 17:30 01/18/23 18:17 01/18/23 18:18 Temperature Pulse Rate 68 67 Respiratory Rate 24 16 Blood Pressure 151/79 H Pulse Oximetry 96 98 Oxygen Delivery Method Oxygen Flow Rate 01/18/23 18:18 01/18/23 18:30 01/18/23 18:30 Temperature Pulse Rate 65 64 Respiratory Rate 22 21 Blood Pressure 132/64 Pulse Oximetry 99 98 Oxygen Delivery Method Oxygen Flow Rate 01/18/23 19:00 01/18/23 19:00 01/18/23 19:30 Temperature Pulse Rate 67 Respiratory Rate 24 Blood Pressure 135/60 136/65 Pulse Oximetry 99 Oxygen Delivery Method Oxygen Flow Rate 01/18/23 19:30 Temperature Pulse Rate 74 Respiratory Rate 28 H Blood Pressure Pulse Oximetry 97 Oxygen Delivery Method Oxygen Flow Rate MDM - SOB/Dyspnea <Analia Armas DO - Last Filed: 01/19/23 07:11> Lab Data 01/18/23 16:50 01/18/23 16:50 Labs: Lab Results 01/18/23 01/18/23 01/18/23 Range/Units 16:50 16:55 17:05 WBC 8.0 (4.5-11.0) X10^3/uL RBC 4.68 (4.5-5.9) X10^6/uL Hgb 15.4 (13.5-17.5) g/dL Hct 43.7 (41-53) % MCV 93.3 (80-100) fL MCH 32.8 (26-34) PG MCHC 35.2 (30-36) % RDW 14.4 (11.6-14.8) % Plt Count 288 (150-400) X10^3/uL Neut % (Auto) Not Reportable Lymph % (Auto) Not Reportable [place] % (Auto) Not Reportable Eos % (Auto) Not Reportable Baso % (Auto) Not Reportable Lymph # (Auto) Not Reportable [place] # (Auto) Not Reportable Baso # (Auto) Not Reportable Total Counted 100 Seg Neutrophils % 60.0 (38-70) % Band Neutrophils % 5.0 (3-7) % Lymphocytes % (Manual) 25.0 (25-45) % Monocytes % (Manual) 6.0 (2-11) % Eosinophils % (Manual) 1.0 L (2-4) % Basophils % (Manual) 1.0 (0-1) % Metamyelocytes % 2.0 H (-0) % Neutrophils # (Manual) 5200 (0158-9692) /uL RBC Morphology Normal morphology PT 11.4 (10.1-12.7) SECONDS INR 1.0 (0.9-1.3) D-Dimer 789 H (<500) ng/ml Sodium 136 L (137-145) mmol/L Potassium 4.4 (3.4-5.1) mmol/L Chloride 105 (98-107) mmol/L Carbon Dioxide 25 (22-32) mmol/L BUN 13 (9-20) mg/dL Creatinine 0.86 (0.66-1.25) mg/dL Estimated GFR > 60 (>60) mL/min BUN/Creatinine Ratio 15.1 (6-22) Glucose 101 (80-110) mg/dL Lactate 1.4 (0.7-2.1) mmol/L Calcium 9.6 (8.4-10.2) mg/dL Total Bilirubin 1.3 (0.2-1.3) mg/dL AST 23 (17-59) IU/L ALT 14 (<50) IU/L Alkaline Phosphatase 117 (38-126) U/L Troponin I < 0.012 (0.01-0.034) ng/mL NT-Pro-B Natriuret Pep 77 (<125) pg/mL Total Protein 7.1 (6.3-8.2) g/dL Albumin 4.1 (3.5-5.0) g/dL Globulin 3.0 (1.7-4.1) g/dL Albumin/Globulin Ratio 1.4 (1.0-2.8) Chlamy pneumoniae PCR Not detected (Not Detect) Adenovirus (PCR) Not detected (Not Detect) B.parapertussis DNA PCR Not detected (Not Detecte) Coronavirus OC43 (PCR) Not detected (Not Detect) Coronavirus HKU1 (PCR) Not detected (Not Detect) Coronavirus 229E (PCR) Not detected (Not Detect) SARS-CoV-2 (PCR) Not detected (Not Detecte) Coronavirus NL63 (PCR) Not detected (Not Detect) Human Metapneumovir PCR Not detected (Not Detect) Influenza Type A (PCR) Not detected (Not Detect) Influenza Type B (PCR) Not detected (Not Detect) M. pneumoniae (PCR) Not detected (Not Detect) Parainfluenza 1 (PCR) Not detected (Not Detect) Parainfluenza 2 (PCR) Not detected (Not Detect) Parainfluenza 3 (PCR) Not detected (Not Detect) Parainfluenza 4 (PCR) Not detected (Not Detect) RSV (PCR) Not detected (Not Detect) Entero/Rhino (PCR) Not detected (Not Detect) ECG Data Attestation: I personally reviewed and interpreted this ECG as follows: Prior ECG tracings: available for review Interpretation: Sinus rhythm rate of 74 ID 122 QRS 80 QTC of 410. No acute ST elevation depression noted. Patient has prior from 12/12/2022 with no acute changes noted. MDM Narrative Medical decision making narrative: 67-year-old male with history of chronic tobacco abuse who is wheezy on examination tachypneic and seems to be having COPD exacerbation, he has been using his Symbicort but about to run out, he is run out of his albuterol. Did have a CT positive for left pulmonary emboli in October 2022 and 10 days later had repeat CT angio which showed almost complete resolution. Patient did not take medications regularly for this. Labs including CBC, CMP, troponin and BNP were obtained to evaluate for fluid overload as patient has had increasing orthopnea over the last several weeks to months. Chest x-ray and D-dimer. CBC shows normal white count, hemoglobin platelets has 2% metamyelocytes, no bands or segmented neutrophils. INR is normal, D-dimer 789 when age adjusted is still positive. Sodium is 136 with normal potassium, BUN, electrolytes, normal CO2, glucose is 101 with normal LFTs, troponin and negative BNP. Chest x-ray shows no acute change, stable mild elevation of left diaphragm. Patient received DuoNeb and Solu-medrol patient is feeling improved. Wheeze is improved tachypnea is improved as well. With patient's history of pulmonary emboli, dimer was obtained was positive patient feels much improved but would obtain CT angio and patient is agreeable. Patient signed out to Dr. Luna while awaiting CT Angio chest and respiratory panel. <Mi Luna MD - Last Filed: 01/18/23 20:15> Lab Data Labs: Lab Results 01/18/23 01/18/23 01/18/23 Range/Units 16:50 16:55 17:05 WBC 8.0 (4.5-11.0) X10^3/uL RBC 4.68 (4.5-5.9) X10^6/uL Hgb 15.4 (13.5-17.5) g/dL Hct 43.7 (41-53) % MCV 93.3 (80-100) fL MCH 32.8 (26-34) PG MCHC 35.2 (30-36) % RDW 14.4 (11.6-14.8) % Plt Count 288 (150-400) X10^3/uL Neut % (Auto) Not Reportable Lymph % (Auto) Not Reportable [place] % (Auto) Not Reportable Eos % (Auto) Not Reportable Baso % (Auto) Not Reportable Lymph # (Auto) Not Reportable [place] # (Auto) Not Reportable Baso # (Auto) Not Reportable Total Counted 100 Seg Neutrophils % 60.0 (38-70) % Band Neutrophils % 5.0 (3-7) % Lymphocytes % (Manual) 25.0 (25-45) % Monocytes % (Manual) 6.0 (2-11) % Eosinophils % (Manual) 1.0 L (2-4) % Basophils % (Manual) 1.0 (0-1) % Metamyelocytes % 2.0 H (-0) % Neutrophils # (Manual) 5200 (8877-4042) /uL RBC Morphology Normal morphology PT 11.4 (10.1-12.7) SECONDS INR 1.0 (0.9-1.3) D-Dimer 789 H (<500) ng/ml Sodium 136 L (137-145) mmol/L Potassium 4.4 (3.4-5.1) mmol/L Chloride 105 (98-107) mmol/L Carbon Dioxide 25 (22-32) mmol/L BUN 13 (9-20) mg/dL Creatinine 0.86 (0.66-1.25) mg/dL Estimated GFR > 60 (>60) mL/min BUN/Creatinine Ratio 15.1 (6-22) Glucose 101 (80-110) mg/dL Lactate 1.4 (0.7-2.1) mmol/L Calcium 9.6 (8.4-10.2) mg/dL Total Bilirubin 1.3 (0.2-1.3) mg/dL AST 23 (17-59) IU/L ALT 14 (<50) IU/L Alkaline Phosphatase 117 (38-126) U/L Troponin I < 0.012 (0.01-0.034) ng/mL NT-Pro-B Natriuret Pep 77 (<125) pg/mL Total Protein 7.1 (6.3-8.2) g/dL Albumin 4.1 (3.5-5.0) g/dL Globulin 3.0 (1.7-4.1) g/dL Albumin/Globulin Ratio 1.4 (1.0-2.8) Chlamy pneumoniae PCR Not detected (Not Detect) Adenovirus (PCR) Not detected (Not Detect) B.parapertussis DNA PCR Not detected (Not Detecte) Coronavirus OC43 (PCR) Not detected (Not Detect) Coronavirus HKU1 (PCR) Not detected (Not Detect) Coronavirus 229E (PCR) Not detected (Not Detect) SARS-CoV-2 (PCR) Not detected (Not Detecte) Coronavirus NL63 (PCR) Not detected (Not Detect) Human Metapneumovir PCR Not detected (Not Detect) Influenza Type A (PCR) Not detected (Not Detect) Influenza Type B (PCR) Not detected (Not Detect) M. pneumoniae (PCR) Not detected (Not Detect) Parainfluenza 1 (PCR) Not detected (Not Detect) Parainfluenza 2 (PCR) Not detected (Not Detect) Parainfluenza 3 (PCR) Not detected (Not Detect) Parainfluenza 4 (PCR) Not detected (Not Detect) RSV (PCR) Not detected (Not Detect) Entero/Rhino (PCR) Not detected (Not Detect) MDM Narrative Medical decision making narrative: 67-year-old male with history of chronic tobacco abuse who is wheezy on examination tachypneic and seems to be having COPD exacerbation, he has been using his Symbicort but about to run out, he is run out of his albuterol. Did have a CT positive for left pulmonary emboli in October 2022 and 10 days later had repeat CT angio which showed almost complete resolution. Patient did not take medications regularly for this. Labs including CBC, CMP, troponin and BNP were obtained to evaluate for fluid overload as patient has had increasing orthopnea over the last several weeks to months. Chest x-ray and D-dimer. CBC shows normal white count, hemoglobin platelets has 2% metamyelocytes, no bands or segmented neutrophils. INR is normal, D-dimer 789 when age adjusted is still positive. Sodium is 136 with normal potassium, BUN, electrolytes, normal CO2, glucose is 101 with normal LFTs, troponin and negative BNP. Chest x-ray shows no acute change, stable mild elevation of left diaphragm. Patient received DuoNeb and Solu-medrol patient is feeling improved. Wheeze is improved tachypnea is improved as well. With patient's history of pulmonary emboli, dimer was obtained was positive patient feels much improved but would obtain CT angio and patient is agreeable. Patient signed out to Dr. Luna while awaiting CT Angio chest and respiratory panel. 8pm patient seen and examined independently. Chart is reviewed. CT angiogram shows no large or central pulmonary emboli. There is a stable right upper lobe spiculated 11 mm area. Discussion: Patient has overall decreased breath sounds consistent with severe COPD, he is has scattered mild wheeze, sats are 96% on room air and he is able to speak in full sentences. There does not appear to be any evidence of acute pneumonia and this does look like a COPD exacerbation in the setting of running out of most of his medications and unable to get them refilled as they [place]. Will have him complete a prednisone taper, given prescriptions for a nebulizer machine DuoNeb solution Symbicort inhaler along with refills until they are able to establish care with a primary care doctor here. Also discussed with them the spiculated right upper lobe 11 mm area and need for follow-up regarding that. He is safe for discharge Discharge Plan Departure Patient Disposition: Home Clinical Impression: Acute exacerbation of chronic obstructive pulmonary disease, Nodule of upper lobe of right lung Instructions: DI for Chronic Obstructive Pulmonary Disease Activity Restrictions/Additional Instructions: Thank you for coming in today You do not have any evidence for a repeat blood clot in your lung or bacterial pneumonia. You do have an acute exacerbation of your COPD. I want you to complete a 5 day course of prednisone, 40 mg daily I have given you a prescription for a nebulizer machine and DuoNeb medicine to use with the nebulizer. You can use this up to 4 times a day as needed for wheezing I have refilled your prescription for the Symbicort, this should be 2 puffs in the morning and 2 puffs in the evening with the spacer. If you are having additional shortness of breath or cough during the day please use your nebulizer and the DuoNeb rather than additional Symbicort Noted on this CT scan was a nodule in the upper part of your right lung. The radiologist noted that it had not changed since October however you are at very high risk for developing lung cancer in this does need additional follow-up. Please discuss this with your primary care doctor If you find that you are getting worse or develop any new symptoms, please feel free to return to the emergency department for further evaluation. Prescriptions: New prednisone 20 mg tablet 40 mg PO DAILY Qty: 10 0RF budesonide-formoterol [Symbicort] 160-4.5 mcg/actuation HFA aerosol inhaler 2 puff inhalation BID Qty: 10.2 3RF ipratropium-albuterol 0.5 mg-3 mg(2.5 mg base)/3 mL solution for nebulization 3 ml inhalation Q6H PRN (Reason: shortness of breath or wheezing) Qty: 180 2RF (DME) nebulizer and compressor Device See Rx Instructions .Route Qty: 1 0RF Rx Instructions: As directed (DME) nebulizer accessories Kit See Rx Instructions .Route Qty: 1 0RF Rx Instructions: As directed No Action albuterol sulfate 90 mcg/actuation HFA aerosol inhaler 2 puff inhalation Q4-6H PRN (Reason: shortness of breath or wheezing) Qty: 8.5 0RF Rx Instructions: please dispense with spacer prednisone 10 mg tablet See Rx Instructions .ROUTE .COMPLEX Qty: 30 0RF Rx Instructions: Day 1,2,3: 40mg PO Daily Day 4,5,6: 30mg PO Daily Day 7,8,9: 20mg PO Daily Day 10,11,12: 10mg PO Daily #30 doxycycline hyclate 100 mg tablet 100 mg PO BID Qty: 20 0RF furosemide [Lasix] 20 mg tablet 60 mg PO BID Qty: 60 0RF apixaban 5 mg (74 tabs) tablets,dose pack See Rx Instructions .ROUTE .COMPLEX Qty: 74 0RF Rx Instructions: orally per package direction furosemide [Lasix] 20 mg tablet 20 mg PO BID Qty: 30 0RF apixaban 5 mg tablet 5 mg PO BID 90 Days Qty: 180 0RF Rx Instructions: Please begin taking on 10/29, after you finish the course of 10mg twice a day furosemide [Lasix] 40 mg tablet 40 mg PO BID Qty: 60 0RF Stand Alone Forms: Patient Portal/API
--- NOTE | 2023-01-18 16:49 | DI.RAD.S_ITS ---
PROCEDURE: XR CHEST 1V INDICATIONS: Shortness of breath TECHNIQUE: One view of the chest was acquired. COMPARISON: [facility], CR, XR CHEST 1V, 11/17/2022, 2:55. [facility], CR, XR CHEST 1V, 10/26/2022, 17:40. [facility], CR, XR CHEST 1V, 12/12/2022, 20:56. FINDINGS: Surgical changes and devices: None. Lungs and pleura: An incomplete inspiratory result is noted, causing a crowded appearance to the lung markings. No focal infiltrates are seen. No pneumothorax or significant pleural effusions are seen. A small amount of elevation of the left hemidiaphragm is again seen. Mediastinum: Mediastinal contours appear normal. Heart size is normal. Bones and chest wall: No suspicious bony lesions. Age-appropriate bony degenerative changes are seen. Overlying soft tissues appear unremarkable. IMPRESSION: No acute cardiopulmonary process is seen. Stable mild elevation of the left hemidiaphragm. Dictated by: Andi Suarez M.D. on 01/18/2023 at 16:29 Approved by: Andi Suarez M.D. on 01/18/2023 at 16:32
[2023-01-18 17:08] LABS: Hematocrit 43.7 % (41-53); Hemoglobin 15.4 g/dL (13.5-17.5); Mean Corpuscular HGB Conc 35.2 % (30-36); Mean Corpuscular Hemoglobin 32.8 PG (26-34); Mean Corpuscular Volume 93.3 fL (80-100); Platelet Count 288 X10^3/uL (150-400); Red Blood Cell Count 4.68 X10^6/uL (4.5-5.9); Red Cell Distribution Width 14.4 % (11.6-14.8)
[2023-01-18 17:10] LABS: Add Manual Diff / Slide Review YES
[2023-01-18 17:11] LABS: Prothrombin Time 11.4 SECONDS (10.1-12.7)
[2023-01-18 17:14] LABS: Lactate (Lactic Acid) 1.4 mmol/L (0.7-2.1)
[2023-01-18 17:15] LABS: Alanine Aminotransferase 14 IU/L (<50); Albumin 4.1 g/dL (3.5-5.0); Albumin Globulin Ratio 1.4 (1.0-2.8); Alkaline Phosphatase 117 U/L (38-126); Aspartate Aminotransferase 23 IU/L (17-59); BUN Creatinine Ratio 15.1 (6-22); Bilirubin Total 1.3 mg/dL (0.2-1.3); Blood Urea Nitrogen 13 mg/dL (9-20); Calcium 9.6 mg/dL (8.4-10.2); Carbon Dioxide 25 mmol/L (22-32); Chloride 105 mmol/L (98-107); Estimated Glomerular Filt Rate > 60 mL/min (>60); Glucose 101 mg/dL (80-110); HEMOLYSIS 42 (0-50); Potassium 4.4 mmol/L (3.4-5.1); Sodium 136 mmol/L (137-145); Total Protein 7.1 g/dL (6.3-8.2)
[2023-01-18 17:19] LABS: D Dimer 789 ng/ml (<500)
[2023-01-18] MEDS: ALBUTEROL/IPRATROPIUM 3 ML AMPUL INH (17:20)
[2023-01-18 17:21] LABS: Neutrophils Absolute Manual 5200 /uL (3000-5900); Total Cells Counted 100
[2023-01-18 17:22] LABS: RBC Morphology Normal Morphology
[2023-01-18 17:25] LABS: NT-proBNP (BNP-Adult 18+) 77 pg/mL (<125)
[2023-01-18 17:26] LABS: Troponin I < 0.012 ng/mL (0.01-0.034)
[2023-01-18] MEDS: methylPREDNISolone 125 MG/2 ML VIAL IV (17:29)
--- NOTE | 2023-01-18 17:45 | DI.CT.S_ITS ---
PROCEDURE: CT ANGIO CHEST PE PROTOCOL INDICATIONS: shortness of breath, hx of PE on CTs october 2022, +copd TECHNIQUE: After the administration of intravenous contrast, 2 mm thick sections acquired from the pulmonary apices to the posterior costophrenic angles. 3-dimensional maximum intensity projection (MIP) coronal and sagittal reformats were then acquired through the thorax. For radiation dose reduction, the following was used: automated exposure control, adjustment of mA and/or kV according to patient size. COMPARISON: [facility], CT, CT ANGIO CHEST PE PROTOCOL, 10/22/2022, 13:43. [facility], CR, XR CHEST 1V, 01/18/2023, 16:49. [facility], CT, CT ANGIO CHEST PE PROTOCOL, 10/16/2022, 21:37. FINDINGS: Image quality: Limited by bolus timing. Pulmonary arteries: The bolus of the contrast injection is suboptimal. The main pulmonary artery measures approximately 160 Hounsfield units. Pulmonary artery densities are greater than 250 Hounsfield units are considered to be ideal for evaluation of pulmonary embolism. However, no large or central pulmonary emboli are seen on these images. No pulmonary emboli are seen more distally, although sensitivity for detection of such is limited on this study. Lungs and pleura: A stable right upper lobe spiculated focus is seen, as on series 5, image 75 measuring 11 mm. No pleural effusions or pneumothorax. Central and peripheral airways are patent. Mediastinum: Moderate to prominent coronary artery calcification is seen. Heart size is normal, without pericardial effusion. No mediastinal or hilar adenopathy. Thoracic aorta is normal in caliber and enhancement. Esophagus is normal in caliber, without hiatal hernia. Bones and chest wall: No suspicious bony lesions. Ribs and thoracic spine appear intact throughout. Age-appropriate bony degenerative changes are seen. Accentuated thoracic kyphosis is seen. Thyroid gland demonstrates no significant abnormality. No axillary or supraclavicular adenopathy. Abdomen: Visualized upper abdominal solid organs appear normal in the early arterial phase of enhancement. IMPRESSION: No large or central pulmonary embolism can be seen. Stable right upper lobe spiculated focus, 11 mm. Additional findings: Moderate to prominent coronary artery calcification Dictated by: Andi Suarez M.D. on 01/18/2023 at 17:40 Approved by: Andi Suarez M.D. on 01/18/2023 at 17:42
[2023-01-18 17:55] LABS: Adenovirus Not Detected (Not Detect); B. parapertussis Not Detected (Not Detecte); Bordetella pertussis Not Detected (Not Detect); Chlamydophila pneumoniae Not Detected (Not Detect); Coronavirus 229E Not Detected (Not Detect); Coronavirus HKU1 Not Detected (Not Detect); Coronavirus NL 63 Not Detected (Not Detect); Coronavirus OC43 Not Detected (Not Detect); Human Metapneumovirus Not Detected (Not Detect); Human Rhinovirus/Enterovirus Not Detected (Not Detect); Influenza A Not Detected (Not Detect); Influenza B Not Detected (Not Detect); Mycoplasma pneumoniae Not Detected (Not Detect); Parainfluenza Virus 1 Not Detected (Not Detect); Parainfluenza Virus 2 Not Detected (Not Detect); Parainfluenza Virus 3 Not Detected (Not Detect); Parainfluenza Virus 4 Not Detected (Not Detect); Respiratory Syncytial Virus Not Detected (Not Detect); SARS- CoV-2 Not Detected (Not Detecte)
[2023-01-18] MEDS: ALBUTEROL 2.5 MG/3 ML NEB (ADULT) 10 MG INH (18:04)
== END 2023-01-18 20:24 | disposition home or self-care (01) ==
PROVIDERS: Emergency Medicine; Emergency Provider Emergency Medicine
DX: J44.1 Chronic obstructive pulmonary disease with (acute) exacerbation (principal); R91.1 Solitary pulmonary nodule; Z79.899 Other long term (current) drug therapy; Z20.822 Contact with and (suspected) exposure to COVID-19
CPT/HCPCS: 36415; 71045; 71275; 80053; 83605; 83880; 84484; 85007; 85025; 85379; 85610; 87633; 93005; 93010; 94640; 96374; 99284; J2930; J7613; Q9967

== ENCOUNTER 2023-09-25 23:53 | Observation (INO) | payer OTHER, SELFPAY ==
[2023-09-25 23:58] VITALS: BP 122/60; PULSE 84; RESP 24; TEMP 36.6; O2SAT 97; BMI 29.7
[2023-09-26] VITALS (40 sets, daily range): BP systolic 115–155; BP diastolic 55–74; PULSE 56–96; RESP 17–36; TEMP 36–36.7; O2SAT 92–99; BMI 29.7
--- NOTE | 2023-09-26 01:02 | DI.RAD.S_ITS ---
PROCEDURE: XR CHEST 1V INDICATIONS: Shortness of breath TECHNIQUE: One view of the chest was acquired. COMPARISON: [facility], , XR CHEST 1V, 01/18/2023, 16:49. [facility], CR, XR CHEST 1V, 12/12/2022, 20:56. FINDINGS: Surgical changes and devices: None. Lungs and pleura: Eventration of the left hemidiaphragm. Visualized lungs appear clear. No focal consolidation. No pneumothorax or pleural effusion. Mediastinum: Mediastinal contours appear normal. Heart size is normal. Bones and chest wall: No suspicious bony lesions. Overlying soft tissues appear unremarkable. IMPRESSION: No acute cardiopulmonary abnormality is seen. Dictated by: Rafael Gotti M.D. on 09/26/2023 at 1:27 Approved by: Rafael Gotti M.D. on 09/26/2023 at 1:28
[2023-09-26 01:10] LABS: Add Manual Diff / Slide Review NO; Basophils Absolute Auto 200 /uL (0-100); Basophils Percent Auto 3.1 % (0-2); Eosinophils Absolute Auto 200 /uL (0-450); Eosinophils Percent Auto 3.2 % (2-4); Hematocrit 42.2 % (41-53); Hemoglobin 14.7 g/dL (13.5-17.5); Lymphocytes Absolute Auto 1100 /uL (1100-4500); Lymphocytes Percent Auto 14.2 % (25-40); Mean Corpuscular HGB Conc 34.9 % (30-36); Mean Corpuscular Hemoglobin 31.9 PG (26-34); Mean Corpuscular Volume 91.4 fL (80-100); Monocytes Absolute Auto 400 /uL (0-900); Monocytes Percent Auto 5.4 % (3-14); Neutrophils Absolute Auto 5700 /uL (1500-7000); Neutrophils Percent Auto 74.1 % (50-75); Platelet Count 230 X10^3/uL (150-400); Red Blood Cell Count 4.61 X10^6/uL (4.5-5.9); Red Cell Distribution Width 15.2 % (11.6-14.8); White Blood Cell Count 7.7 X10^3/uL (4.5-11.0)
[2023-09-26 01:12] LABS: INR 1.1 (0.9-1.3); Prothrombin Time 12.4 SECONDS (9.4-12.5)
[2023-09-26 01:16] LABS: Lactate (Lactic Acid) 0.7 mmol/L (0.7-2.1)
[2023-09-26 01:17] LABS: Alanine Aminotransferase 14 IU/L (<50); Albumin 3.6 g/dL (3.5-5.0); Albumin Globulin Ratio 1.2 (1.0-2.8); Alkaline Phosphatase 107 U/L (38-126); Aspartate Aminotransferase 19 IU/L (17-59); BUN Creatinine Ratio 18.4 (6-22); Blood Urea Nitrogen 18 mg/dL (9-20); Calcium 8.9 mg/dL (8.4-10.2); Carbon Dioxide 31 mmol/L (22-32); Chloride 101 mmol/L (98-107); Estimated Glomerular Filt Rate > 60 mL/min (>60); Globulin 2.9 g/dL (1.7-4.1); Glucose 115 mg/dL (80-110); HEMOLYSIS < 15 (0-50); Potassium 3.6 mmol/L (3.4-5.1); Sodium 133 mmol/L (137-145); Total Protein 6.5 g/dL (6.3-8.2)
[2023-09-26 01:28] LABS: NT-proBNP (BNP-Adult 18+) 70 pg/mL (<125); Troponin I < 0.012 ng/mL (0.01-0.034)
--- NOTE | 2023-09-26 02:06 | ED.EXTPRO ---
HPI - Extremity Problem General Chief complaint: Extremity Problem,Nontraumatic Stated complaint: lower ext edema Time Seen by Provider: 09/26/23 01:42 Source: patient and EMS Mode of arrival: EMS History of Present Illness HPI Narrative: 67-year-old male history of chronic tobacco use, COPD on Spiriva daily, history of pulmonary emboli and is not currently anticoagulated. Patient presents with complaint of increased swelling bilateral lower extremities. He states he drove the past 3 days while sleeping in their vehicle and has had increasing swelling over time. He did not wear any compression or Joseph hose. He is supposed to be on Lasix but has not been taking it. He states he is unaware of any history of congestive heart failure. He states his legs have swollen in the past but not this bad. Denies fevers, denies chest pain, denies shortness of breath, denies any nausea or vomiting. No GI or urinary symptoms. Patient states his legs are quite uncomfortable. Patient states he has not taking any medications to myself. Nursing notes when he they spoke with his he is on Lasix, he has no longer any anticoagulation, he does use albuterol and a steroid inhaler. Patient does smoke a pack every 3 days, drinks 2-3 beers daily, denies any IV or recreational drugs. Patient arrived on O2 by EMS but does not use home O2. Was not reported as hypoxic in the field. Related Data Previous Rx's Medication Instructions Recorded albuterol sulfate 90 mcg/actuation 2 puff inhalation Q4-6H PRN 01/16/21 aerosol inhaler shortness of breath or wheezing #8.5 grams apixaban 5 mg (74 tabs) tablets in See Rx Instructions PO .COMPLEX 10/17/22 a dose pack #74 ea furosemide 20 mg tablet (Lasix) 20 mg PO BID #30 tabs 10/22/22 furosemide 40 mg tablet (Lasix) 40 mg PO BID #60 tabs 10/26/22 doxycycline hyclate 100 mg tablet 100 mg PO BID #20 tabs 11/17/22 prednisone 10 mg tablet See Rx Instructions .Route 11/17/22 .COMPLEX #30 tabs furosemide 20 mg tablet (Lasix) 60 mg (3 x 20 mg) PO BID #60 tabs 12/13/22 budesonide-formoterol HFA 160 2 puff inhalation BID #10.2 grams 01/18/23 mcg-4.5 mcg/actuation aerosol inhaler (Symbicort) ipratropium 0.5 mg-albuterol 3 mg 3 ml inhalation Q6H PRN shortness 01/18/23 (2.5 mg base)/3 mL nebulization of breath or wheezing #180 mL soln nebulizer accessories #1 ea 01/18/23 nebulizer and compressor #1 ea 01/18/23 prednisone 20 mg tablet 40 mg (2 x 20 mg) PO DAILY #10 tabs 01/18/23 Allergies Allergy/AdvReac Type Severity Reaction Status Date / Time Penicillins Allergy Verified 11/17/22 02:22 Review of Systems Review of Systems ROS Unobtainable: All systems reviewed & are unremarkable except as noted in HPI and below Patient History Medical History Tobacco abuse Surgical History History of bilateral hip replacements Family History Mother Cancer Father Heart attack Social History household members: spouse Smoking Status: Current every day smoker alcohol intake: current substance use type: marijuana Smoking Status: Current every day smoker tobacco type: cigarettes alcohol intake frequency: 0-2 drinks per day Alcohol type: beer Substance Use Type: does not use Exam Narrative Exam Narrative: GENERAL: Alert and oriented x three, obese male in mild distress. Patient was sleeping when I arrived but awakens easily. HEENT: Head normocephalic, atraumatic, EOMI, pupils reactive, face symmetric, moist mucous membranes NECK: Supple, full range of motion CARDIOVASCULAR: Regular rate and rhythm without murmurs, rubs or gallops. Mild JVD. Patient has 2+ edema bilateral lower extremities. RESPIRATORY: Breath sounds equal bilaterally, n mild wheeze, no rhonchi or accessory muscle use. No rales. No crackles. ABDOMEN: Soft, nontender. Normoactive bowel sounds all 4 quadrants. No guarding or rebound, rigidity, no mass : No CVA tenderness EXTREMITIES: Normal range of motion, edema bilateral lower extremities. Neurovascularly intact NEUROLOGICAL: Cranial nerves II through XII grossly intact. Moving all extremities SKIN: Warm, dry, no petechiae, no rashes or lesions. Initial Vital Signs Initial Vital Signs: Vital Signs Temperature 97.9 F 09/25/23 23:58 Pulse Rate 84 09/25/23 23:58 Respiratory Rate 24 09/25/23 23:58 Blood Pressure 122/60 09/25/23 23:58 Pulse Oximetry 97 09/25/23 23:58 Oxygen Delivery Method Nasal Cannula 09/25/23 23:58 Oxygen Flow Rate 2 09/25/23 23:58 Course Orders Ordered: Acetaminophen (Acetaminophen 325 Mg Tablet) 650 mg PO Q6H PRN PRN Reason: Fever/Mild Pain (1-3) Apixaban (Apixaban 5 Mg Tablet) 10 mg PO BID [facility] Stop: 10/02/23 21:01 Last Admin: 09/26/23 17:17 Dose: 10 mg Documented By: KEN Naloxone HCl (Naloxone 0.4 Mg/Ml Vial) 0.2 mg IV Q2MIN PRN PRN Reason: Opiate Reversal Pantoprazole Sodium (Pantoprazole Dr 40 Mg Tablet) 40 mg PO 0700 [facility] Thiamine HCl (Thiamine 100 Mg Tablet) 100 mg PO DAILY [facility] Last Admin: 09/26/23 10:05 Dose: 100 mg Documented By: CHAYA Discontinued Medications Albuterol (Albuterol 2.5 Mg/3 Ml Neb (Adult)) 2.5 mg INH NOW ONE Stop: 09/26/23 04:37 Last Admin: 09/26/23 04:50 Dose: 2.5 mg Documented By: Albuterol (Albuterol Hfa Mdi 60 Puff/8 Gm Inhaler) 1 puff INH NOW ONE Stop: 09/26/23 10:38 Last Admin: 09/26/23 10:54 Dose: Not Given Documented By: CHAYA Albuterol (Albuterol Hfa Prepack) 1 box MISC DIRECTED ONE Stop: 09/26/23 10:51 Last Admin: 09/26/23 10:56 Dose: 1 box Documented By: CHAYA Furosemide (Furosemide 40 Mg/4 Ml Vial) 40 mg IV NOW ONE Stop: 09/26/23 02:16 Last Admin: 09/26/23 02:31 Dose: 40 mg Documented By: Furosemide (Furosemide 20 Mg/2 Ml Vial) 40 mg IV NOW ONE Stop: 09/26/23 17:01 Last Admin: 09/26/23 17:17 Dose: 40 mg Documented By: KEN Heparin Sodium (Porcine) (Heparin 5,000 Unit/Ml Vial) 7,500 unit 80 unit/kg (7500 unit) IV NOW ONE Stop: 09/26/23 06:41 Last Admin: 09/26/23 07:12 Dose: 7,500 unit Documented By: Heparin Sodium/Dextrose (Heparin Drip) 25,000 unit in 500 mls @ 34.291 mls/hr IV CONT HASEEB; Protocol Last Titration: 09/26/23 14:47 Dose: 0 units/kg/hr, 0 mls/hr Documented By: EULA Co-signed By: KEN Admin: 09/26/23 07:12 Dose: 18 units/kg/hr, 34.291 mls/hr Documented By: Co-signed By: KAMILLA Vital Signs Vital signs: Vital Signs - 8 hr 09/25/23 23:58 09/26/23 00:04 09/26/23 00:08 Temperature 97.9 F Pulse Rate 84 82 Pulse Rate [Left Dorsalis Pedis] 82 Pulse Rate [Right Dorsalis Pedis] 78 Respiratory Rate 24 Blood Pressure 122/60 Pulse Oximetry 97 97 Oxygen Delivery Method Nasal Cannula Oxygen Flow Rate 2 09/26/23 00:09 09/26/23 00:09 09/26/23 00:30 Temperature Pulse Rate 83 77 Pulse Rate [Left Dorsalis Pedis] Pulse Rate [Right Dorsalis Pedis] Respiratory Rate Blood Pressure 143/74 H Pulse Oximetry 98 98 Oxygen Delivery Method Oxygen Flow Rate 09/26/23 00:30 09/26/23 01:00 09/26/23 01:02 Temperature Pulse Rate 77 Pulse Rate [Left Dorsalis Pedis] Pulse Rate [Right Dorsalis Pedis] Respiratory Rate Blood Pressure 121/57 L 154/70 H Pulse Oximetry 98 Oxygen Delivery Method Oxygen Flow Rate 09/26/23 01:02 09/26/23 01:30 09/26/23 01:30 Temperature Pulse Rate 82 80 Pulse Rate [Left Dorsalis Pedis] Pulse Rate [Right Dorsalis Pedis] Respiratory Rate Blood Pressure 147/69 H Pulse Oximetry 98 99 Oxygen Delivery Method Oxygen Flow Rate 09/26/23 02:00 09/26/23 02:00 09/26/23 02:30 Temperature Pulse Rate 65 Pulse Rate [Left Dorsalis Pedis] Pulse Rate [Right Dorsalis Pedis] Respiratory Rate Blood Pressure 128/57 L 131/63 Pulse Oximetry 99 Oxygen Delivery Method Oxygen Flow Rate 09/26/23 02:30 09/26/23 03:00 09/26/23 03:01 Temperature Pulse Rate 65 74 Pulse Rate [Left Dorsalis Pedis] Pulse Rate [Right Dorsalis Pedis] Respiratory Rate Blood Pressure 145/69 H Pulse Oximetry 94 93 Oxygen Delivery Method Room Air Room Air Oxygen Flow Rate 09/26/23 03:01 09/26/23 03:30 09/26/23 03:30 Temperature Pulse Rate 74 77 Pulse Rate [Left Dorsalis Pedis] Pulse Rate [Right Dorsalis Pedis] Respiratory Rate 18 Blood Pressure 155/70 H Pulse Oximetry 95 92 Oxygen Delivery Method Room Air Room Air Oxygen Flow Rate 09/26/23 04:10 09/26/23 04:30 09/26/23 05:30 Temperature Pulse Rate 96 H 90 58 L Pulse Rate [Left Dorsalis Pedis] Pulse Rate [Right Dorsalis Pedis] Respiratory Rate 18 Blood Pressure Pulse Oximetry 94 93 97 Oxygen Delivery Method Room Air Room Air Room Air Oxygen Flow Rate 09/26/23 06:00 Temperature Pulse Rate 74 Pulse Rate [Left Dorsalis Pedis] Pulse Rate [Right Dorsalis Pedis] Respiratory Rate 19 Blood Pressure Pulse Oximetry 95 Oxygen Delivery Method Room Air Oxygen Flow Rate MDM - Extremity (Nontraumatic) Lab Data 09/26/23 00:58 09/26/23 00:58 Labs: Lab Results 09/26/23 Range/Units 00:58 WBC 7.7 (4.5-11.0) X10^3/uL RBC 4.61 (4.5-5.9) X10^6/uL Hgb 14.7 (13.5-17.5) g/dL Hct 42.2 (41-53) % MCV 91.4 (80-100) fL MCH 31.9 (26-34) PG MCHC 34.9 (30-36) % RDW 15.2 H (11.6-14.8) % Plt Count 230 (150-400) X10^3/uL Neut % (Auto) 74.1 (50-75) % Lymph % (Auto) 14.2 L (25-40) % Carbon % (Auto) 5.4 (3-14) % Eos % (Auto) 3.2 (2-4) % Baso % (Auto) 3.1 H (0-2) % Neut # (Auto) 5700 (3288-9203) /uL Lymph # (Auto) 1100 (1004-1999) /uL Carbon # (Auto) 400 (0-900) /uL Eos # (Auto) 200 (0-450) /uL Baso # (Auto) 200 H (0-100) /uL PT 12.4 (9.4-12.5) SECONDS INR 1.1 (0.9-1.3) D-Dimer 2064 H (<500) ng/ml Sodium 133 L (137-145) mmol/L Potassium 3.6 (3.4-5.1) mmol/L Chloride 101 (98-107) mmol/L Carbon Dioxide 31 (22-32) mmol/L BUN 18 (9-20) mg/dL Creatinine 0.98 (0.66-1.25) mg/dL Estimated GFR > 60 (>60) mL/min BUN/Creatinine Ratio 18.4 (6-22) Glucose 115 H (80-110) mg/dL Lactate 0.7 (0.7-2.1) mmol/L Calcium 8.9 (8.4-10.2) mg/dL Total Bilirubin 1.0 (0.2-1.3) mg/dL AST 19 (17-59) IU/L ALT 14 (<50) IU/L Alkaline Phosphatase 107 (38-126) U/L Troponin I < 0.012 (0.01-0.034) ng/mL NT-Pro-B Natriuret Pep 70 (<125) pg/mL Total Protein 6.5 (6.3-8.2) g/dL Albumin 3.6 (3.5-5.0) g/dL Globulin 2.9 (1.7-4.1) g/dL Albumin/Globulin Ratio 1.2 (1.0-2.8) Imaging Data Chest x-ray: Radiologist's Impression: [address] [address] XRay Report Signed Patient: Ashley Shafer MR#: [id number] : 1955 Acct:[id number] Age/Sex: 67 / M Date of Service: 09/26/23 Loc: ED Accession Number: [id number] Procedure: XR chest 1V Ordering Provider: Analia Armas D.O. PROCEDURE: XR CHEST 1V INDICATIONS: Shortness of breath TECHNIQUE: One view of the chest was acquired. COMPARISON: [facility], CR, XR CHEST 1V, 01/18/2023, 16:49. [facility], CR, XR CHEST 1V, 12/12/2022, 20:56. FINDINGS: Surgical changes and devices: None. Lungs and pleura: Eventration of the left hemidiaphragm. Visualized lungs appear clear. No focal consolidation. No pneumothorax or pleural effusion. Mediastinum: Mediastinal contours appear normal. Heart size is normal. Bones and chest wall: No suspicious bony lesions. Overlying soft tissues appear unremarkable. IMPRESSION: No acute cardiopulmonary abnormality is seen. Dictated by: Rafael Gotti M.D. on 09/26/2023 at 1:27 Approved by: Rafael Gotti M.D. on 09/26/2023 at 1:28 ECG Data Attestation EKG: I personally reviewed and interpreted this ECG as follows: Interpretation: Normal sinus rhythm rate of 71 IL 170 QRS 84 QTC 432. No acute ST elevation or depression noted. MDM Narrative Medical decision making narrative: Labs white count of 7.7 hemoglobin of 14 platelets of 230, INR is 1.1 sodium is 133 electrolytes are otherwise normal normal renal function glucose of 115 LFTs are negative. Troponin is less than 0.012. BNP is 70. Chest x-ray shows no acute change. Patient did just have a long distance drive has bilateral lower extremity edema had D-dimer which is elevated in 2000 range. DVT ultrasound were ordered and is negative. EKG shows no acute change Patient was given Lasix Patient does not use home O2, was on O2 when he arrived and was not checked on room air. O2 was stopped he is 98-97% at rest. Patient has not required any oxygen since removed by myself. Patient continued to complain of some shortness of breath. Was given [address] angio was obtained as he does have positive dimer although DVTs at home ultrasounds were negative. CT angio is positive for pulmonary emboli with segmental and subsegmental emboli in the right upper, middle pulmonary and left upper lobe pulmonary arteries. Nodule in the right upper lobe 8 mm. Pleural parenchymal scarring at the lung apices. Patient does have multi level spondylitic changes thoracic spine and thoracic kyphosis. Patient's vitals have overall been appropriate, started on anticoagulation but contacted hospitalist for observation and echo as patient does have worsening lower extremity edema, although lab findings are reassuring from a fluid overload and cardiac perspective. Contacted Dr. Cooper who kindly accepts for observation and saaw patient in department. Discharge Plan Departure Patient Disposition: Admitted as Observation Clinical Impression: Pulmonary embolism, Pulmonary nodule Admit Date/Time: 09/26/23 07:03 Admit Provider: Mendez Cooper
--- NOTE | 2023-09-26 02:25 | EKG_ITS ---
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
[2023-09-26] MEDS: FUROSEMIDE 40 MG/4 ML VIAL IV (02:31)
[2023-09-26 02:36] LABS: D Dimer 2064 ng/ml (<500)
--- NOTE | 2023-09-26 02:55 | DI.US.S_ITS ---
PROCEDURE: [facility] VENOUS LOW EXTREM BI INDICATIONS: b/l le swelling, long distance driving. TECHNIQUE: Real-time imaging, as well as color and pulse Doppler interrogation, were performed of the deep veins of both legs from the inguinal ligament to the popliteal fossa, with documentation of the visualized calf veins. COMPARISON: [facility], , [facility] VENOUS LOW EXTREM BI, 12/12/2022, 22:37. FINDINGS: Right: The common femoral, femoral, popliteal, and the visualized calf veins are normally compressible, and free of intraluminal thrombus. Color and pulse Doppler demonstrate normal phasic intravascular flow. There is normal augmentation response to distal compression maneuver. Left: The common femoral, femoral, popliteal, and the visualized calf veins are normally compressible, and free of intraluminal thrombus. Color and pulse Doppler demonstrate normal phasic intravascular flow. There is normal augmentation response to distal compression maneuver. IMPRESSION: No findings of deep venous thrombosis in either lower extremity. Dictated by: Mark Bowden M.D. on 09/26/2023 at 9:05 Approved by: Mark Bowden M.D. on 09/26/2023 at 9:05
--- NOTE | 2023-09-26 04:24 | PC.NURSE ---
Addendum entered by Debbie Castro CNA 09/26/23 05:05: BLAIEN note: Patient called right after Tammie went into the room. Patient said I'm ready to lay down. You need to help me move my legs. Repositioned patient in bed. Patient required 2 staff to help get him repositioned because patient couldn't do it by himself. After we repositioned him, I was leaving with a urinal that had urine. Patient said don't I get a blanket? Patient had 2 blankets currently on him at that point. I said once I emptied his urinal I would get him another warm blanket. As I was emptying his urinal patient called again, staff member Tammie went into the room. I had been gone less than 1 minute, patient had asked Tammie for a warm blanket. Tammie got him a blanket as I was bringing him a blanket. Covered up patient and asked him if he needed anything else. Patient asked when do I get off work. I told him 0730. Patient laughed and said you're almost done. I asked him if he needed anything else. Patient declined. Call light and urinal within reach. Original Note: BLAINE note: At 0415 patient requested a complete bed change. He stood at the side of the bed while I changed the bed. I got him back into bed and patient requested to be put on oxygen. I told him I would tell that to the nurse. I emptied his urinal at that time as well. I spoke to nurse Kath and Doctor Armas about the patient requesting oxygen. His O2 saturation was at 96 on room air at that time. I went back into room and told him what the doctor said. As I was typing this note, patient's came out to speak to me. She told me that patient takes albuterol was wondering about that. I told her I would talk to the nurse. A moment later, patient called again and asked about the oxygen again. I reiterated what the doctor said. His oxygen saturation was at 94% on room air at that time. He complained he wanted oxygen. I emptied patient's urinal again at this time. Patient's has come out repeatedly to talk to me about what the patient needs, and how he's sitting at the end of the bed.
[2023-09-26] MEDS: ALBUTEROL 2.5 MG/3 ML NEB (ADULT) INH (04:50)
--- NOTE | 2023-09-26 05:16 | DI.CT.S_ITS ---
PROCEDURE: CT ANGIO CHEST PE PROTOCOL INDICATIONS: sob, edema. TECHNIQUE: After the administration of intravenous contrast, 2 mm thick sections acquired from the pulmonary apices to the posterior costophrenic angles. 3-dimensional maximum intensity projection (MIP) coronal and sagittal reformats were then acquired through the thorax. For radiation dose reduction, the following was used: automated exposure control, adjustment of mA and/or kV according to patient size. COMPARISON: [facility], CT, CT ANGIO CHEST PE PROTOCOL, 01/18/2023, 17:54. FINDINGS: Image quality: Diagnostic Lungs and pleura: Scattered scarring and atelectasis. Mild bronchial wall thickening diffusely. No drainable pleural effusions. 11 mm right upper lobe spiculated nodule again seen. Mediastinum, heart, and esophagus: Right pulmonary embolism extending to the middle lobe and upper lobe from the right main pulmonary artery. Segmental and subsegmental emboli also seen on the left. Coronary calcifications. Trace pericardial fluid versus effusion. No pathologic lymph nodes by size criteria. Chest wall and thyroid: Unremarkable Upper abdomen: There are small hypoattenuating liver lesions are too small to characterize, probably present on prior imaging. No gross abnormality otherwise in the partially visualized upper abdomen. Possible nonobstructing renal stones. Bones: Degenerative changes. IMPRESSION: Pulmonary embolism extending from the right pulmonary artery to the middle and upper branches. Segmental and subsegmental emboli also seen on the left. Mild diffuse bronchial wall thickening. No dense airspace disease or pleural effusions. Right upper lobe spiculated pulmonary nodule again seen. Consider continued follow-up imaging. Agree with prelim report. Dictated by: Mark Bowden M.D. on 09/26/2023 at 9:13 Approved by: Mark Bowden M.D. on 09/26/2023 at 9:18
--- NOTE | 2023-09-26 06:40 | DI.ECHO.S_ITS ---
[facility]+ [facility] : : [id number] : : [place] : : [id number] : : Phone: [phone] Echocardiogram Report + + :Name: MAJO SAWYER Study Date: 09/26/2023 Height: 70.5 in: :[facility] ReadingLocation: Weight: 209 lb : : Gender: Male BSA: 2.1 m2 : :: 1955 Age: 67 yrs BP: 138/64 mmHg: :Reason For Study: PULMONARY EMBOLISM : :Ordering Physician: DARIELA, : :SALLY Performed By: Deepa Cedeño : :Referring: SALLY LYLE : + + Interpretation Summary Technically difficult study, images enhanced with Definity echocontrast. Normal sinus rhythm. Normal LV size and wall thickness. Normal wall motion and LV systolic function. Ejection fraction 60-65%. Normal chamber sizes. No significant valvular abnormalities. Stage I diastolic dysfunction. Procedure: A two-dimensional transthoracic echocardiogram with color flow and Doppler was performed. The study quality was technically difficult. The study quality was technically limited. Comparison is made with the echocardiogram of 10/17/2022. A contrast injection of Definity was performed to improve assessment of LV function. The heart rate ranged between 76-86 bpm during the study. Left Ventricle: The left ventricle is grossly normal size. Left ventricular systolic function visually appears normal. Right Ventricle: The right ventricle is normal in size and function. Atria: The left atrium grossly appears normal in size. Right atrial size is normal. There is no Doppler evidence for an interatrial shunt. Mitral Valve: The mitral valve is not well visualized. There is no mitral regurgitation noted. Aortic Valve: The aortic valve is not well visualized. There is no aortic valve stenosis. No aortic regurgitation is present. Tricuspid Valve: The tricuspid valve is not well visualized. There is trace tricuspid regurgitation. Pulmonary artery pressures cannot be estimated because of the lack of a measurable TR jet velocity. Pulmonic Valve: The pulmonic valve is not well visualized. There is no pulmonic valvular regurgitation. Great Vessels: The ascending aorta could not be visualized. The IVC is of normal diameter and collapses greater than 50% with a sniff. This suggests a low right atrial pressure of 3 mm Hg. Pericardium/ Pleura There is no pericardial effusion. There is no pleural effusion. MMode/2D Measurements & Calculations LVOT diam: 2.1 cm LA A4 area: 16.7 cm2 Ao root diam: 3.4 cm LA length (vol): 5.1 cm RA long axis: 4.5 cm RVD1 (basal): 3.9 cm RA area: 11.5 cm2 RVD2 (mid): 2.8 cm RA vol: 25.2 ml TAPSE: 2.0 cm RA : 11.8 ml/m2 IVC diam: 1.1 cm Doppler Measurements & Calculations Ao V2 max: 147.2 cm/sec LVOT Max Vern: 105.5 cm/sec Ao V2 mean: 98.6 cm/sec LV V1 max P.5 mmHg Ao max P.7 mmHg LV V1 VTI: 20.1 cm Ao mean P.5 mmHg KATERINA(I,D): 2.7 cm2 Ao V2 VTI: 24.4 cm KATERINA(V,D): 2.4 cm2 sev ratio: 0.82 KATERINA indexed to BSA (cm^2/m^2): 1.3 MV E max vern: 68.9 cm/sec PA V2 max: 94.2 cm/sec MV A max vern: 80.0 cm/sec PA V2 mean: 69.6 cm/sec MV E/A: 0.86 PA mean P.1 mmHg Med Peak E' Vern: 6.8 cm/sec PA pr(Accel): 39.6 mmHg E/E' med: 10.1 Lat Peak E' Vern: 7.4 cm/sec E/E' lat: 9.3 E/e' average: 9.7 MV dec time: 0.25 sec SV(LVOT): 66.7 ml Electronically signed by: Christi Mohan M.D. on Reading Physician:09/26/2023 01:21 PM
[2023-09-26] MEDS: HEPARIN 5,000 UNIT/ML VIAL 7500 UNIT IV (07:12)
[2023-09-26] MEDS: HEPARIN DRIP 25,000 UNIT/500 ML IV.SOLN 34.291 UNIT IV (07:12)
--- NOTE | 2023-09-26 07:18 | P.HP_ITS ---
History of Present Illness History of Present Illness Date Patient Seen: 09/26/23 Time Patient Seen: 07:02 Chief complaint: lower ext edema Narrative: A 12 point review of system is negative unless otherwise stated in the history of present illness 67 years old male with a past medical history of COPD, chronic smoking, pulm embolism not on anticoagulation other medical issues presents to the emergency room for progressive bilateral lower extremity edema that has worsened in the past 3 days. Apparently patient was driving the car across the country from [facility] for the past 3 days while sleeping in his vehicle with progressive increase in the lower extremity edema. Denies any chest pain shortness of breath palpitation dizziness or loss of consciousness. Denies any cough wheezing headache or upper respiratory symptoms. Denies any blurred vision. Does smoke a pack and drink 2-3 beers daily. In the ED, was noted to be tachypneic with respiration in the mid 20s. Was placed on 2 L oxygen to maintain O2 saturation in the mid 90s and on room air his O2 saturation dropped to 92%. Labs were fairly unremarkable except for a sodium of 133. Chest x-ray shows no acute process. ECG shows normal sinus rhythm. Lower extremity Doppler was negative for DVT bilaterally based on pulmonary report but a final report is pending. CT angiogram was done in the setting of elevated D-dimer levels and it is positive for pulm embolism with subsegmental and segmental embolism in the right upper middle and left upper lobe pulmonary arteries. Given the persistent symptoms, patient was admitted for observation [facility] Medical History Tobacco abuse Surgical History History of bilateral hip replacements Family History Mother Cancer Father Heart attack Social History household members: spouse Smoking Status: Current every day smoker alcohol intake: current substance use type: marijuana Meds Home Medications and Allergies Home Medications Medication Instructions Recorded Confirmed Type albuterol sulfate 90 mcg/actuation 2 puff inhalation Q4-6H PRN 01/16/21 10/17/22 Rx aerosol inhaler shortness of breath or wheezing #8.5 grams apixaban 5 mg (74 tabs) tablets in See Rx Instructions PO .COMPLEX 10/17/22 Rx a dose pack #74 ea furosemide 20 mg tablet (Lasix) 20 mg PO BID #30 tabs 10/22/22 Rx furosemide 40 mg tablet (Lasix) 40 mg PO BID #60 tabs 10/26/22 Rx doxycycline hyclate 100 mg tablet 100 mg PO BID #20 tabs 11/17/22 Rx prednisone 10 mg tablet See Rx Instructions .Route 11/17/22 Rx .COMPLEX #30 tabs furosemide 20 mg tablet (Lasix) 60 mg (3 x 20 mg) PO BID #60 tabs 12/13/22 Rx budesonide-formoterol HFA 160 2 puff inhalation BID #10.2 grams 01/18/23 Rx mcg-4.5 mcg/actuation aerosol inhaler (Symbicort) ipratropium 0.5 mg-albuterol 3 mg 3 ml inhalation Q6H PRN shortness 01/18/23 Rx (2.5 mg base)/3 mL nebulization of breath or wheezing #180 mL soln nebulizer accessories #1 ea 01/18/23 Rx nebulizer and compressor #1 ea 01/18/23 Rx prednisone 20 mg tablet 40 mg (2 x 20 mg) PO DAILY #10 tabs 01/18/23 Rx Allergies Allergy/AdvReac Type Severity Reaction Status Date / Time Penicillins Allergy Verified 11/17/22 02:22 Review of Systems Review of Systems Narrative: A 12 point review of system is negative unless otherwise stated in the history of present illness Exam Vital Signs (past 8 hours): - 09/25/23 23:58 09/26/23 00:04 09/26/23 00:08 Temperature 97.9 F Pulse Rate 84 82 Pulse Rate [Left Dorsalis Pedis] 82 Pulse Rate [Right Dorsalis Pedis] 78 Respiratory Rate 24 Blood Pressure 122/60 Pulse Oximetry 97 97 Oxygen Delivery Method Nasal Cannula Oxygen Flow Rate 2 09/26/23 00:09 09/26/23 00:09 09/26/23 00:30 Temperature Pulse Rate 83 77 Pulse Rate [Left Dorsalis Pedis] Pulse Rate [Right Dorsalis Pedis] Respiratory Rate Blood Pressure 143/74 H Pulse Oximetry 98 98 Oxygen Delivery Method Oxygen Flow Rate 09/26/23 00:30 09/26/23 01:00 09/26/23 01:02 Temperature Pulse Rate 77 Pulse Rate [Left Dorsalis Pedis] Pulse Rate [Right Dorsalis Pedis] Respiratory Rate Blood Pressure 121/57 L 154/70 H Pulse Oximetry 98 Oxygen Delivery Method Oxygen Flow Rate 09/26/23 01:02 09/26/23 01:30 09/26/23 01:30 Temperature Pulse Rate 82 80 Pulse Rate [Left Dorsalis Pedis] Pulse Rate [Right Dorsalis Pedis] Respiratory Rate Blood Pressure 147/69 H Pulse Oximetry 98 99 Oxygen Delivery Method Oxygen Flow Rate 09/26/23 02:00 09/26/23 02:00 09/26/23 02:30 Temperature Pulse Rate 65 Pulse Rate [Left Dorsalis Pedis] Pulse Rate [Right Dorsalis Pedis] Respiratory Rate Blood Pressure 128/57 L 131/63 Pulse Oximetry 99 Oxygen Delivery Method Oxygen Flow Rate 09/26/23 02:30 09/26/23 03:00 09/26/23 03:01 Temperature Pulse Rate 65 74 Pulse Rate [Left Dorsalis Pedis] Pulse Rate [Right Dorsalis Pedis] Respiratory Rate Blood Pressure 145/69 H Pulse Oximetry 94 93 Oxygen Delivery Method Room Air Room Air Oxygen Flow Rate 09/26/23 03:01 09/26/23 03:30 09/26/23 03:30 Temperature Pulse Rate 74 77 Pulse Rate [Left Dorsalis Pedis] Pulse Rate [Right Dorsalis Pedis] Respiratory Rate 18 Blood Pressure 155/70 H Pulse Oximetry 95 92 Oxygen Delivery Method Room Air Room Air Oxygen Flow Rate 09/26/23 04:10 09/26/23 04:30 09/26/23 05:30 Temperature Pulse Rate 96 H 90 58 L Pulse Rate [Left Dorsalis Pedis] Pulse Rate [Right Dorsalis Pedis] Respiratory Rate 18 Blood Pressure Pulse Oximetry 94 93 97 Oxygen Delivery Method Room Air Room Air Room Air Oxygen Flow Rate 09/26/23 06:00 Temperature Pulse Rate 74 Pulse Rate [Left Dorsalis Pedis] Pulse Rate [Right Dorsalis Pedis] Respiratory Rate 19 Blood Pressure Pulse Oximetry 95 Oxygen Delivery Method Room Air Oxygen Flow Rate Oxygen Delivery Method Room Air Oxygen Flow Rate 2 Narrative Exam Narrative: Patient is awake and able to follow commands. Does not appear to be acutely dyspneic 2+ edema noted bilaterally in the lower extremity and tenderness in the calf Air entry decreased at the base bilaterally in the lungs Objective Labs 09/26/23 00:58 09/26/23 00:58 Labs: Laboratory Results - last 24 hr 09/26/23 00:58 WBC 7.7 RBC 4.61 Hgb 14.7 Hct 42.2 MCV 91.4 MCH 31.9 MCHC 34.9 RDW 15.2 H Plt Count 230 Neut % (Auto) 74.1 Lymph % (Auto) 14.2 L [place] % (Auto) 5.4 Eos % (Auto) 3.2 Baso % (Auto) 3.1 H Neut # (Auto) 5700 Lymph # (Auto) 1100 [place] # (Auto) 400 Eos # (Auto) 200 Baso # (Auto) 200 H PT 12.4 INR 1.1 D-Dimer 2064 H Sodium 133 L Potassium 3.6 Chloride 101 Carbon Dioxide 31 BUN 18 Creatinine 0.98 Estimated GFR > 60 BUN/Creatinine Ratio 18.4 Glucose 115 H Lactate 0.7 Calcium 8.9 Total Bilirubin 1.0 AST 19 ALT 14 Alkaline Phosphatase 107 Troponin I < 0.012 NT-Pro-B Natriuret Pep 70 Total Protein 6.5 Albumin 3.6 Globulin 2.9 Albumin/Globulin Ratio 1.2 Assessment & Plan Assessment & Plan narrative: 67 years old male with a past medical history of COPD, chronic smoking, pulm embolism not on anticoagulation other medical issues presents to the emergency room for progressive bilateral lower extremity edema that has worsened in the past 3 days. Apparently patient was driving the car across the country from [facility] for the past 3 days while sleeping in his vehicle with progressive increase in the lower extremity edema. Denies any chest pain shortness of breath palpitation dizziness or loss of consciousness. Denies any cough wheezing headache or upper respiratory symptoms. Denies any blurred vision. Does smoke a pack and drink 2-3 beers daily. In the ED, was noted to be tachypneic with respiration in the mid 20s. Was placed on 2 L oxygen to maintain O2 saturation in the mid 90s and on room air his O2 saturation dropped to 92%. Labs were fairly unremarkable except for a sodium of 133. Chest x-ray shows no acute process. ECG shows normal sinus rhythm. Lower extremity Doppler was negative for DVT bilaterally based on pulmonary report but a final report is pending. CT angiogram was done in the setting of elevated D-dimer levels and it is positive for pulm embolism with subsegmental and segmental embolism in the right upper middle and left upper lobe pulmonary arteries. Given the persistent symptoms, patient was admitted for observation 1. Acute pulmonary embolism bilaterally the patient with a history of PE and has since discontinued the anticoagulation. Does continue to smoke. Lower extremity Doppler is negative for now and monitor for now. For now cont. heparin drip initiated in ED with plans to eventually transition therapeutic anticoagulation with Lovenox / DOAC and follow-up with an echocardiogram while monitoring the telemetry. Check for any occult malignancies given his history of smoking and may need a CT abdomen none emergently 2. COPD patient with history of chronic smoking. Continue nebulizers and inhalers with oxygen supplementation to maintain O2 saturation above 92%. 3 GI prophylaxis will be with Protonix 4 DVT prophylaxis on therapeutic Heparin 5.Smoker: Declined patch and advised to quit 6.Alcohol use: 2-3 beers per day. watch for withdrawal and initiate Thiamine will be admitted under observation status
[2023-09-26] MEDS: THIAMINE 100 MG TABLET PO (10:05)
--- NOTE | 2023-09-26 10:16 | PC.NURSE ---
I assisted patient to sit up on edge of bed to eat his breakfast, ok to sit up per Dr. Brumfield.
[2023-09-26] MEDS: ALBUTEROL HFA PREPACK 1 BOX MISC (10:56)
--- NOTE | 2023-09-26 11:00 | PC.NURSE ---
Verbal order obtained for albuterol inhaler from Dr. aguayo. Patient had moderate expiratory wheeze with increased work of breathing before Albuterol. After 1 puff patient reports decrease in shortness of breath. Able to lie on his side for echo exam. Patient now has a mild expiratory wheeze.
[2023-09-26 14:35] LABS: PTT Partial Thromboplastin Tim 184 SECONDS (25.1-36.5)
--- NOTE | 2023-09-26 14:45 | PM.HP.1 ---
History of Present Illness History of Present Illness Date Patient Seen: 09/26/23 Time Patient Seen: 08:25 Date of Onset of Symptoms: 09/25/23 Chief complaint: lower ext edema Narrative: Admission note: 67 years old male with a past medical history of COPD, chronic smoking, pulm embolism not on anticoagulation other medical issues presents to the emergency room for progressive bilateral lower extremity edema that has worsened in the past 3 days. Apparently patient was driving the car across the country from [facility] for the past 3 days while sleeping in his vehicle with progressive increase in the lower extremity edema. Denies any chest pain shortness of breath palpitation dizziness or loss of consciousness. Denies any cough wheezing headache or upper respiratory symptoms. Denies any blurred vision. Does smoke a pack and drink 2-3 beers daily. In the ED, was noted to be tachypneic with respiration in the mid 20s. Was placed on 2 L oxygen to maintain O2 saturation in the mid 90s and on room air his O2 saturation dropped to 92%. Labs were fairly unremarkable except for a sodium of 133. Chest x-ray shows no acute process. ECG shows normal sinus rhythm. Lower extremity Doppler was negative for DVT bilaterally based on pulmonary report but a final report is pending. CT angiogram was done in the setting of elevated D-dimer levels and it is positive for pulm embolism with subsegmental and segmental embolism in the right upper middle and left upper lobe pulmonary arteries. Given the persistent symptoms, patient was admitted for observation Interval history: The patient reports that he has had a history of pulmonary embolism in the past. Review of records reveal a left upper lobe pulmonary embolism diagnosis in October 2022 associated with a left lower extremity DVT and discharged on Eliquis at that time. He also had a 1 cm spiculated nodule in the right upper lobe with follow-up imaging advised. He was transferred to the medical floor on an IV heparin infusion. [facility] Medical History Tobacco abuse Surgical History History of bilateral hip replacements Family History Mother Cancer Father Heart attack Social History household members: spouse Smoking Status: Current every day smoker alcohol intake: current substance use type: marijuana Meds Home Medications and Allergies Home Medications Medication Instructions Recorded Confirmed Type albuterol sulfate 90 mcg/actuation 2 puff inhalation Q4-6H PRN 01/16/21 10/17/22 Rx aerosol inhaler shortness of breath or wheezing #8.5 grams apixaban 5 mg (74 tabs) tablets in See Rx Instructions PO .COMPLEX 10/17/22 Rx a dose pack #74 ea furosemide 20 mg tablet (Lasix) 20 mg PO BID #30 tabs 10/22/22 Rx furosemide 40 mg tablet (Lasix) 40 mg PO BID #60 tabs 10/26/22 Rx doxycycline hyclate 100 mg tablet 100 mg PO BID #20 tabs 11/17/22 Rx prednisone 10 mg tablet See Rx Instructions .Route 11/17/22 Rx .COMPLEX #30 tabs furosemide 20 mg tablet (Lasix) 60 mg (3 x 20 mg) PO BID #60 tabs 12/13/22 Rx budesonide-formoterol HFA 160 2 puff inhalation BID #10.2 grams 01/18/23 Rx mcg-4.5 mcg/actuation aerosol inhaler (Symbicort) ipratropium 0.5 mg-albuterol 3 mg 3 ml inhalation Q6H PRN shortness 01/18/23 Rx (2.5 mg base)/3 mL nebulization of breath or wheezing #180 mL soln nebulizer accessories #1 ea 01/18/23 Rx nebulizer and compressor #1 ea 01/18/23 Rx prednisone 20 mg tablet 40 mg (2 x 20 mg) PO DAILY #10 tabs 01/18/23 Rx Allergies Allergy/AdvReac Type Severity Reaction Status Date / Time Penicillins Allergy Verified 11/17/22 02:22 Review of Systems Review of Systems ROS: Yes All systems reviewed with the patient and are negative except as otherwise documented Exam Vital Signs (past 8 hours): - 09/26/23 07:00 09/26/23 07:13 09/26/23 07:30 Temperature Pulse Rate 59 L 61 Respiratory Rate Blood Pressure Pulse Oximetry 97 96 Oxygen Delivery Method Room Air 09/26/23 07:40 09/26/23 07:40 09/26/23 08:00 Temperature Pulse Rate 58 L 63 Respiratory Rate 21 Blood Pressure 115/55 L Pulse Oximetry 96 95 Oxygen Delivery Method 09/26/23 08:01 09/26/23 08:01 09/26/23 08:30 Temperature Pulse Rate 58 L Respiratory Rate 26 H Blood Pressure 136/60 123/57 L Pulse Oximetry 95 Oxygen Delivery Method 09/26/23 08:30 09/26/23 09:00 09/26/23 09:30 Temperature Pulse Rate 66 71 Respiratory Rate 24 Blood Pressure 138/68 Pulse Oximetry 95 96 Oxygen Delivery Method 09/26/23 09:30 09/26/23 10:00 09/26/23 10:00 Temperature Pulse Rate 72 67 Respiratory Rate 18 34 H Blood Pressure 140/63 Pulse Oximetry 96 96 Oxygen Delivery Method 09/26/23 10:30 09/26/23 10:34 09/26/23 10:34 Temperature Pulse Rate 90 86 Respiratory Rate 30 H 31 H Blood Pressure 138/64 Pulse Oximetry 95 96 Oxygen Delivery Method 09/26/23 11:00 09/26/23 11:00 09/26/23 11:30 Temperature Pulse Rate 78 70 Respiratory Rate 36 H 23 Blood Pressure 131/60 Pulse Oximetry 97 96 Oxygen Delivery Method 09/26/23 11:30 09/26/23 12:00 09/26/23 12:01 Temperature Pulse Rate 64 Respiratory Rate 19 Blood Pressure 124/58 L 150/69 H Pulse Oximetry 95 Oxygen Delivery Method 09/26/23 12:01 09/26/23 12:30 09/26/23 12:31 Temperature Pulse Rate 56 L 58 L 58 L Respiratory Rate 17 17 18 Blood Pressure Pulse Oximetry 97 94 94 Oxygen Delivery Method 09/26/23 12:31 09/26/23 13:00 09/26/23 13:01 Temperature Pulse Rate 66 Respiratory Rate 21 Blood Pressure 117/56 L 146/65 H Pulse Oximetry 96 Oxygen Delivery Method 09/26/23 13:01 09/26/23 13:36 09/26/23 13:47 Temperature 98 F 97.9 F Pulse Rate 64 89 Respiratory Rate 19 19 Blood Pressure 121/67 Pulse Oximetry 96 96 Oxygen Delivery Method Oxygen Delivery Method Room Air Oxygen Flow Rate 2 Narrative Exam Narrative: GENERAL: This is a well-nourished, well-developed patient, in no apparent distress. HEAD: Atraumatic. Normocephalic. No temporal or scalp tenderness. EYES: Pupils equal round and reactive. Extraocular motions intact. No scleral icterus. No injection or drainage. ENT: Mucous membranes pink and moist. NECK: Trachea midline. No JVD, bruits or lymphadenopathy. Supple, nontender, no meningeal signs. CARDIOVASCULAR: Regular rate and rhythm without murmurs, gallops, or rubs. RESPIRATORY: Clear to auscultation. GASTROINTESTINAL: Abdomen soft, non-tender, nondistended. EXTREMITIES: 2+ edema. BACK: Nontender without deformity or crepitance. No flank tenderness. NEUROLOGIC: Alert, oriented, speech fluent, full upper and lower motor strength, no focal deficits evident. DERMATOLOGIC: No rashes or skin lesions. Objective ECG Impression: Normal sinus rhythm at 71bpm, no ischemic changes Imaging CT scan - chest: Radiologist's impression: Pulmonary embolism extending from the right pulmonary artery to the middle and upper branches. Segmental and subsegmental emboli also seen on the left. Mild diffuse bronchial wall thickening. No dense airspace disease or pleural effusions. Right upper lobe spiculated pulmonary nodule again seen. Consider continued follow-up imaging. Lower extremity venous US: Radiologist's impression: No findings of deep venous thrombosis in either lower extremity. Chest x-ray: Radiologist's impression: No acute cardiopulmonary abnormality is seen. Echocardiogram: Radiologist's impression: Technically difficult study, images enhanced with Definity echocontrast. Normal sinus rhythm. Normal LV size and wall thickness. Normal wall motion and LV systolic function. Ejection fraction 60-65%. Normal chamber sizes. No significant valvular abnormalities. Stage I diastolic dysfunction. Labs 09/26/23 00:58 09/26/23 00:58 Labs: Laboratory Results - last 24 hr 09/26/23 09/26/23 09/26/23 00:58 09:30 14:03 WBC 7.7 RBC 4.61 Hgb 14.7 Hct 42.2 MCV 91.4 MCH 31.9 MCHC 34.9 RDW 15.2 H Plt Count 230 Neut % (Auto) 74.1 Lymph % (Auto) 14.2 L [place] % (Auto) 5.4 Eos % (Auto) 3.2 Baso % (Auto) 3.1 H Neut # (Auto) 5700 Lymph # (Auto) 1100 [place] # (Auto) 400 Eos # (Auto) 200 Baso # (Auto) 200 H PT 12.4 INR 1.1 APTT 184 H* D-Dimer 2064 H Sodium 133 L Potassium 3.6 Chloride 101 Carbon Dioxide 31 BUN 18 Creatinine 0.98 Estimated GFR > 60 BUN/Creatinine Ratio 18.4 Glucose 115 H Lactate 0.7 Calcium 8.9 Total Bilirubin 1.0 AST 19 ALT 14 Alkaline Phosphatase 107 Troponin I < 0.012 NT-Pro-B Natriuret Pep 70 Total Protein 6.5 Albumin 3.6 Globulin 2.9 Albumin/Globulin Ratio 1.2 Assessment & Plan Assessment & Plan narrative: 1. Acute recurrent pulmonary embolism, provoked following a long car ride over 3 days. Transition from IV heparin to apixaban 10 mg b.i.d.. Lower extremity Doppler showed no evidence of deep venous thrombosis. 2. Right upper lobe pulmonary nodule. Outpatient follow-up advised as a potential underlying malignancy contributing to recurrent pulmonary embolism. 3. Chronic obstructive pulmonary disease. Continue routine nebulizers and inhalers. Clinically stable without hypoxemia. 4. Chronic tobacco use. Smoking cessation advised. 5. Alcohol use. 2-3 beers reported per day. Monitor for withdrawal. Continue thiamine. 6. DVT prophylaxis: Addressed on anticoagulation as above. The patient is admitted to observation status. If remaining medically stable may discharge home tomorrow on DOAC therapy. Quality VTE Deep Vein Thrombosis/Pulmonary Embolism Present on Admission: Yes [facility] - Admit I confirm the patient?s Advance Care Plan is present, Code status is documented, Surrogate decision maker is in patient?s record [If Yes, STOP here]: Yes [facility] - Meds 'Current medications' to include all prescriptions, [id number] products, herbals, cannabis/cannabidiol products, and vitamin/mineral/dietary (nutritional) supplements. I have utilized all available resources to obtain, update, or review the patient?s current medications. [If Yes, STOP here]: Yes [facility] Charge Codes Initial inpatient/observation care: [id number]
[2023-09-26] MEDS: APIXABAN 5 MG TABLET 10 MG PO ×2 (17:17→20:24)
[2023-09-26] MEDS: FUROSEMIDE 20 MG/2 ML VIAL 40 MG IV (17:17)
[2023-09-26 20:26] LABS: PTT Partial Thromboplastin Tim 38 SECONDS (25.1-36.5)
[2023-09-27] VITALS (9 sets, daily range): BP systolic 109–128; BP diastolic 50–63; PULSE 62–86; RESP 16–20; TEMP 36.1–36.9; O2SAT 94–96
--- NOTE | 2023-09-27 01:58 | PC.NURSE ---
Addendum entered by Lucrecia Linton R.N. 09/27/23 06:49: Notified MD Cooper about concern for cellulitis in BLE; patient has 4+ pitting edema below the knee, hot & tender to the touch. negative Mikala's sign. new order for Clindamycin 600 mg iv once. IV abx infusing as ordered. Original Note: shift supervisor rn: Patient is AxOx4, VSS, denies pain. Patient awoke at 0100 stating I feel like I'm not getting enough oxygen, sitting at the edge of the bed. O2 saturation 95% on RA, wheezes heard bilaterally upon auscultation. Notified RT, breathing treatment given, pt stated that he felt better after breathing treatment and is resting in bed with no signs of distress. Cont tele & p/ox monitoring in place. Plan of care ongoing.
[2023-09-27] MEDS: PANTOPRAZOLE DR 40 MG TABLET PO (06:01)
[2023-09-27 06:33] LABS: Add Manual Diff / Slide Review NO; Basophils Absolute Auto 200 /uL (0-100); Basophils Percent Auto 2.2 % (0-2); Eosinophils Absolute Auto 200 /uL (0-450); Eosinophils Percent Auto 2.9 % (2-4); Hematocrit 42.2 % (41-53); Hemoglobin 14.7 g/dL (13.5-17.5); Lymphocytes Absolute Auto 1600 /uL (1100-4500); Lymphocytes Percent Auto 21.8 % (25-40); Mean Corpuscular HGB Conc 34.9 % (30-36); Mean Corpuscular Hemoglobin 32.1 PG (26-34); Mean Corpuscular Volume 91.9 fL (80-100); Monocytes Absolute Auto 500 /uL (0-900); Monocytes Percent Auto 7.4 % (3-14); Neutrophils Absolute Auto 4800 /uL (1500-7000); Neutrophils Percent Auto 65.7 % (50-75); Platelet Count 219 X10^3/uL (150-400); Red Cell Distribution Width 14.9 % (11.6-14.8); White Blood Cell Count 7.4 X10^3/uL (4.5-11.0)
[2023-09-27] MEDS: CLINDAMYCIN 600 MG/50 ML PIGGYBACK 50 MG IV (06:45)
[2023-09-27 06:48] LABS: BUN Creatinine Ratio 19.2 (6-22); Blood Urea Nitrogen 19 mg/dL (9-20); Calcium 8.5 mg/dL (8.4-10.2); Carbon Dioxide 29 mmol/L (22-32); Chloride 102 mmol/L (98-107); Estimated Glomerular Filt Rate > 60 mL/min (>60); Glucose 110 mg/dL (80-110); HEMOLYSIS < 15 (0-50); Potassium 3.3 mmol/L (3.4-5.1); Sodium 134 mmol/L (137-145)
[2023-09-27] MEDS: ALBUTEROL 2.5 MG/3 ML NEB (ADULT) INH ×3 (07:34→18:06)
[2023-09-27] MEDS: APIXABAN 5 MG TABLET 10 MG PO ×2 (09:15→20:54)
[2023-09-27] MEDS: THIAMINE 100 MG TABLET PO (09:15)
[2023-09-27] MEDS: POTASSIUM CHLORIDE 20 MEQ TAB 40 MEQ PO (09:17)
[2023-09-27] MEDS: CEFAZOLIN VIAL 1 GM in SODIUM CHLORIDE 0.9% 100 ML IV ×2 (11:55→20:54)
--- NOTE | 2023-09-27 12:09 | P.PN_ITS ---
Subjective Subjective Date Patient Seen: 09/27/23 Time Patient Seen: 08:50 Interval history: The patient was noted to have increasing redness and pain in both feet overnight. He had noted this prior to admission but stated that it was worse. He was started on IV clindamycin. He has a penicillin allergy that he states was from childhood, and is unaware of the reaction but has avoided it since. He has no other complaints. He has had a net 2 L diuresis since admission. Exam Vital Signs (past 8 hours): - 09/27/23 05:51 09/27/23 07:39 09/27/23 08:00 Temperature 97.0 F L 96.9 F L Pulse Rate 82 64 66 Respiratory Rate 18 18 20 Blood Pressure 109/63 119/50 L Pulse Oximetry 96 94 94 Oxygen Delivery Method Room Air Oxygen Flow Rate 0 0 09/27/23 11:58 Temperature Pulse Rate Respiratory Rate Blood Pressure Pulse Oximetry 95 Oxygen Delivery Method Oxygen Flow Rate Oxygen Delivery Method Room Air Oxygen Flow Rate 0 Narrative Exam Narrative: GENERAL: This is a well-nourished, well-developed patient, in no apparent distress. EYES: Pupils equal round and reactive. Extraocular motions intact. No scleral icterus. No injection or drainage. ENT: Mucous membranes pink and moist. NECK: Trachea midline. No JVD, bruits or lymphadenopathy. Supple, nontender, no meningeal signs. CARDIOVASCULAR: Regular rate and rhythm without murmurs, gallops, or rubs. RESPIRATORY: Clear to auscultation. GASTROINTESTINAL: Abdomen soft, non-tender, nondistended. EXTREMITIES: 1+ edema. NEUROLOGIC: Alert, oriented, speech fluent, full upper and lower motor strength, no focal deficits evident. DERMATOLOGIC: Tender erythematous rash from feet to just above the ankle bilaterally. Objective Labs 09/27/23 05:50 09/27/23 05:50 Labs: Laboratory Results - last 24 hr 09/26/23 09/26/23 09/27/23 14:03 20:10 05:50 WBC 7.4 RBC 4.60 Hgb 14.7 Hct 42.2 MCV 91.9 MCH 32.1 MCHC 34.9 RDW 14.9 H Plt Count 219 Neut % (Auto) 65.7 Lymph % (Auto) 21.8 L [place] % (Auto) 7.4 Eos % (Auto) 2.9 Baso % (Auto) 2.2 H Neut # (Auto) 4800 Lymph # (Auto) 1600 [place] # (Auto) 500 Eos # (Auto) 200 Baso # (Auto) 200 H APTT 184 H* 38 H D Sodium 134 L Potassium 3.3 L Chloride 102 Carbon Dioxide 29 BUN 19 Creatinine 0.99 Estimated GFR > 60 BUN/Creatinine Ratio 19.2 Glucose 110 Calcium 8.5 [facility] Medical History Tobacco abuse Surgical History History of bilateral hip replacements Family History Mother Cancer Father Heart attack Social History household members: spouse Smoking Status: Current every day smoker alcohol intake: current substance use type: marijuana Assessment & Plan Assessment & Plan narrative: Assessment & Plan narrative: 1. Acute recurrent pulmonary embolism, provoked following a long car ride over 3 days. Transitioned from IV heparin started on admission to apixaban 10 mg b.i.d. x 7 days through 10/03/2023, then 5 mg b.i.d.. Lower extremity Doppler showed no evidence of deep venous thrombosis. 2. Bilateral lower extremity cellulitis, the setting of venous insufficiency from recent long car trip. Transition to IV cefazolin 1 g IV every 8 hours, and switched to oral cephalexin at discharge. 3. Bilateral lower extremity edema due to venous insufficiency. No evidence of DVT. Much improved following IV furosemide over night. 4. Right upper lobe pulmonary nodule. Outpatient follow-up advised as a potential underlying malignancy contributing to recurrent pulmonary embolism. 5. Chronic obstructive pulmonary disease. Continue routine nebulizers and inhalers. Clinically stable without hypoxemia. 6. Chronic tobacco use. Smoking cessation advised. 7. Alcohol use. 2-3 beers reported per day. Monitor for withdrawal. Continue thiamine. 8. DVT prophylaxis: Addressed on anticoagulation as above. The patient was admitted to observation status but changed to inpatient status 09/27/2023 as he will require at least 2 midnights of inpatient level care, with the plan to discharge on oral antibiotics and DOAC therapy. Quality VTE Deep Vein Thrombosis/Pulmonary Embolism Present on Admission: Yes [facility] Charge codes Subsequent inpatient/observation care: 43624
--- NOTE | 2023-09-27 14:53 | CM.DANOTE ---
DCP Note- brief Pt is a 68yo M here from out of town on a road trip. Pt has a PMH of COPD, chronic smoking, presented to the ED for progressive bilateral edema that has worsened the past 3 days. Lives in [place]. Per chart, spouse Citlaly listed as emergency contact. PCP None listed Payer [employer] reviewed EMR. Per hospitalist, pt also found to have cellulitis on ankles. anticipate dc tomorrow on PO abx, no obvious CM needs. Currently on room air. [employer] unable to meet with pt today due to triaging needs. P: anticipate dc Thursday/when medically stable. No obvious CM/DCP needs identified at this time. CM team will continue to follow as needed. LUIS Renee Discharge Planning/Care Management CM Discharge Assessment Start: 09/27/23 14:52 Freq: Status: Active Protocol: Document 09/27/23 14:52 (Rec: 09/27/23 14:53 [id number]) Discharge Planning Assessment Assigned Battery Assembler LUIS Whitmore DPOA/Assigned Designee Name spouseCitlaly Advance Directives? Yes Advance Directives on File No History Provided By Patient,Family Member Household Members spouse Type of transporation used prior to Drives own vehicle admit Independent with ADL's Yes Is patient alert and oriented? Yes Comment Active smoker Discharge Plan Home Referrals Initiated None needed Whiteboard Updated in Patient Room with No name and ext. # of Battery Assembler Review Status In Process Please Provide Date Initial DC 09/27/23 Assessment Was Performed Next Review Type Continued Stay Review
--- NOTE | 2023-09-27 17:17 | PC.NURSE ---
Pt had relatively uneventful day. A/O, denies discomfort Bilateral lower extremities swollen, reddened SBA to BR SL intact/patent. Call light w/in reach, bed alarm on for pt safety, Continue w/plan of care.
[2023-09-27] MEDS: FUROSEMIDE 40 MG/4 ML VIAL IV (20:54)
[2023-09-27] MEDS: BUDESONIDE 0.5 MG/2 ML NEB INH (21:07)
[2023-09-28] MEDS: CEFAZOLIN VIAL 1 GM in SODIUM CHLORIDE 0.9% 100 ML IV ×2 (02:33→11:49)
[2023-09-28 03:00] VITALS: BP 115/63; PULSE 85; RESP 16; TEMP 36.7; O2SAT 94
[2023-09-28 03:04] LABS: BUN Creatinine Ratio 19.8 (6-22); Blood Urea Nitrogen 19 mg/dL (9-20); Calcium 8.8 mg/dL (8.4-10.2); Carbon Dioxide 27 mmol/L (22-32); Chloride 101 mmol/L (98-107); Estimated Glomerular Filt Rate > 60 mL/min (>60); Glucose 120 mg/dL (80-110); HEMOLYSIS 30 (0-50); Potassium 3.8 mmol/L (3.4-5.1); Sodium 134 mmol/L (137-145)
[2023-09-28] MEDS: PANTOPRAZOLE DR 40 MG TABLET PO (06:13)
[2023-09-28] MEDS: BUDESONIDE 0.5 MG/2 ML NEB INH (07:41)
[2023-09-28] MEDS: ALBUTEROL 2.5 MG/3 ML NEB (ADULT) INH (07:41)
[2023-09-28 07:42] VITALS: PULSE 85; RESP 18; O2SAT 95
[2023-09-28 08:00] VITALS: BP 129/63; PULSE 85; RESP 16; TEMP 36.1; O2SAT 95
[2023-09-28] MEDS: APIXABAN 5 MG TABLET 10 MG PO (08:17)
[2023-09-28] MEDS: THIAMINE 100 MG TABLET PO (08:17)
[2023-09-28] MEDS: FUROSEMIDE 40 MG/4 ML VIAL IV (08:18)
[2023-09-28] MEDS: ACETAMINOPHEN 325 MG TABLET 650 MG PO (09:40)
--- NOTE | 2023-09-28 10:37 | PM.DS.1 ---
History of Present Illness History of Present Illness Date Patient Seen: 09/28/23 Time Patient Seen: 10:37 Date of Onset of Symptoms: 09/25/23 Chief complaint: lower ext edema Narrative: Admission note: 67 years old male with a past medical history of COPD, chronic smoking, pulm embolism not on anticoagulation other medical issues presents to the emergency room for progressive bilateral lower extremity edema that has worsened in the past 3 days. Apparently patient was driving the car across the country from [facility] for the past 3 days while sleeping in his vehicle with progressive increase in the lower extremity edema. Denies any chest pain shortness of breath palpitation dizziness or loss of consciousness. Denies any cough wheezing headache or upper respiratory symptoms. Denies any blurred vision. Does smoke a pack and drink 2-3 beers daily. In the ED, was noted to be tachypneic with respiration in the mid 20s. Was placed on 2 L oxygen to maintain O2 saturation in the mid 90s and on room air his O2 saturation dropped to 92%. Labs were fairly unremarkable except for a sodium of 133. Chest x-ray shows no acute process. ECG shows normal sinus rhythm. Lower extremity Doppler was negative for DVT bilaterally based on pulmonary report but a final report is pending. CT angiogram was done in the setting of elevated D-dimer levels and it is positive for pulm embolism with subsegmental and segmental embolism in the right upper middle and left upper lobe pulmonary arteries. Given the persistent symptoms, patient was admitted for observation Interval history: The patient reports that he has had a history of pulmonary embolism in the past. Review of records reveal a left upper lobe pulmonary embolism diagnosis in October 2022 associated with a left lower extremity DVT and discharged on Eliquis at that time. He also had a 1 cm spiculated nodule in the right upper lobe with follow-up imaging advised. He was transferred to the medical floor on an IV heparin infusion. Discharge Providers Provider Date of admission: 09/26/23 07:03 Discharge Date: 09/28/23 Discharge provider: Andrei Brandon DO Summary Hospital Course Discharge Diagnosis: 1. Acute recurrent pulmonary embolism, provoked following a long car ride over 3 days. Transitioned from IV heparin started on admission to apixaban 10 mg b.i.d. x 7 days through 10/03/2023, then 5 mg b.i.d.. Lower extremity Doppler showed no evidence of deep venous thrombosis. 3. Bilateral lower extremity edema due to venous insufficiency. No evidence of DVT. 4. Right upper lobe pulmonary nodule. Outpatient follow-up advised as a potential underlying malignancy contributing to recurrent pulmonary embolism. 5. Chronic obstructive pulmonary disease. Continue routine nebulizers and inhalers. Clinically stable without hypoxemia. 6. Chronic tobacco use. Smoking cessation advised. 7. Alcohol use. 2-3 beers reported per day. Monitor for withdrawal. Continue thiamine. Hospital Course: Ashley Shafer is a 68 yr old male with a medical history for only chronic tobacco abuse who presented to the ED with lower extremity swelling after driving from [place] to [place] and sleeping in their [employer].?He was admitted here recently with a similar presentation. LE US did not show DVT, but CTA did show multiple segmental and subsegmental PE. Echocardiogram was performed and showed a normal EF with mild diastolic dysfunction and no signficant valvular disease. He was not hypoxic. There was some concern for a cellulitis but his erythema was minimal, with no erythema, no change in tenderness. He has taken lasix before for LE edema per his spouse, suspected edema is acute on chronic. He was prescribed a small amount of lasix in the hospital. He was discharged with a prescription for eliquis, 10 mg BID for one week followed by 5 mg daily. He was encouraged to follow up with a PCP. He was encouraged to perform leg elevation when possible to help with edema. There was a 1.1 cm spiculated nodule noted on CT imaging, interval follow up is recommended as the size is slightly increased from a year ago during his last admission. Time Spent with Patient Time spent: Less than 30 minutes Exam Vital Signs (past 8 hours): - 09/28/23 03:00 09/28/23 07:42 09/28/23 08:00 Temperature 98.0 F 96.9 F L Pulse Rate 85 85 85 Respiratory Rate 16 18 16 Blood Pressure 115/63 129/63 Pulse Oximetry 94 95 95 Oxygen Delivery Method Room Air Oxygen Flow Rate 0 0 Oxygen Delivery Method Room Air Oxygen Flow Rate 0 Narrative Exam Narrative: GENERAL: This is a well-nourished, well-developed patient, in no apparent distress. EYES: Pupils equal round and reactive. Extraocular motions intact. No scleral icterus. No injection or drainage. ENT: Mucous membranes pink and moist. NECK: Trachea midline. No JVD, bruits or lymphadenopathy. Supple, nontender, no meningeal signs. CARDIOVASCULAR: Regular rate and rhythm without murmurs, gallops, or rubs. RESPIRATORY: Clear to auscultation. GASTROINTESTINAL: Abdomen soft, non-tender, nondistended. EXTREMITIES: 1+ pedal edema. NEUROLOGIC: Alert, oriented, speech fluent, full upper and lower motor strength, no focal deficits evident. Objective Labs 09/27/23 05:50 09/28/23 02:35 Labs: Laboratory Results - last 24 hr 09/28/23 02:35 Sodium 134 L Potassium 3.8 Chloride 101 Carbon Dioxide 27 BUN 19 Creatinine 0.96 Estimated GFR > 60 BUN/Creatinine Ratio 19.8 Glucose 120 H Calcium 8.8 PFSH Medical History Tobacco abuse Surgical History History of bilateral hip replacements Family History Mother Cancer Father Heart attack Social History household members: spouse Smoking Status: Current every day smoker alcohol intake: current substance use type: marijuana Discharge Plan Discharge Plan Patient Disposition: Home Provider Discharge Comment: You were admitted to the hospital with recurrent PE. Please continue eliquis, recommend lifelong therapy at this point given frequency of this occurrence. Please follow up with a primary care provider for ongoing management of your leg edema. For now try to keep legs elevated when resting to assist with drainage. Discharge orders & Medications Prescriptions: Continued albuterol sulfate 90 mcg/actuation HFA aerosol inhaler 2 puff inhalation Q4-6H PRN (Reason: shortness of breath or wheezing) Qty: 8.5 0RF Rx Instructions: please dispense with spacer apixaban 5 mg (74 tabs) tablets,dose pack See Rx Instructions .ROUTE .COMPLEX Qty: 74 0RF Rx Instructions: orally per package direction budesonide-formoterol [Symbicort] 160-4.5 mcg/actuation HFA aerosol inhaler 2 puff inhalation BID Qty: 10.2 3RF ipratropium-albuterol 0.5 mg-3 mg(2.5 mg base)/3 mL solution for nebulization 3 ml inhalation Q6H PRN (Reason: shortness of breath or wheezing) Qty: 180 2RF (DME) nebulizer and compressor Device See Rx Instructions .Route Qty: 1 0RF Rx Instructions: As directed (DME) nebulizer accessories Kit See Rx Instructions .Route Qty: 1 0RF Rx Instructions: As directed Discontinued prednisone 10 mg tablet See Rx Instructions .ROUTE .COMPLEX Qty: 30 0RF Rx Instructions: Day 1,2,3: 40mg PO Daily Day 4,5,6: 30mg PO Daily Day 7,8,9: 20mg PO Daily Day 10,11,12: 10mg PO Daily #30 doxycycline hyclate 100 mg tablet 100 mg PO BID Qty: 20 0RF furosemide [Lasix] 20 mg tablet 60 mg PO BID Qty: 60 0RF furosemide [Lasix] 20 mg tablet 20 mg PO BID Qty: 30 0RF furosemide [Lasix] 40 mg tablet 40 mg PO BID Qty: 60 0RF prednisone 20 mg tablet 40 mg PO DAILY Qty: 10 0RF Diet/Activity/Treatments Diet: Diet as Tolerated and Regular Activity: As tolerated no restrictions. Visit Report/Discharge Packet Instructions: DI for Pulmonary Embolism, DI for Peripheral Edema -- Bilateral Stand Alone Forms: Patient Portal/API, Stroke Signs & Symptoms Discharge Data Attending Provider: Mendez Cooper Admit Date/Time: 09/26/23 07:03 Quality VTE Deep Vein Thrombosis/Pulmonary Embolism Present on Admission: Yes
[2023-09-28 11:52] VITALS: BP 130/65; PULSE 74; RESP 20; TEMP 36.4; O2SAT 95
--- NOTE | 2023-09-28 14:34 | PC.NURSE ---
Dayshift: PIV d/c'd. Pt provided discharged education. Pt stated no questions. All belongings with patient. Called [employer]'s taxi and arranged for 1445 pickup. Pt to meet in lobby of [facility]. Pt escorted to exit via wheelchair by ELLY Schreiber and ELLY Russ.
--- NOTE | 2023-09-28 14:59 | CM.DPC ---
DCP Discharge Home Per MD, pt medically stable to discharge home today with outpt f/u and per RN pt does not have transport home to where he is staying with spouse in a hotel since they just moved here from [place] and have a [employer] with their belongings and requesting assist with transport today. LAZARO met bedside with pt and explained role and he confirms he does not have a vehicle in the parking lot and Dtr inlaw is likely at work and thinks his spouse is where they are staying at [facility] by [place] [address]. Pt states he is unsure what our financial situation currently is but agreeable with SW calling his spouse to figure out transportation. SW called [employer] and confirmed they have availability today and quoted $15 from [facility] to [facility]. SW called spouse and updated on above and she confirms that they have either muñoz or card to pay the $15 and spouse willing to meet the taxi outside of the [facility] to pay the private cost. LAZARO updated RN and they will help to coordinate time of transport with [employer] for around 1500 today. Plan: Patient to discharge today via [employer] private pay back to [facility] where he and spouse are staying temporarily with their [employer]. LUIS Dee
== END 2023-09-28 14:50 | disposition home or self-care (01) ==
LOC: ED 09-26 01:42 → AC 09-26 07:04
PROVIDERS: Internal Medicine; Admitting Provider Internal Medicine; Emergency Provider Emergency Medicine; Referring Provider Emergency Medicine; Visit Provider Internal Medicine
DX: I26.99 Other pulmonary embolism without acute cor pulmonale (principal); R60.0 Localized edema; J44.9 Chronic obstructive pulmonary disease, unspecified; L03.116 Cellulitis of left lower limb; L03.115 Cellulitis of right lower limb; I87.2 Venous insufficiency (chronic) (peripheral); F17.210 Nicotine dependence, cigarettes, uncomplicated; Z86.711 Personal history of pulmonary embolism
CPT/HCPCS: 36415; 71045; 71275; 80048; 80053; 83605; 83880; 84484; 85025; 85379; 85610; 85730; 93005; 93970; 94640; 96365; 96366; 96367; 96375; 96376; 99285; G0378; A9270; C8929; J0690; J1644; J1940; J7613; Q9957

== ENCOUNTER 2024-02-22 18:37 | Emergency (ER) | payer OTHER, SELFPAY ==
[2023-09-26 07:13] VITALS: BMI 29.7
[2024-02-22] VITALS (7 sets, daily range): BP systolic 118–146; BP diastolic 57–67; PULSE 74–93; RESP 21–28; TEMP 36.4; O2SAT 93–99; BMI 30.1
--- NOTE | 2024-02-22 20:05 | ED_ITS ---
HPI - Skin/Abscess/Foreign Bdy General Chief complaint: Skin/Abscess/Foreign Body Stated complaint: body rash x 30days, won't go away Time Seen by Provider: 02/22/24 20:05 Source: patient and family Mode of arrival: Ambulatory Limitations: no limitations History of Present Illness HPI narrative: Patient is a 68-year-old male history of chronic tobacco use COPD history of pulmonary embolism presenting today with rash. He presents with his she reports that they just moved here from [place]. They have been driving across the country for the last 1 week and arrived tonight. She reports that he has had a rash and itching ongoing for the last 30 days. He was given Benadryl initially which she said did not really help. 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 Reports that his legs are the worst and it goes all the way up into his thighs it is on his abdomen and neck. No difficulty breathing. He can not stop itching. He is currently shivering under multiple blankets but is afebrile. He denies abdominal pain chest pain or cough. He is not on anticoagulation. She reports that he was given clot listing medicine but was never discharged home on anything I think he was discharged home on Eliquis dose pack but it was never refilled. They both report that his left leg is more swollen than it used to be. Related Data Previous Rx's Medication Instructions Recorded albuterol sulfate 90 mcg/actuation 2 puff inhalation Q4-6H PRN 01/16/21 aerosol inhaler shortness of breath or wheezing #8.5 grams budesonide-formoterol HFA 160 2 puff inhalation BID #10.2 grams 01/18/23 mcg-4.5 mcg/actuation aerosol inhaler (Symbicort) ipratropium 0.5 mg-albuterol 3 mg 3 ml inhalation Q6H PRN shortness 01/18/23 (2.5 mg base)/3 mL nebulization of breath or wheezing #180 mL soln nebulizer accessories #1 ea 01/18/23 nebulizer and compressor #1 ea 01/18/23 apixaban 5 mg (74 tabs) tablets in See Rx Instructions PO .COMPLEX 09/28/23 a dose pack #74 ea prednisone 10 mg tablet 10 mg PO DAILY #30 tabs 02/23/24 Allergies Allergy/AdvReac Type Severity Reaction Status Date / Time Penicillins Allergy Verified 11/17/22 02:22 Patient History Medical History Tobacco abuse Surgical History History of bilateral hip replacements Family History Mother Cancer Father Heart attack Social History household members: spouse Smoking Status: Current every day smoker alcohol intake: current substance use type: marijuana Smoking Status: Current every day smoker tobacco type: cigarettes alcohol intake frequency: 0-2 drinks per day Alcohol type: beer Substance Use Type: does not use Exam Initial Vital Signs Initial Vital Signs: Vital Signs Temperature 97.6 F 02/22/24 18:39 Pulse Rate 93 H 02/22/24 18:39 Respiratory Rate 28 H 02/22/24 18:39 Blood Pressure 146/67 H 02/22/24 18:39 Pulse Oximetry 96 02/22/24 18:39 Oxygen Delivery Method Room Air 02/22/24 18:39 GENERAL: Alert 68-year-old male shivering under multiple blank and in no acute distress. HEENT: Head atraumatic,EOMI, pupils reactive, face symmetric, moist mucous membranes CARDIOVASCULAR: Regular rate and rhythm without murmurs, rubs or gallops. RESPIRATORY: Breath sounds equal bilaterally, no wheezes rales or rhonchi. ABDOMEN: Soft, nontender. Normoactive bowel sounds all 4 quadrants. No guarding or rebound. EXTREMITIES: Normal range of motion, no clubbing or edema. Neurovascularly intact NEUROLOGICAL: Alert and oriented x4.Normal gait and speech. Cranial nerves II through XII grossly intact. SKIN: Significantly dry skin areas of bleeding on both legs mild erythema. He does have some urticaria and areas of erythema on his abdomen in the back of his neck as well. Course Orders Ordered: ED Orders 02/22/24 20:15 US periph venous low extrem bi Stat 02/22/24 20:18 Chest [XR chest 1V] Stat EKG-12 Lead Stat 02/22/24 20:25 BNP [NT-proBNP (BNP-Adult 18+)] Stat CBC Auto Diff [Complete Blood Count AUTO DIFF] Stat CMP [Comprehensive Metabolic Panel] Stat Lactate (Lactic Acid) Stat Troponin & CK Cardiac Panel Stat 02/22/24 20:51 Blood Culture Stat 02/22/24 23:29 CT angio chest PE protocol Stat Discontinued Medications Hydrocodone Bitart/Acetaminophen (Hydrocodone/Acet 5/325 Tablet) 1 tab PO NOW ONE Stop: 02/22/24 20:16 Last Admin: 02/22/24 20:26 Dose: 1 tab Documented By: SARAN Methylprednisolone (Methylprednisolone 125 Mg/2 Ml Vial) 125 mg IV NOW ONE Stop: 02/22/24 20:16 Last Admin: 02/22/24 20:26 Dose: 125 mg Documented By: SARAN Vital Signs Vital signs: Vital Signs - 8 hr 02/22/24 18:39 02/22/24 21:39 02/22/24 21:39 Temperature 97.6 F Pulse Rate 93 H 80 Respiratory Rate 28 H 21 Blood Pressure 146/67 H 131/60 Pulse Oximetry 96 96 Oxygen Delivery Method Room Air Room Air 02/22/24 22:00 02/22/24 22:00 02/22/24 22:30 Temperature Pulse Rate 79 Respiratory Rate 24 Blood Pressure 120/58 L 118/60 Pulse Oximetry 93 Oxygen Delivery Method Room Air 02/22/24 22:30 02/22/24 23:00 02/22/24 23:00 Temperature Pulse Rate 82 77 Respiratory Rate 23 Blood Pressure 126/59 L Pulse Oximetry 94 94 Oxygen Delivery Method Room Air Room Air 02/22/24 23:30 02/22/24 23:30 02/22/24 23:50 Temperature Pulse Rate 74 77 Respiratory Rate 22 Blood Pressure 121/57 L Pulse Oximetry 95 99 Oxygen Delivery Method Room Air 02/22/24 23:50 02/23/24 00:00 02/23/24 00:00 Temperature Pulse Rate 74 Respiratory Rate 22 Blood Pressure 140/66 121/56 L Pulse Oximetry 94 Oxygen Delivery Method 02/23/24 00:30 02/23/24 00:30 Temperature 97.8 F Pulse Rate 70 Respiratory Rate 21 Blood Pressure 112/55 L Pulse Oximetry 94 Oxygen Delivery Method Room Air MDM - Skin/Abscess/Foreign Bdy Lab Data 02/22/24 20:25 02/22/24 20:25 Labs: Lab Results 11/18/24 Range/Units 20:25 WBC 8.1 (4.5-11.0) X10^3/uL RBC 4.29 L (4.5-5.9) X10^6/uL Hgb 13.8 (13.5-17.5) g/dL Hct 40.0 L (41-53) % MCV 93.3 (80-100) fL MCH 32.0 (26-34) PG MCHC 34.4 (30-36) % RDW 13.8 (11.6-14.8) % Plt Count 266 (150-400) X10^3/uL Neut % (Auto) 69.9 (50-75) % Lymph % (Auto) 14.1 L (25-40) % [place] % (Auto) 6.2 (3-14) % Eos % (Auto) 8.3 H (2-4) % Baso % (Auto) 1.5 (0-2) % Neut # (Auto) 5600 (7119-5605) /uL Lymph # (Auto) 1100 (6873-8628) /uL [place] # (Auto) 500 (0-900) /uL Eos # (Auto) 700 H (0-450) /uL Baso # (Auto) 100 (0-100) /uL Sodium 136 L (137-145) mmol/L Potassium 3.6 (3.4-5.1) mmol/L Chloride 108 H (98-107) mmol/L Carbon Dioxide 27 (22-32) mmol/L BUN 14 (9-20) mg/dL Creatinine 0.85 (0.66-1.25) mg/dL Estimated GFR > 60 (>60) mL/min BUN/Creatinine Ratio 16.5 (6-22) Glucose 115 H (80-110) mg/dL Lactate 1.5 (0.7-2.1) mmol/L Calcium 9.1 (8.4-10.2) mg/dL Total Bilirubin 0.7 (0.2-1.3) mg/dL AST 26 (17-59) IU/L ALT 18 (<50) IU/L Alkaline Phosphatase 96 (38-126) U/L Total Creatine Kinase 166 (55-170) U/L Troponin I < 0.012 (0.01-0.034) ng/mL NT-Pro-B Natriuret Pep 442 H (<125) pg/mL Total Protein 6.3 (6.3-8.2) g/dL Albumin 3.4 L (3.5-5.0) g/dL Globulin 2.9 (1.7-4.1) g/dL Albumin/Globulin Ratio 1.2 (1.0-2.8) Imaging Data Chest x-ray: Radiologist's Impression: PROCEDURE: XR CHEST 1V INDICATIONS: cough TECHNIQUE: One view of the chest was acquired. COMPARISON: [facility], XR CHEST 1V, 09/26/2023, 1:06. FINDINGS: Surgical changes and devices: None. Lungs and pleura: Asymmetric left hemidiaphragm elevation, chronic. No focal consolidation, effusion, or pneumothorax. Mediastinum: Mediastinal contours appear normal. Heart size is normal. Bones and chest wall: No suspicious bony lesions. Overlying soft tissues appear unremarkable. IMPRESSION: No acute cardiopulmonary abnormality is seen. Dictated by: Scarlet Sosa M.D. on 02/22/2024 at 21:10 US - DVT: Radiologist's Impression: PROCEDURE: US PERIP VENOUS LOW EXTREM BI INDICATIONS: swelling hx PE TECHNIQUE: Real-time imaging, as well as color and pulse Doppler interrogation, were performed of the deep veins of both legs from the inguinal ligament to the popliteal fossa, with documentation of the visualized calf veins. COMPARISON: [facility], US PERIPH VENOUS LOW EXTREM BI, 09/26/2023, 3:49. FINDINGS: Right: The common femoral, femoral, popliteal, and the visualized calf veins are normally compressible, and free of intraluminal thrombus. Color and pulse Doppler demonstrate normal phasic intravascular flow. There is normal augmentation response to distal compression maneuver. Left: The common femoral, femoral, popliteal, and the visualized calf veins are normally compressible, and free of intraluminal thrombus. Color and pulse Doppler demonstrate normal phasic intravascular flow. There is normal augmentation response to distal compression maneuver. Mild subcutaneous edema in the lower legs bilaterally. IMPRESSION: No DVT in either lower extremity. Mild bilateral subcutaneous edema. Preliminary report conveyed by the mobile practice lead to the ordering provider. Dictated by: Scarlet Sosa M.D. on 02/22/2024 at 23:14 CT scan - chest: Radiologist's Impression: PROCEDURE: CT ANGIO CHEST PE PROTOCOL INDICATIONS: hx of pe no longer taking meds TECHNIQUE: After the administration of intravenous contrast, 2 mm thick sections acquired from the pulmonary apices to the posterior costophrenic angles. 3-dimensional maximum intensity projection (MIP) coronal and sagittal reformats were then acquired through the thorax. For radiation dose reduction, the following was used: automated exposure control, adjustment of mA and/or kV according to patient size. COMPARISON: [facility], CT, CT ANGIO CHEST PE PROTOCOL, 09/26/2023, 5:43. FINDINGS: Image quality: Diagnostic. Pulmonary arteries: Pulmonary arteries are normal in size, and demonstrate no intraluminal filling defects to suggest central pulmonary embolism. Resolution of right-sided pulmonary emboli. Lower Neck: No enlarged lymph nodes. Thyroid: Normal CT appearance. Axillae: No enlarged lymph nodes. Chest Wall: Unremarkable. Bones: Remote, well-healed sternal fracture. Ankylosis of mid and lower thoracic vertebral bodies anteriorly. Lungs and Pleura: Subpleural spiculated right lateral apical lung nodule. Gravitational changes along the left major fissure. Bilateral central bronchial wall thickening. Asymmetric left hemidiaphragm elevation. Mild centrilobular emphysematous change. No acute ground-glass opacities or alveolar consolidations. No pleural effusion or pneumothorax. Heart: Heart size is normal. No pericardial effusion. Heavy coronary artery calcification. Thoracic Vessels: No aortic aneurysm. Mediastinum and Donna: No enlarged lymph nodes. Esophagus: No wall thickening. No hiatal hernia. Upper Abdomen: Punctate nonobstructing right intrarenal calculus. Visible portions of upper abdominal organs are otherwise normal. IMPRESSION: No pulmonary embolus. No acute pulmonary parenchymal pathology. Stable spiculated right apical lung nodule for which continued follow-up is recommended. Heavy coronary artery calcification. Underlying upper lobe predominant emphysema and chronic appearing bronchitis consistent with COPD. Dictated by: Scarlet Sosa M.D. on 02/23/2024 at 0:16 ECG Data Attestation: I personally reviewed and interpreted this ECG as follows: Prior ECG tracings: available for review Interpretation: Normal sinus rhythm rate 77 WV interval 156 QRS [address] changes MDM Narrative Medical decision making narrative: MDM CC: Itching for 1 month Complicating co-morbidities: history of pulmonary embolism in September not on anticoagulation recent travel chronic smoker COPD Data collected from: and patient Medical records reviewed: Previous ED visit from September. That time patient had driven from [place] here he had a negative ultrasound ultimately had a high D- dimer got a PE scan which did show pulmonary embolism Differential considered: Cellulitis urticaria CHF DVT Exam documented above, pertinent findings include: Patient does have scaly urticaria erythematous bilateral legs abdomen back of neck. He has no conversational dyspnea or difficulty breathing. Left leg does look more swollen than right leg. He has multiple scabs but none appear infected Lab Test results independently reviewed as above. Pertinent findings: WBC 8.1 hemoglobin 13.8 hematocrit 40 platelets 266 Independently reviewed EKG as above no ischemia Imaging studies independently reviewed: CT does show right upper lobe spiculated nodule but no pulmonary embolism ultrasound no DVT Chest x-ray no acute cardiopulmonary process Consultations: None Treatments: Solu-Medrol, [place] Re-evaluations: Patient reports improvement in pruritus after Solu-Medrol. I do think he is having some sort of allergic type reaction sort of atopic dermatitis. I do not think he has a superimposed cellulitis. Discussion: 68-year-old male history of pulmonary embolism after recent travel across the country with increased left leg swelling along with ongoing pruritic rash. There is concern for recurrent DVT and possible concurrent cellulitis versus eczema like dry skin. Ultrasound does not show any evidence of DVT however this is how he presented when he had his pulmonary embolism. CT was done which did rule out pulmonary embolism but does have a spiculated mass in the right upper lobe. I have spoken with patient and at length about need for follow-up for his pulmonary nodule. He was a smoker in the certainly a risk for cancer. Which would explain why he had a pulmonary embolism after driving across country. At this time rashes unexplained although I think it is an atopic dermatitis. I do not think he has any sort of cellulitis he has no leukocytosis or fever. Put him on a long steroid taper recommended Benadryl as well. I do not think he needs antibiotics at this time. Discharge Plan Departure Patient Disposition: Home Clinical Impression: Pulmonary nodule, Rash Instructions: DI for Atopic Dermatitis-Adult Activity Restrictions/Additional Instructions: *You have been diagnosed with rash and lung nodule *What to do: At this time I am not sure what is causing your rash may the prednisone helps it some. You also or have a lung spot in the right upper lobe it is spiculated and certainly concerning. It needs to be closely monitored you need follow-up with a primary care provider in repeat imaging in 2-3 months *Continue to take medications as directed Prednisone 40 mg once a day for 3 days, 30 mg once a day for 3 days, 20 mg once a day for 3 days, 10 mg once a day for 3 days Benadryl 25-50 mg every 6 hours as needed for itching *Follow up with your primary care provider in 2-3 days or call [phone] *Return to ER if you should have increasing redness fevers pain shortness of breath or any new, worsening or concerning symptoms Prescriptions: New prednisone 10 mg tablet 10 mg PO DAILY Qty: 30 0RF Rx Instructions: day 1-3: 40 mg once a day day 4-6: 30 mg once a day day 7-9: 20 mg once a day day 10-12: 10 mg once a day No Action albuterol sulfate 90 mcg/actuation HFA aerosol inhaler 2 puff inhalation Q4-6H PRN (Reason: shortness of breath or wheezing) Qty: 8.5 0RF Rx Instructions: please dispense with spacer apixaban 5 mg (74 tabs) tablets,dose pack See Rx Instructions .ROUTE .COMPLEX Qty: 74 0RF Rx Instructions: orally per package direction budesonide-formoterol [Symbicort] 160-4.5 mcg/actuation HFA aerosol inhaler 2 puff inhalation BID Qty: 10.2 3RF ipratropium-albuterol 0.5 mg-3 mg(2.5 mg base)/3 mL solution for nebulization 3 ml inhalation Q6H PRN (Reason: shortness of breath or wheezing) Qty: 180 2RF (DME) nebulizer and compressor Device See Rx Instructions .Route Qty: 1 0RF Rx Instructions: As directed (DME) nebulizer accessories Kit See Rx Instructions .Route Qty: 1 0RF Rx Instructions: As directed Stand Alone Forms: Patient Portal/API/Survey
--- NOTE | 2024-02-22 20:15 | DI.US.S_ITS ---
PROCEDURE: US PERIPH VENOUS LOW EXTREM BI INDICATIONS: swelling hx PE TECHNIQUE: Real-time imaging, as well as color and pulse Doppler interrogation, were performed of the deep veins of both legs from the inguinal ligament to the popliteal fossa, with documentation of the visualized calf veins. COMPARISON: [facility], US, US PERIP VENOUS LOW EXTREM BI, 09/26/2023, 3:49. FINDINGS: Right: The common femoral, femoral, popliteal, and the visualized calf veins are normally compressible, and free of intraluminal thrombus. Color and pulse Doppler demonstrate normal phasic intravascular flow. There is normal augmentation response to distal compression maneuver. Left: The common femoral, femoral, popliteal, and the visualized calf veins are normally compressible, and free of intraluminal thrombus. Color and pulse Doppler demonstrate normal phasic intravascular flow. There is normal augmentation response to distal compression maneuver. Mild subcutaneous edema in the lower legs bilaterally. IMPRESSION: No DVT in either lower extremity. Mild bilateral subcutaneous edema. Preliminary report conveyed by the water use inspector to the ordering provider. Dictated by: Scarlet Sosa M.D. on 02/22/2024 at 23:14 Approved by: Scarlet Sosa M.D. on 02/22/2024 at 23:15
--- NOTE | 2024-02-22 20:18 | DI.RAD.S_ITS ---
PROCEDURE: XR CHEST 1V INDICATIONS: cough TECHNIQUE: One view of the chest was acquired. COMPARISON: [facility], CR, XR CHEST 1V, 09/26/2023, 1:06. FINDINGS: Surgical changes and devices: None. Lungs and pleura: Asymmetric left hemidiaphragm elevation, chronic. No focal consolidation, effusion, or pneumothorax. Mediastinum: Mediastinal contours appear normal. Heart size is normal. Bones and chest wall: No suspicious bony lesions. Overlying soft tissues appear unremarkable. IMPRESSION: No acute cardiopulmonary abnormality is seen. Dictated by: Scarlet Sosa M.D. on 02/22/2024 at 21:10 Approved by: Scarlet Sosa M.D. on 02/22/2024 at 21:11
[2024-02-22] MEDS: methylPREDNISolone 125 MG/2 ML VIAL IV (20:26)
[2024-02-22] MEDS: HYDROCODONE/ACET 5/325 TABLET 1 TAB PO (20:26)
[2024-02-22 20:48] LABS: Add Manual Diff / Slide Review NO; Basophils Absolute Auto 100 /uL (0-100); Basophils Percent Auto 1.5 % (0-2); Eosinophils Absolute Auto 700 /uL (0-450); Eosinophils Percent Auto 8.3 % (2-4); Hemoglobin 13.8 g/dL (13.5-17.5); Lymphocytes Absolute Auto 1100 /uL (1100-4500); Lymphocytes Percent Auto 14.1 % (25-40); Mean Corpuscular HGB Conc 34.4 % (30-36); Mean Corpuscular Volume 93.3 fL (80-100); Monocytes Absolute Auto 500 /uL (0-900); Monocytes Percent Auto 6.2 % (3-14); Neutrophils Absolute Auto 5600 /uL (1500-7000); Neutrophils Percent Auto 69.9 % (50-75); Platelet Count 266 X10^3/uL (150-400); Red Blood Cell Count 4.29 X10^6/uL (4.5-5.9); Red Cell Distribution Width 13.8 % (11.6-14.8); White Blood Cell Count 8.1 X10^3/uL (4.5-11.0)
[2024-02-22 20:54] LABS: Lactate (Lactic Acid) 1.5 mmol/L (0.7-2.1)
[2024-02-22 20:55] LABS: Alanine Aminotransferase 18 IU/L (<50); Albumin 3.4 g/dL (3.5-5.0); Albumin Globulin Ratio 1.2 (1.0-2.8); Alkaline Phosphatase 96 U/L (38-126); Aspartate Aminotransferase 26 IU/L (17-59); BUN Creatinine Ratio 16.5 (6-22); Bilirubin Total 0.7 mg/dL (0.2-1.3); Blood Urea Nitrogen 14 mg/dL (9-20); Calcium 9.1 mg/dL (8.4-10.2); Carbon Dioxide 27 mmol/L (22-32); Chloride 108 mmol/L (98-107); Creatine Kinase 166 U/L (55-170); Estimated Glomerular Filt Rate > 60 mL/min (>60); Globulin 2.9 g/dL (1.7-4.1); Glucose 115 mg/dL (80-110); HEMOLYSIS < 15 (0-50); Potassium 3.6 mmol/L (3.4-5.1); Sodium 136 mmol/L (137-145); Total Protein 6.3 g/dL (6.3-8.2)
[2024-02-22 21:07] LABS: Troponin I < 0.012 ng/mL (0.01-0.034)
--- NOTE | 2024-02-22 22:12 | EKG_ITS ---
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
[2024-02-22 22:19] LABS: NT-proBNP (BNP-Adult 18+) 442 pg/mL (<125)
--- NOTE | 2024-02-22 23:29 | DI.CT.S_ITS ---
PROCEDURE: CT ANGIO CHEST PE PROTOCOL INDICATIONS: hx of pe no longer taking meds TECHNIQUE: After the administration of intravenous contrast, 2 mm thick sections acquired from the pulmonary apices to the posterior costophrenic angles. 3-dimensional maximum intensity projection (MIP) coronal and sagittal reformats were then acquired through the thorax. For radiation dose reduction, the following was used: automated exposure control, adjustment of mA and/or kV according to patient size. COMPARISON: [facility], CT, CT ANGIO CHEST PE PROTOCOL, 09/26/2023, 5:43. FINDINGS: Image quality: Diagnostic. Pulmonary arteries: Pulmonary arteries are normal in size, and demonstrate no intraluminal filling defects to suggest central pulmonary embolism. Resolution of right-sided pulmonary emboli. Lower Neck: No enlarged lymph nodes. Thyroid: Normal CT appearance. Axillae: No enlarged lymph nodes. Chest Wall: Unremarkable. Bones: Remote, well-healed sternal fracture. Ankylosis of mid and lower thoracic vertebral bodies anteriorly. Lungs and Pleura: Subpleural spiculated right lateral apical lung nodule. Gravitational changes along the left major fissure. Bilateral central bronchial wall thickening. Asymmetric left hemidiaphragm elevation. Mild centrilobular emphysematous change. No acute ground-glass opacities or alveolar consolidations. No pleural effusion or pneumothorax. Heart: Heart size is normal. No pericardial effusion. Heavy coronary artery calcification. Thoracic Vessels: No aortic aneurysm. Mediastinum and Donna: No enlarged lymph nodes. Esophagus: No wall thickening. No hiatal hernia. Upper Abdomen: Punctate nonobstructing right intrarenal calculus. Visible portions of upper abdominal organs are otherwise normal. IMPRESSION: No pulmonary embolus. No acute pulmonary parenchymal pathology. Stable spiculated right apical lung nodule for which continued follow-up is recommended. Heavy coronary artery calcification. Underlying upper lobe predominant emphysema and chronic appearing bronchitis consistent with COPD. Dictated by: Scarlet Sosa M.D. on 02/23/2024 at 0:16 Approved by: Scarlet Soas M.D. on 02/23/2024 at 0:24
[2024-02-23] VITALS: BP 121/56; PULSE 74; RESP 22; O2SAT 94
[2024-02-23 00:30] VITALS: BP 112/55; PULSE 70; RESP 21; TEMP 36.6; O2SAT 94
== END 2024-02-23 00:55 | disposition home or self-care (01) ==
PROVIDERS: Emergency Provider Emergency Medicine
DX: R21 Rash and other nonspecific skin eruption (principal); R91.1 Solitary pulmonary nodule; R60.0 Localized edema; R05.9 Cough, unspecified
CPT/HCPCS: 36415; 71045; 71275; 80053; 82550; 83605; 83880; 84484; 85025; 87040; 93005; 93970; 96374; 99284; J2919; Q9967

== ENCOUNTER 2024-03-21 14:25 | Emergency (ER) | payer OTHER, SELFPAY ==
[2023-09-26 07:13] VITALS: BMI 29.7
[2024-03-21] VITALS (9 sets, daily range): BP systolic 133–161; BP diastolic 59–84; PULSE 74–90; RESP 18–27; TEMP 36.2; O2SAT 97–100; BMI 27.3
--- NOTE | 2024-03-21 14:41 | DI.RAD.S_ITS ---
PROCEDURE: XR CHEST 1V INDICATIONS: Shortness of breath TECHNIQUE: One view of the chest was acquired. COMPARISON: [facility], CR, XR CHEST 1V, 02/22/2024, 20:24. [facility], CR, XR CHEST 1V, 09/26/2023, 1:06. FINDINGS: Surgical changes and devices: None. Lungs and pleura: Mild peribronchial wall thickening. No dense airspace disease or pleural effusions. Elevation of the left hemidiaphragm as before. Mediastinum: Heart size is normal and unchanged Bones and chest wall: Degenerative changes IMPRESSION: Peribronchial thickening possibly bronchitis/atypical infection. No dense airspace disease or pleural effusion on this single view study. Dictated by: Mark Bowden M.D. on 03/21/2024 at 15:28 Approved by: Mark Bowden M.D. on 03/21/2024 at 15:29
--- NOTE | 2024-03-21 14:50 | EKG_ITS ---
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
[2024-03-21 15:15] LABS: Add Manual Diff / Slide Review NO; Basophils Absolute Auto 100 /uL (0-100); Basophils Percent Auto 1.3 % (0-2); Eosinophils Absolute Auto 200 /uL (0-450); Eosinophils Percent Auto 3.6 % (2-4); Hematocrit 41.6 % (41-53); Hemoglobin 14.3 g/dL (13.5-17.5); Lymphocytes Absolute Auto 1300 /uL (1100-4500); Lymphocytes Percent Auto 19.6 % (25-40); Mean Corpuscular HGB Conc 34.3 % (30-36); Mean Corpuscular Hemoglobin 31.9 PG (26-34); Mean Corpuscular Volume 92.8 fL (80-100); Monocytes Absolute Auto 400 /uL (0-900); Monocytes Percent Auto 6.5 % (3-14); Neutrophils Absolute Auto 4700 /uL (1500-7000); Platelet Count 275 X10^3/uL (150-400); Red Blood Cell Count 4.48 X10^6/uL (4.5-5.9); Red Cell Distribution Width 15.1 % (11.6-14.8); White Blood Cell Count 6.8 X10^3/uL (4.5-11.0)
[2024-03-21 15:35] LABS: Prothrombin Time 11.4 SECONDS (9.4-12.5)
[2024-03-21 15:43] LABS: Lactate (Lactic Acid) 1.9 mmol/L (0.7-2.1)
[2024-03-21 15:44] LABS: Alanine Aminotransferase 17 IU/L (<50); Albumin 3.9 g/dL (3.5-5.0); Albumin Globulin Ratio 1.3 (1.0-2.8); Alkaline Phosphatase 109 U/L (38-126); Aspartate Aminotransferase 24 IU/L (17-59); BUN Creatinine Ratio 16.7 (6-22); Blood Urea Nitrogen 18 mg/dL (9-20); Calcium 9.1 mg/dL (8.4-10.2); Carbon Dioxide 31 mmol/L (22-32); Chloride 105 mmol/L (98-107); Estimated Glomerular Filt Rate > 60 mL/min (>60); Glucose 106 mg/dL (80-110); HEMOLYSIS < 15 (0-50); Potassium 3.9 mmol/L (3.4-5.1); Sodium 140 mmol/L (137-145); Total Protein 6.9 g/dL (6.3-8.2)
[2024-03-21 15:56] LABS: NT-proBNP (BNP-Adult 18+) 32 pg/mL (<125); Troponin I < 0.012 ng/mL (0.01-0.034)
--- NOTE | 2024-03-21 17:25 | PC.NURSE ---
Pt reporting hip pain. MD notified.
[2024-03-21] MEDS: ACETAMINOPHEN 325 MG TABLET 650 MG PO (18:26)
--- NOTE | 2024-03-21 18:31 | ED.EXTPRO ---
HPI - Extremity Problem General Chief complaint: Extremity Problem,Nontraumatic Stated complaint: leg and feet swelling and px, cough Time Seen by Provider: 03/21/24 17:57 Source: patient Mode of arrival: Wheelchair History of Present Illness HPI Narrative: Patient is a 68-year-old male who comes in the emergency department for evaluation of bilateral lower extremity swelling however left is greater than right. He has been on Lasix in the past. He was not currently on this medication as he states he only takes it as needed but has not taken it for several months. He recently has had an extended car ride to the local area where he states he spent quite a bit of time sleeping in the car and with his legs bent. No fevers. No trauma. He was never had a blood clot in the past. His medical record show that he was on apixaban but he states he does not take any blood thinners. He does not have a primary doctor here locally as he was new to the area. No chest pain. No shortness of breath. Related Data Previous Rx's Medication Instructions Recorded albuterol sulfate 90 mcg/actuation 2 puff inhalation Q4-6H PRN 01/16/21 aerosol inhaler shortness of breath or wheezing #8.5 grams budesonide-formoterol HFA 160 2 puff inhalation BID #10.2 grams 01/18/23 mcg-4.5 mcg/actuation aerosol inhaler (Symbicort) ipratropium 0.5 mg-albuterol 3 mg 3 ml inhalation Q6H PRN shortness 01/18/23 (2.5 mg base)/3 mL nebulization of breath or wheezing #180 mL soln nebulizer accessories #1 ea 01/18/23 nebulizer and compressor #1 ea 01/18/23 apixaban 5 mg (74 tabs) tablets in See Rx Instructions PO .COMPLEX 09/28/23 a dose pack #74 ea prednisone 10 mg tablet 10 mg PO DAILY #30 tabs 02/23/24 furosemide 20 mg tablet (Lasix) 20 mg PO DAILY #30 tabs 03/21/24 Allergies Allergy/AdvReac Type Severity Reaction Status Date / Time Penicillins Allergy Childhood Verified 03/21/24 14:32 Review of Systems Review of Systems ROS Unobtainable: All systems reviewed & are unremarkable except as noted in HPI and below Patient History Medical History Tobacco abuse Surgical History History of bilateral hip replacements Family History Mother Cancer Father Heart attack Social History household members: spouse Smoking Status: Current every day smoker alcohol intake: current substance use type: marijuana Smoking Status: Current every day smoker tobacco type: cigarettes alcohol intake frequency: 0-2 drinks per day Alcohol type: beer Exam Initial Vital Signs Initial Vital Signs: Vital Signs Temperature 97.1 F L 03/21/24 14:33 Pulse Rate 86 03/21/24 14:33 Respiratory Rate 18 03/21/24 14:33 Blood Pressure 161/82 H 03/21/24 14:33 Pulse Oximetry 100 03/21/24 14:33 Oxygen Delivery Method Room Air 03/21/24 14:33 Const General: cooperative and comfortable HENMT Head: normal to inspection and normocephalic Resp Effort & Inspection: normal respiratory effort Cardio Pulses: dorsalis pedis present bilaterally Skin General: no rashes or lesions noted Neuro Sensory Exam: no sensory deficits noted Extrem General: capillary refill normal, No no calf tenderness and edema Scores Wells' Criteria for DVT Active Cancer (Treatment within 6 months): No Bedridden recently >3 days or major surgery within 4 weeks: No Calf Swelling >3cm compared to other leg: Yes Collateral (nonvericose) superficial veins present: Yes Entire leg swollen: Yes Localized tenderness along the deep vein system: Yes Pitting edema, confined to symtomatic leg: Yes Paralysis, paresis, or recent plaster immobilization of ext: Yes Previously documented DVT: No Alternative dx to DVT as likely or more likely: No Wells' criteria for DVT: 6 Course Orders Ordered: ED Orders 03/21/24 18:32 US periph venous low extrem bi Stat Discontinued Medications Acetaminophen (Acetaminophen 325 Mg Tablet) 650 mg PO NOW ONE Stop: 03/21/24 18:03 Last Admin: 03/21/24 18:26 Dose: 650 mg Documented By: Furosemide 60 mg/ Sodium (Chloride) 56 mls @ 112 mls/hr IV NOW ONE Stop: 03/21/24 18:33 Last Infusion: 03/21/24 19:26 Dose: Infused Documented By: Admin: 03/21/24 18:45 Dose: 112 mls/hr Documented By: Vital Signs Vital signs: Vital Signs - 8 hr 03/21/24 17:30 03/21/24 17:30 03/21/24 18:00 Pulse Rate 75 75 Pulse Rate [Bilateral Dorsalis Pedis] Respiratory Rate 22 20 Blood Pressure 143/66 H Pulse Oximetry 98 97 Oxygen Delivery Method 03/21/24 18:00 03/21/24 18:30 03/21/24 18:30 Pulse Rate 85 Pulse Rate [Bilateral Dorsalis Pedis] Respiratory Rate 22 Blood Pressure 133/63 154/70 H Pulse Oximetry 98 Oxygen Delivery Method 03/21/24 19:00 03/21/24 19:00 03/21/24 19:30 Pulse Rate 90 90 Pulse Rate [Bilateral Dorsalis Pedis] Respiratory Rate 23 26 H Blood Pressure 145/84 H Pulse Oximetry 97 97 Oxygen Delivery Method 03/21/24 19:30 03/21/24 20:00 03/21/24 20:00 Pulse Rate 89 Pulse Rate [Bilateral Dorsalis Pedis] 78 Respiratory Rate 21 Blood Pressure 155/68 H Pulse Oximetry 97 Oxygen Delivery Method Room Air 03/21/24 20:00 Pulse Rate Pulse Rate [Bilateral Dorsalis Pedis] Respiratory Rate Blood Pressure 140/59 L Pulse Oximetry Oxygen Delivery Method MDM - Extremity (Nontraumatic) Medical Records Attestation: I reviewed the patient's medical records. Lab Data Attestation: I reviewed the patient's lab results. 03/21/24 15:00 03/21/24 15:00 Labs: Lab Results 03/21/24 Range/Units 15:00 WBC 6.8 (4.5-11.0) X10^3/uL RBC 4.48 L (4.5-5.9) X10^6/uL Hgb 14.3 (13.5-17.5) g/dL Hct 41.6 (41-53) % MCV 92.8 (80-100) fL MCH 31.9 (26-34) PG MCHC 34.3 (30-36) % RDW 15.1 H (11.6-14.8) % Plt Count 275 (150-400) X10^3/uL Neut % (Auto) 69.0 (50-75) % Lymph % (Auto) 19.6 L (25-40) % Bulloch % (Auto) 6.5 (3-14) % Eos % (Auto) 3.6 (2-4) % Baso % (Auto) 1.3 (0-2) % Neut # (Auto) 4700 (0847-4152) /uL Lymph # (Auto) 1300 (0185-8755) /uL Bulloch # (Auto) 400 (0-900) /uL Eos # (Auto) 200 (0-450) /uL Baso # (Auto) 100 (0-100) /uL PT 11.4 (9.4-12.5) SECONDS INR 1.0 (0.9-1.3) Sodium 140 (137-145) mmol/L Potassium 3.9 (3.4-5.1) mmol/L Chloride 105 (98-107) mmol/L Carbon Dioxide 31 (22-32) mmol/L BUN 18 (9-20) mg/dL Creatinine 1.08 (0.66-1.25) mg/dL Estimated GFR > 60 (>60) mL/min BUN/Creatinine Ratio 16.7 (6-22) Glucose 106 (80-110) mg/dL Lactate 1.9 (0.7-2.1) mmol/L Calcium 9.1 (8.4-10.2) mg/dL Total Bilirubin 1.0 (0.2-1.3) mg/dL AST 24 (17-59) IU/L ALT 17 (<50) IU/L Alkaline Phosphatase 109 (38-126) U/L Troponin I < 0.012 (0.01-0.034) ng/mL NT-Pro-B Natriuret Pep 32 (<125) pg/mL Total Protein 6.9 (6.3-8.2) g/dL Albumin 3.9 (3.5-5.0) g/dL Globulin 3.0 (1.7-4.1) g/dL Albumin/Globulin Ratio 1.3 (1.0-2.8) Urine Dip Bedside Urine Glucose Negative Bedside Urine Bilirubin - Negative Bedside Urine Ketone - Negative Urine Specific Duncan 1.050 Bedside Urine Occult Blood - Negative Bedside Urine pH 5.5 Bedside Urine Protein - Negative Bedside Urine Urobilinogen - Negative Bedside Urine Nitrite - Negative Bedside Urine Leukocytes - Negative Esterase Imaging Data Chest x-ray: Radiologist's Impression: PROCEDURE: XR CHEST 1V INDICATIONS: Shortness of breath TECHNIQUE: One view of the chest was acquired. COMPARISON: [facility], CR, XR CHEST 1V, 02/22/2024, 20:24. [facility], CR, XR CHEST 1V, 09/26/2023, 1:06. FINDINGS: Surgical changes and devices: None. Lungs and pleura: Mild peribronchial wall thickening. No dense airspace disease or pleural effusions. Elevation of the left hemidiaphragm as before. Mediastinum: Heart size is normal and unchanged Bones and chest wall: Degenerative changes IMPRESSION: Peribronchial thickening possibly bronchitis/atypical infection. No dense airspace disease or pleural effusion on this single view study. US - DVT: Radiologist's Impression: PROCEDURE: US PERIP VENOUS LOW EXTREM BI INDICATIONS: Fell for DVT TECHNIQUE: Real-time imaging, as well as color and pulse Doppler interrogation, were performed of the deep veins of both legs from the inguinal ligament to the popliteal fossa, with documentation of the visualized calf veins. COMPARISON: [facility], US, US PERIP VENOUS LOW EXTREM BI, 02/22/2024, 22:20. FINDINGS: Right: The common femoral, femoral, popliteal, and the visualized calf veins are normally compressible, and free of intraluminal thrombus. Color and pulse Doppler demonstrate normal phasic intravascular flow. There is normal augmentation response to distal compression maneuver. Left: The common femoral, femoral, popliteal, and the visualized calf veins are normally compressible, and free of intraluminal thrombus. Color and pulse Doppler demonstrate normal phasic intravascular flow. There is normal augmentation response to distal compression maneuver. Soft tissue swelling with soft tissue edema can be seen. This limits evaluation. IMPRESSION: No findings of deep venous thrombosis in either lower extremity. Note: Concordant preliminary findings given by the kitchen bath designer upon the completion of the examination to Dr. Leblanc at 6:40 p.m. on March 21, 2024. ECG Data Attestation EKG: I personally reviewed and interpreted this ECG as follows: Interpretation: Sinus rhythm Ventricular rate of 83 Normal axis Normal QRS Normal QTC No ST T wave changes MDM Narrative Medical decision making narrative: Patient does have bilateral lower extremity edema with left being greater than right. Ultrasounds are negative for DVT. He was no chest pain no shortness of breath. He was not clinically in heart failure. He was no diagnosis of heart failure. According to his report he was not on anticoagulation. His BNP is negative, no edema noted on the chest x-ray. Troponin is negative. I suspect that his swelling is because of his extended car rides recently. Will place the patient back on Lasix. He understands how to take this medication and can take it as needed. He was also given a phone number that he can contact for establishing a primary doctor here locally. He was given return precautions and follow-up instructions. He expressed understanding and agreement with plan. Discharge Plan Departure Patient Disposition: Home Clinical Impression: Lower extremity edema Instructions: DI for Peripheral Edema -- Bilateral Activity Restrictions/Additional Instructions: I do recommend during business hours you contact [phone] to help you establish a primary doctor in the local area. Take the Lasix/furosemide like we discussed. Continue the rest of your medicines as directed. Return to the emergency department for new symptoms. Prescriptions: New furosemide [Lasix] 20 mg tablet 20 mg PO DAILY Qty: 30 3RF No Action albuterol sulfate 90 mcg/actuation HFA aerosol inhaler 2 puff inhalation Q4-6H PRN (Reason: shortness of breath or wheezing) Qty: 8.5 0RF Rx Instructions: please dispense with spacer apixaban 5 mg (74 tabs) tablets,dose pack See Rx Instructions .ROUTE .COMPLEX Qty: 74 0RF Rx Instructions: orally per package direction budesonide-formoterol [Symbicort] 160-4.5 mcg/actuation HFA aerosol inhaler 2 puff inhalation BID Qty: 10.2 3RF ipratropium-albuterol 0.5 mg-3 mg(2.5 mg base)/3 mL solution for nebulization 3 ml inhalation Q6H PRN (Reason: shortness of breath or wheezing) Qty: 180 2RF (DME) nebulizer and compressor Device See Rx Instructions .Route Qty: 1 0RF Rx Instructions: As directed (DME) nebulizer accessories Kit See Rx Instructions .Route Qty: 1 0RF Rx Instructions: As directed prednisone 10 mg tablet 10 mg PO DAILY Qty: 30 0RF Rx Instructions: day 1-3: 40 mg once a day day 4-6: 30 mg once a day day 7-9: 20 mg once a day day 10-12: 10 mg once a day Referrals: Miscellaneous,Doctor, MD [Primary Care Provider] - Stand Alone Forms: Patient Portal/API/Survey
--- NOTE | 2024-03-21 18:32 | DI.US.S_ITS ---
PROCEDURE: US PERIP VENOUS LOW EXTREM BI INDICATIONS: Fell for DVT TECHNIQUE: Real-time imaging, as well as color and pulse Doppler interrogation, were performed of the deep veins of both legs from the inguinal ligament to the popliteal fossa, with documentation of the visualized calf veins. COMPARISON: [facility], US, US [facility] VENOUS LOW EXTREM BI, 02/22/2024, 22:20. FINDINGS: Right: The common femoral, femoral, popliteal, and the visualized calf veins are normally compressible, and free of intraluminal thrombus. Color and pulse Doppler demonstrate normal phasic intravascular flow. There is normal augmentation response to distal compression maneuver. Left: The common femoral, femoral, popliteal, and the visualized calf veins are normally compressible, and free of intraluminal thrombus. Color and pulse Doppler demonstrate normal phasic intravascular flow. There is normal augmentation response to distal compression maneuver. Soft tissue swelling with soft tissue edema can be seen. This limits evaluation. IMPRESSION: No findings of deep venous thrombosis in either lower extremity. Note: Concordant preliminary findings given by the superintendent pressure upon the completion of the examination to Dr. Leblanc at 6:40 p.m. on March 21, 2024. Dictated by: Andi Suarez M.D. on 03/21/2024 at 18:52 Approved by: Andi Suarez M.D. on 03/21/2024 at 18:53
[2024-03-21] MEDS: FUROSEMIDE 60 MG in SODIUM CHLORIDE 0.9% 50 ML 112 MG IV (18:45)
== END 2024-03-21 20:37 | disposition home or self-care (01) ==
PROVIDERS: Emergency Medicine; Emergency Provider Emergency Medicine
DX: R60.0 Localized edema (principal)
CPT/HCPCS: 36415; 71045; 80053; 81003; 83605; 83880; 84484; 85025; 85610; 93005; 93970; 96365; 99284; J1940

== ENCOUNTER 2024-04-04 20:56 | Observation (INO) | payer OTHER, SELFPAY ==
[2023-09-26 07:13] VITALS: BMI 29.7
[2024-04-04] VITALS (7 sets, daily range): BP systolic 123–136; BP diastolic 57–65; PULSE 82–98; RESP 18–30; TEMP 36.8; O2SAT 94–95; BMI 29.7
--- NOTE | 2024-04-04 21:13 | DI.RAD.S_ITS ---
PROCEDURE: XR CHEST 1V INDICATIONS: Shortness of breath TECHNIQUE: One view of the chest was acquired. COMPARISON: [facility], , XR CHEST 1V, 03/21/2024, 14:58. FINDINGS: Surgical changes and devices: None. Lungs and pleura: No significant pleural effusion pneumothorax. Medial left lung base hazy opacity.. Mediastinum: Mediastinal contours appear normal. Heart size is normal. Bones and chest wall: No suspicious bony lesions. Overlying soft tissues appear unremarkable. IMPRESSION: Compared to prior radiograph 03/21/2024, medial left lung base hazy opacity. Finding may represent atelectasis, aspiration or pneumonia in the appropriate clinical setting. Approved by: Leena Douglas M.D.,Ph.D. on 04/04/2024 at 21:56
--- NOTE | 2024-04-04 21:13 | EKG_ITS ---
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
[2024-04-04 21:23] LABS: Add Manual Diff / Slide Review NO; Basophils Absolute Auto 100 /uL (0-100); Basophils Percent Auto 0.5 % (0-2); Eosinophils Absolute Auto 0 /uL (0-450); Hematocrit 37.7 % (41-53); Lymphocytes Absolute Auto 1100 /uL (1100-4500); Lymphocytes Percent Auto 6.1 % (25-40); Mean Corpuscular HGB Conc 34.4 % (30-36); Mean Corpuscular Hemoglobin 31.5 PG (26-34); Mean Corpuscular Volume 91.7 fL (80-100); Monocytes Absolute Auto 1100 /uL (0-900); Monocytes Percent Auto 6.1 % (3-14); Neutrophils Absolute Auto 15700 /uL (1500-7000); Neutrophils Percent Auto 87.3 % (50-75); Platelet Count 297 X10^3/uL (150-400); Red Blood Cell Count 4.11 X10^6/uL (4.5-5.9); Red Cell Distribution Width 14.6 % (11.6-14.8)
[2024-04-04] MEDS: ALBUTEROL/IPRATROPIUM 3 ML AMPUL INH (21:30)
[2024-04-04 21:31] LABS: INR 1.3 (0.9-1.3); Prothrombin Time 14.5 SECONDS (9.4-12.5)
[2024-04-04 21:34] LABS: Lactate (Lactic Acid) 0.9 mmol/L (0.7-2.1)
[2024-04-04 21:35] LABS: Alanine Aminotransferase 19 IU/L (<50); Albumin 3.4 g/dL (3.5-5.0); Albumin Globulin Ratio 0.9 (1.0-2.8); Alkaline Phosphatase 149 U/L (38-126); Aspartate Aminotransferase 29 IU/L (17-59); BUN Creatinine Ratio 10.5 (6-22); Bilirubin Total 1.6 mg/dL (0.2-1.3); Blood Urea Nitrogen 11 mg/dL (9-20); Carbon Dioxide 26 mmol/L (22-32); Chloride 98 mmol/L (98-107); Estimated Glomerular Filt Rate > 60 mL/min (>60); Globulin 3.6 g/dL (1.7-4.1); Glucose 125 mg/dL (80-110); HEMOLYSIS < 15 (0-50); Potassium 3.4 mmol/L (3.4-5.1); Sodium 130 mmol/L (137-145)
[2024-04-04 21:47] LABS: NT-proBNP (BNP-Adult 18+) 335 pg/mL (<125); Troponin I < 0.012 ng/mL (0.01-0.034)
[2024-04-04 22:07] LABS: Influenza A - CEPHEID Flu A NEGATIVE (NEGATIVE); Influenza B - CEPHEID Flu B NEGATIVE (NEGATIVE); Respiratory Syncytial Virus Negative (Negative)
[2024-04-04 22:09] LABS: COVID-19 CEPHEID 4-PLEX PCR Negative (Negative)
[2024-04-05] VITALS (10 sets, daily range): BP systolic 111–142; BP diastolic 46–74; PULSE 66–84; RESP 14–34; TEMP 35.6–36.8; O2SAT 93–96; BMI 29.7
--- NOTE | 2024-04-05 | ED_ITS ---
HPI - SOB/Dyspnea General Chief Complaint: Shortness of Breath/Dyspnea Stated Complaint: flu like symtoms Time Seen by Provider: 04/04/24 22:59 Source: patient, RN notes reviewed and old records reviewed Mode of arrival: Wheelchair Limitations: no limitations History of Present Illness HPI Narrative: 68-year-old male history of COPD, chronic tobacco use, prior pulmonary embolism not currently on anticoagulation who presents with difficulty breathing. Patient's was admitted earlier today for influenza A. Patient states he has maybe felt sort of feverish she has had a cough with green productive sputum he denies any chest pain he states he has felt a little bit short of breath. Denies any syncope, no nausea or vomiting no issues with bowel movements or urination. He states no swelling in his extremities recently. Was here on 03/21/2024 and had lower extremity edema at that time. Patient states he uses inhaler but otherwise does not take any medications. States no prior surgeries. Reports an allergy to penicillin states he had swelling but states he can take amoxicillin another antibiotics that are similar. States pack of tobacco lasts about 3 days, has 1-2 beers daily denies any recreational drugs. States he does not have a primary care physician and that his obtains his inhaler for him. Related Data Previous Rx's Medication Instructions Recorded albuterol sulfate 90 mcg/actuation 2 puff inhalation Q4-6H PRN 01/16/21 aerosol inhaler shortness of breath or wheezing #8.5 grams budesonide-formoterol HFA 160 2 puff inhalation BID #10.2 grams 01/18/23 mcg-4.5 mcg/actuation aerosol inhaler (Symbicort) ipratropium 0.5 mg-albuterol 3 mg 3 ml inhalation Q6H PRN shortness 01/18/23 (2.5 mg base)/3 mL nebulization of breath or wheezing #180 mL soln nebulizer accessories #1 ea 01/18/23 nebulizer and compressor #1 ea 01/18/23 apixaban 5 mg (74 tabs) tablets in See Rx Instructions PO .COMPLEX 09/28/23 a dose pack #74 ea prednisone 10 mg tablet 10 mg PO DAILY #30 tabs 02/23/24 furosemide 20 mg tablet (Lasix) 20 mg PO DAILY #30 tabs 03/21/24 Allergies Allergy/AdvReac Type Severity Reaction Status Date / Time Penicillins Allergy Childhood Verified 03/21/24 14:32 Review of Systems Review of Systems ROS Unobtainable: All systems reviewed & are unremarkable except as noted in HPI and below Patient History Medical History Tobacco abuse Surgical History History of bilateral hip replacements Family History Mother Cancer Father Heart attack Social History household members: spouse Smoking Status: Current every day smoker alcohol intake: current substance use type: marijuana Smoking Status: Current every day smoker tobacco type: cigarettes alcohol intake frequency: 0-2 drinks per day Alcohol type: beer Exam Narrative Exam Narrative: GENERAL: Alert and oriented x three, male in mild distress HEENT: Head normocephalic, atraumatic, EOMI, pupils reactive, face symmetric, moist mucous membranes NECK: Supple, full range of motion CARDIOVASCULAR: Regular rate and rhythm without murmurs, rubs or gallops. No JVD. 1+ bilateral lower extremity edema. RESPIRATORY: Breath sounds equal bilaterally, no wheezes rales or rhonchi. Mild tachypnea, no accessory muscle use. ABDOMEN: Soft, nontender. Normoactive bowel sounds all 4 quadrants. No guarding or rebound, rigidity, no mass : No CVA tenderness EXTREMITIES: Normal range of motion. Neurovascularly intact NEUROLOGICAL: Cranial nerves II through XII grossly intact. Moving all extremities SKIN: Warm, dry, no petechiae, no rashes or lesions. Initial Vital Signs Initial Vital Signs: Vital Signs Temperature 98.3 F 04/04/24 20:57 Pulse Rate 93 H 04/04/24 20:57 Respiratory Rate 26 H 04/04/24 20:57 Blood Pressure 136/65 04/04/24 20:57 Pulse Oximetry 94 04/04/24 20:57 Oxygen Delivery Method Room Air 04/04/24 20:57 Course Orders Ordered: ED Orders 04/04/24 21:13 XR chest 1V Stat EKG-12 Lead Stat Measure peak expiratory flow ONCE RT Consult Eval and Treat NOW 04/04/24 21:15 Complete Blood Count AUTO DIFF Stat Comprehensive Metabolic Panel Stat Lactate (Lactic Acid) Stat NT-proBNP (BNP-Adult 18+) Stat Prothrombin Time INR Stat Troponin I Stat 04/04/24 21:18 Covid-19 + FLU A/B + RSV - PCR Stat 04/05/24 00:14 D Dimer Stat 04/05/24 01:09 CT angio chest PE protocol Stat Discontinued Medications Albuterol/Ipratropium (Albuterol/Ipratropium 3 Ml Ampul) 3 ml INH NOW ONE Stop: 04/04/24 21:26 Last Admin: 04/04/24 21:30 Dose: 3 ml Documented By: SUSIE Azithromycin (Azithromycin 250 Mg Tablet) 500 mg PO NOW ONE Stop: 04/05/24 00:12 Last Admin: 04/05/24 00:22 Dose: 500 mg Documented By: HOMERO Ceftriaxone Sodium 1,000 mg/ (Sodium Chloride) 100 mls @ 200 mls/hr IV NOW ONE Stop: 04/05/24 00:12 Last Infusion: 04/05/24 01:07 Dose: Infused Documented By: Admin: 04/05/24 00:22 Dose: 200 mls/hr Documented By: HOMERO Methylprednisolone (Methylprednisolone 125 Mg/2 Ml Vial) 125 mg IV NOW ONE Stop: 04/05/24 00:12 Last Admin: 04/05/24 00:23 Dose: 125 mg Documented By: HOMERO Vital Signs Vital signs: Vital Signs - 8 hr 04/04/24 20:57 04/04/24 21:07 04/04/24 21:07 Temperature 98.3 F Pulse Rate 93 H 98 H Respiratory Rate 26 H 24 Blood Pressure 136/65 136/65 Pulse Oximetry 94 94 Oxygen Delivery Method Room Air Oxygen Flow Rate Fraction of Inspired Oxygen 04/04/24 21:30 04/04/24 21:30 04/04/24 21:30 Temperature Pulse Rate 89 93 H Respiratory Rate 18 26 H Blood Pressure 132/60 Pulse Oximetry 94 94 Oxygen Delivery Method Room Air Oxygen Flow Rate 0 Fraction of Inspired Oxygen 21 04/04/24 22:00 04/04/24 22:00 04/04/24 22:30 Temperature Pulse Rate 85 85 Respiratory Rate 28 H 29 H Blood Pressure 131/61 Pulse Oximetry 94 95 Oxygen Delivery Method Oxygen Flow Rate Fraction of Inspired Oxygen 04/04/24 22:30 04/04/24 23:00 04/04/24 23:00 Temperature Pulse Rate 87 Respiratory Rate 30 H Blood Pressure 134/62 123/57 L Pulse Oximetry 95 Oxygen Delivery Method Oxygen Flow Rate Fraction of Inspired Oxygen 04/04/24 23:30 04/04/24 23:30 04/05/24 00:00 Temperature Pulse Rate 82 80 Respiratory Rate 29 H 27 H Blood Pressure 130/63 Pulse Oximetry 94 93 Oxygen Delivery Method Oxygen Flow Rate Fraction of Inspired Oxygen 04/05/24 00:00 04/05/24 00:30 04/05/24 00:30 Temperature Pulse Rate 78 Respiratory Rate 29 H Blood Pressure 121/61 142/63 H Pulse Oximetry 94 Oxygen Delivery Method Oxygen Flow Rate Fraction of Inspired Oxygen 04/05/24 01:00 04/05/24 01:00 04/05/24 01:37 Temperature Pulse Rate 78 84 Respiratory Rate 26 H 34 H Blood Pressure 138/61 Pulse Oximetry 94 94 Oxygen Delivery Method Oxygen Flow Rate Fraction of Inspired Oxygen 04/05/24 02:00 04/05/24 02:30 04/05/24 02:57 Temperature 98.3 F Pulse Rate 73 73 Respiratory Rate 31 H 26 H Blood Pressure 117/74 Pulse Oximetry 94 95 Oxygen Delivery Method Oxygen Flow Rate Fraction of Inspired Oxygen MDM - SOB/Dyspnea Lab Data 04/04/24 21:15 04/04/24 21:15 Labs: Lab Results 04/04/24 04/04/24 04/04/24 Range/Units 21:13 21:15 21:18 WBC 18.0 H (4.5-11.0) X10^3/uL RBC 4.11 L (4.5-5.9) X10^6/uL Hgb 13.0 L (13.5-17.5) g/dL Hct 37.7 L (41-53) % MCV 91.7 (80-100) fL MCH 31.5 (26-34) PG MCHC 34.4 (30-36) % RDW 14.6 (11.6-14.8) % Plt Count 297 (150-400) X10^3/uL Neut % (Auto) 87.3 H (50-75) % Lymph % (Auto) 6.1 L (25-40) % [place] % (Auto) 6.1 (3-14) % Eos % (Auto) 0.0 L (2-4) % Baso % (Auto) 0.5 (0-2) % Neut # (Auto) 39677 H (6887-9161) /uL Lymph # (Auto) 1100 (9914-9504) /uL [place] # (Auto) 1100 H (0-900) /uL Eos # (Auto) 0 (0-450) /uL Baso # (Auto) 100 (0-100) /uL PT 14.5 H (9.4-12.5) SECONDS INR 1.3 (0.9-1.3) D-Dimer 1423 H (<500) ng/ml Sodium 130 L (137-145) mmol/L Potassium 3.4 (3.4-5.1) mmol/L Chloride 98 (98-107) mmol/L Carbon Dioxide 26 (22-32) mmol/L BUN 11 (9-20) mg/dL Creatinine 1.05 (0.66-1.25) mg/dL Estimated GFR > 60 (>60) mL/min BUN/Creatinine Ratio 10.5 (6-22) Glucose 125 H (80-110) mg/dL Lactate 0.9 (0.7-2.1) mmol/L Calcium 9.0 (8.4-10.2) mg/dL Total Bilirubin 1.6 H (0.2-1.3) mg/dL AST 29 (17-59) IU/L ALT 19 (<50) IU/L Alkaline Phosphatase 149 H (38-126) U/L Troponin I < 0.012 (0.01-0.034) ng/mL NT-Pro-B Natriuret Pep 335 H (<125) pg/mL Total Protein 7.0 (6.3-8.2) g/dL Albumin 3.4 L (3.5-5.0) g/dL Globulin 3.6 (1.7-4.1) g/dL Albumin/Globulin Ratio 0.9 L (1.0-2.8) SARS-CoV-2 (PCR) Negative (Negative) Influenza A (RT-PCR) Flu a negative (NEGATIVE) Influenza B (RT-PCR) Flu b negative (NEGATIVE) RSV (PCR) Negative (Negative) Imaging Data Chest x-ray: Radiologist's Impression: Ashley Shafer??68??M??1955 ? Allergy/Adv: Penicillins Close Chest X-Ray (Signed) Tatiana Douglase - 04/04/24 Vascular Ultrasound (Signed) Andi Suarez - 03/21/24 Chest X-Ray (Signed) Kal,Mark - 03/21/24 Chest CTA (Signed) Scarlet Sosa - 02/22/24 Chest X-Ray (Signed) Scarlet Sosa - 02/22/24 Vascular Ultrasound (Signed) Scarlet Sosa - 02/22/24 Telemetry Strips 09/26/23 Echocardiogram Ultrasound (Cancelled) 09/26/23 Chest CTA (Signed) Kal,Mrak - 09/26/23 Vascular Ultrasound (Signed) Kal,Mark - 09/26/23 Chest X-Ray (Signed) Ana MaríaRafael - 09/26/23 Chest CTA (Signed) Daniela,Andi - 01/18/23 Chest X-Ray (Signed) Andi Suarez - 01/18/23 Vascular Ultrasound (Signed) Andi Suarez - 12/12/22 Chest X-Ray (Signed) CordellAndi rodriguez - 12/12/22 Chest X-Ray (Signed) Delmar Taylor - 11/17/22 Chest X-Ray (Signed) Andi Suarez - 10/26/22 Chest CTA (Signed) Mayra Bruce - 10/22/22 Echocardiogram Ultrasound (Signed) Dolores Vega - 10/17/22 Telemetry Strips 10/16/22 Chest CTA (Signed) Mel Diana - 10/16/22 Vascular Ultrasound (Signed) Mel Diana - 10/16/22 Chest X-Ray (Signed) Portia Reno - 10/16/22 Chest X-Ray (Signed) Andi Suarez - 01/16/21 Launch?[address] [address] XRay Report Signed Patient: Ashley Shafer MR#: [id number] : 1955 Acct:[id number] Age/Sex: 68 / M Date of Service: 04/04/24 Loc: ED Accession Number: [id number] Procedure: XR chest 1V Ordering Provider: Analia Armas D.O. PROCEDURE: XR CHEST 1V INDICATIONS: Shortness of breath TECHNIQUE: One view of the chest was acquired. COMPARISON: [facility], , XR CHEST 1V, 03/21/2024, 14:58. FINDINGS: Surgical changes and devices: None. Lungs and pleura: No significant pleural effusion pneumothorax. Medial left lung base hazy opacity.. Mediastinum: Mediastinal contours appear normal. Heart size is normal. Bones and chest wall: No suspicious bony lesions. Overlying soft tissues appear unremarkable. IMPRESSION: Compared to prior radiograph 03/21/2024, medial left lung base hazy opacity. Finding may represent atelectasis, aspiration or pneumonia in the appropriate clinical setting. Approved by: Leena Douglas M.D.,Ph.D. on 04/04/2024 at 21:56 ECG Data Attestation: I personally reviewed and interpreted this ECG as follows: Prior ECG tracings: available for review Interpretation: Sinus rhythm rate of 91 CO 146 QRS 84 QTC of [address] elevation. Patient has prior from 03/21/2024 which appears similar. MDM Narrative Medical decision making narrative: Patient is somewhat poor historian he denies any shortness of breath currently but states he did feel little bit short of breath earlier received a DuoNeb which she found somewhat helpful. was recently admitted for influenza A and patient was upstairs with her. Labs show white count of 18 was 6.8 on 03/21/2024 hemoglobin of 13 platelets of 297 predominance of neutrophils INR is 1.3 sodium is 130 was 140 on 03/21/2024 potassium 3.4 with a chloride 98 CO2 of 26 BUN 11 creatinine 1.05 glucose of 125 bilirubin is little up at 1.6 was 1 on the 16th of this month AST ALT are normal with alk-phos of 149 troponin less than 0.012 with a BNP of 335. Ddimer was added on and is elevated at 1423. COVID/influenza/RSV is negative. Chest x-ray read left lung base hazy opacity may represent atelectasis aspiration or pneumonia. CT angio was obtained secondary to elevated D-dimer patient does not have any pulmonary emboli but does have multifocal pneumonia as well as what appears to be stable spiculated mass EKG shows sinus rhythm premature atrial complexes. No acute changes. Patient received DuoNeb, Solu-Medrol with a history of COPD and Rocephin and azithromycin department. Patient has not meet any sepsis criteria, was reportedly hypoxic upstairs while visiting with his but has not been hypoxic in the department he has not a particularly good historian but would like to bring in for observation. Spoke with Dr. Bravo, telehospitalist who accepts for observation. Discharge Plan Departure Patient Disposition: Admitted as Observation Clinical Impression: Pneumonia, COPD (chronic obstructive pulmonary disease) Admit Date/Time: 04/05/24 03:19 Admit Provider: Negrito Gonzalez
[2024-04-05] MEDS: AZITHROMYCIN 250 MG TABLET 500 MG PO (00:22)
[2024-04-05] MEDS: cefTRIAXone 1,000 MG in SODIUM CHLORIDE 0.9% 100 ML 200 MG IV (00:22)
[2024-04-05] MEDS: methylPREDNISolone 125 MG/2 ML VIAL IV (00:23)
[2024-04-05 01:03] LABS: D Dimer 1423 ng/ml (<500)
--- NOTE | 2024-04-05 01:09 | DI.CT.S_ITS ---
PROCEDURE: CT ANGIO CHEST PE PROTOCOL INDICATIONS: ? pneumonia vs PE. TECHNIQUE: After the administration of intravenous contrast, 2 mm thick sections acquired from the pulmonary apices to the posterior costophrenic angles. 3-dimensional maximum intensity projection (MIP) coronal and sagittal reformats were then acquired through the thorax. For radiation dose reduction, the following was used: automated exposure control, adjustment of mA and/or kV according to patient size. COMPARISON: [facility], CT, CT ANGIO CHEST PE PROTOCOL, 02/22/2024, 23:38. FINDINGS: Image quality: Diagnostic. Pulmonary arteries: Pulmonary arteries are normal in size, and demonstrate no intraluminal filling defects to suggest central pulmonary embolism. Lower Neck: No enlarged lymph nodes. Thyroid: No thyroid nodules which require sonographic follow up, per consensus guidelines. Axillae: No enlarged lymph nodes. Chest Wall: Unremarkable. Bones: Unremarkable. Lungs and Pleura: No pneumothorax. Trace bilateral pleural effusions left greater than right. There is redemonstration of subpleural spiculated right apical nodule, not significantly changed since 02/22/2024. New areas of consolidation predominantly in the left lower lobe, however is seen in the right upper and right lower lobe as well. Heart: Heart size is normal. No pericardial effusion. Severe coronary artery calcifications. Thoracic Vessels: No aortic aneurysm. Mediastinum and Donna: No enlarged lymph nodes. Esophagus: No wall thickening. No hiatal hernia. Upper Abdomen: Visualized upper abdomen solid organs and bowel loops appear normal. IMPRESSION: No pulmonary embolus. Compared to prior CT 02/22/2024, new multifocal areas of consolidation in the bilateral lungs is concerning for infectious process. Stable spiculated right apical lung nodule. Recommend continued follow-up. Approved by: Leena Douglas M.D.,Ph.D. on 04/05/2024 at 2:22
--- NOTE | 2024-04-05 02:50 | PC.NURSE ---
Pt ambulated through the dept with pulse ox at 93-94%
--- NOTE | 2024-04-05 06:19 | PM.HP.1 ---
History of Present Illness History of Present Illness Date Patient Seen: 04/05/24 Time Patient Seen: 02:00 Chief complaint: flu like symtoms Narrative: 68 y/o with PMH of smoking, Hx of PE, on no medications, occasionally takes 's albuterol MDI, presented short of breath, wheezy, hypoxemic with PNA. His was admitted earlier with Influenza A pneumonia. He tested negative for it. On admission quite breathless after initial treatment with steroid, bronchodilators and abx. CTA negative for PE. Few days ago had b/l leg venous doppler for legs swelling w/o evidence of DVT. [facility] Medical History Tobacco abuse Surgical History History of bilateral hip replacements Family History Mother Cancer Father Heart attack Social History household members: spouse Smoking Status: Current every day smoker alcohol intake: current substance use type: marijuana Meds Home Medications and Allergies Home Medications Medication Instructions Recorded Confirmed Type albuterol sulfate 90 mcg/actuation 2 puff inhalation Q4-6H PRN 01/16/21 04/05/24 Rx aerosol inhaler shortness of breath or wheezing #8.5 grams budesonide-formoterol HFA 160 2 puff inhalation BID #10.2 grams 01/18/23 Rx mcg-4.5 mcg/actuation aerosol inhaler (Symbicort) ipratropium 0.5 mg-albuterol 3 mg 3 ml inhalation Q6H PRN shortness 01/18/23 Rx (2.5 mg base)/3 mL nebulization of breath or wheezing #180 mL soln nebulizer accessories #1 ea 01/18/23 Rx nebulizer and compressor #1 ea 01/18/23 Rx apixaban 5 mg (74 tabs) tablets in See Rx Instructions PO .COMPLEX 09/28/23 Rx a dose pack #74 ea prednisone 10 mg tablet 10 mg PO DAILY #30 tabs 02/23/24 Rx furosemide 20 mg tablet (Lasix) 20 mg PO DAILY #30 tabs 03/21/24 04/05/24 Rx Allergies Allergy/AdvReac Type Severity Reaction Status Date / Time Penicillins Allergy Childhood Verified 03/21/24 14:32 Review of Systems Constitutional Comments: generalized weakness Cardiovascular Comments: w/o chest pain Respiratory Comments: severe shortness of breath, cough, wheezing Without hemoptysis or pleursy Exam Vital Signs (past 8 hours): - 04/04/24 22:30 04/04/24 22:30 04/04/24 23:00 Temperature Pulse Rate 85 87 Respiratory Rate 29 H 30 H Blood Pressure 134/62 Pulse Oximetry 95 95 Oxygen Delivery Method 04/04/24 23:00 04/04/24 23:30 04/04/24 23:30 Temperature Pulse Rate 82 Respiratory Rate 29 H Blood Pressure 123/57 L 130/63 Pulse Oximetry 94 Oxygen Delivery Method 04/05/24 00:00 04/05/24 00:00 04/05/24 00:30 Temperature Pulse Rate 80 78 Respiratory Rate 27 H 29 H Blood Pressure 121/61 Pulse Oximetry 93 94 Oxygen Delivery Method 04/05/24 00:30 04/05/24 01:00 04/05/24 01:00 Temperature Pulse Rate 78 Respiratory Rate 26 H Blood Pressure 142/63 H 138/61 Pulse Oximetry 94 Oxygen Delivery Method 04/05/24 01:37 04/05/24 02:00 04/05/24 02:30 Temperature Pulse Rate 84 73 73 Respiratory Rate 34 H 31 H 26 H Blood Pressure 117/74 Pulse Oximetry 94 94 95 Oxygen Delivery Method 04/05/24 02:57 04/05/24 04:24 Temperature 98.3 F Pulse Rate Respiratory Rate Blood Pressure Pulse Oximetry Oxygen Delivery Method Room Air Fraction of Inspired Oxygen 21 SaO2/FiO2 Ratio 447 Oxygen Delivery Method Room Air Oxygen Flow Rate 0 Const Other: Ill appearing, in mild respiratory distress HENMT Other: normocephalic Resp Other: poor airflow b/l, wheezy Cardio Other: tachycardic, regular Skin Other: no rashes Extrem Other: 1 + edema Objective Labs 04/04/24 21:15 04/04/24 21:15 Labs: Laboratory Results - last 24 hr 04/04/24 04/04/24 04/04/24 21:13 21:15 21:18 WBC 18.0 H RBC 4.11 L Hgb 13.0 L Hct 37.7 L MCV 91.7 MCH 31.5 MCHC 34.4 RDW 14.6 Plt Count 297 Neut % (Auto) 87.3 H Lymph % (Auto) 6.1 L [place] % (Auto) 6.1 Eos % (Auto) 0.0 L Baso % (Auto) 0.5 Neut # (Auto) 23581 H Lymph # (Auto) 1100 [place] # (Auto) 1100 H Eos # (Auto) 0 Baso # (Auto) 100 PT 14.5 H INR 1.3 D-Dimer 1423 H Sodium 130 L Potassium 3.4 Chloride 98 Carbon Dioxide 26 BUN 11 Creatinine 1.05 Estimated GFR > 60 BUN/Creatinine Ratio 10.5 Glucose 125 H Lactate 0.9 Calcium 9.0 Total Bilirubin 1.6 H AST 29 ALT 19 Alkaline Phosphatase 149 H Troponin I < 0.012 NT-Pro-B Natriuret Pep 335 H Total Protein 7.0 Albumin 3.4 L Globulin 3.6 Albumin/Globulin Ratio 0.9 L SARS-CoV-2 (PCR) Negative Influenza A (RT-PCR) Flu a negative Influenza B (RT-PCR) Flu b negative RSV (PCR) Negative Assessment & Plan Assessment and plan (1) Pneumonia: Status: Acute (2) COPD (chronic obstructive pulmonary disease): Status: Acute (3) Tobacco abuse: Status: Acute Assessment & Plan narrative: Pneumonia - Rocephin, Mucinex Suspected COPD / Smoker - Solumedrol, bronchodilators - PPI for GI prophylaxis - nicotine patch - currently does not take any medications Hx of leg DVT and PE - dopplers and CTA negative DVT prophylaxis - Lovenox Time-Based Coding :: [TOTAL MINUTES] spent with patient and on the chart (including review of chart, obtaining history, exam, reviewing outside data, placing orders, documenting exam and treatment plan, and counseling patient) on [DATE]. Quality VTE Deep Vein Thrombosis/Pulmonary Embolism Present on Admission: No
[2024-04-05] MEDS: PANTOPRAZOLE DR 20 MG TABLET PO (06:40)
[2024-04-05] MEDS: methylPREDNISolone 125 MG/2 ML VIAL 60 MG IV (08:36)
[2024-04-05] MEDS: guaiFENesin ER 600 MG TAB PO (08:36)
[2024-04-05 09:16] LABS: Add Manual Diff / Slide Review NO; Basophils Absolute Auto 0 /uL (0-100); Basophils Percent Auto 0.2 % (0-2); Eosinophils Absolute Auto 0 /uL (0-450); Hematocrit 39.8 % (41-53); Hemoglobin 13.5 g/dL (13.5-17.5); Lymphocytes Absolute Auto 600 /uL (1100-4500); Lymphocytes Percent Auto 4.5 % (25-40); Mean Corpuscular HGB Conc 33.8 % (30-36); Mean Corpuscular Hemoglobin 30.9 PG (26-34); Mean Corpuscular Volume 91.6 fL (80-100); Monocytes Absolute Auto 200 /uL (0-900); Monocytes Percent Auto 1.5 % (3-14); Neutrophils Absolute Auto 12300 /uL (1500-7000); Neutrophils Percent Auto 93.8 % (50-75); Platelet Count 288 X10^3/uL (150-400); Red Blood Cell Count 4.35 X10^6/uL (4.5-5.9); Red Cell Distribution Width 14.8 % (11.6-14.8); White Blood Cell Count 13.1 X10^3/uL (4.5-11.0)
[2024-04-05 09:27] LABS: BUN Creatinine Ratio 15.9 (6-22); Blood Urea Nitrogen 13 mg/dL (9-20); Calcium 8.9 mg/dL (8.4-10.2); Carbon Dioxide 25 mmol/L (22-32); Chloride 102 mmol/L (98-107); Estimated Glomerular Filt Rate > 60 mL/min (>60); Glucose 152 mg/dL (80-110); HEMOLYSIS 18 (0-50); Sodium 135 mmol/L (137-145)
--- NOTE | 2024-04-05 11:07 | P.DS_ITS ---
History of Present Illness History of Present Illness Date Patient Seen: 04/05/24 Time Patient Seen: 11:07 Chief complaint: flu like symtoms Narrative: Per admitting provider, 68 y/o with PMH of smoking, Hx of PE, on no medications, occasionally takes 's albuterol MDI, presented short of breath, wheezy, hypoxemic with PNA. His was admitted earlier with Influenza A pneumonia. He tested negative for it. On admission quite breathless after initial treatment with steroid, bronchodilators and abx. CTA negative for PE. Few days ago had b/l leg venous doppler for legs swelling w/o evidence of DVT. Discharge Providers Provider Date of admission: 04/05/24 03:19 Discharge Date: 04/06/24 Primary care physician: Doctor Sanchez, Discharge provider: Andrei Brandon DO Summary Hospital Course Discharge Diagnosis: (1) Pneumonia: possible viral or bacterial with acute respiratory failure with hypoxia (2) COPD (chronic obstructive pulmonary disease) with exacerbation (3) Tobacco use 4. history of PE Hospital Course: 68 year old male with PMH of tobacco use and COPD who was admitted to the hospital with COPD exacerbation and presumed pneumonia. His was admitted the same day with influenza A. He was weak with dry cough and sore throat and generalized malaise. He was eating and tolerating a diet, and only shortly after admission to the hospital he was no longer requiring supplemental oxygen. He very much wanted to discharge home with his spouse. Given his symptoms and 's positive influenza A test, he was discharged home with tamiflu. There may be a possible bacterial pneumonia as well and he was improving rapidly, so levofloxacin was also sent. He was also given a steroid burst for COPD exacerbation. No lobsterman changes to his home medications were recommended on discharge. Time Spent with Patient Time spent: Greater than 30 minutes Exam Vital Signs (past 8 hours): - 04/05/24 04:24 04/05/24 06:26 04/05/24 08:00 Temperature 97.3 F L 96.1 F L Pulse Rate 77 66 Respiratory Rate 19 17 Blood Pressure 122/63 112/46 L Pulse Oximetry 94 96 Oxygen Delivery Method Room Air Oxygen Flow Rate 0 0 Fraction of Inspired Oxygen 21 SaO2/FiO2 Ratio 447 Oxygen Delivery Method Room Air Oxygen Flow Rate 0 Narrative Exam Narrative: Gen: Ill appearing male, no acute distress Pulm: CTA b/l CV: RRR no m/r/g Ext: No edema Objective Labs 04/05/24 08:50 04/05/24 08:50 Labs: Laboratory Results - last 24 hr 04/04/24 04/04/24 04/04/24 21:13 21:15 21:18 WBC 18.0 H RBC 4.11 L Hgb 13.0 L Hct 37.7 L MCV 91.7 MCH 31.5 MCHC 34.4 RDW 14.6 Plt Count 297 Neut % (Auto) 87.3 H Lymph % (Auto) 6.1 L [place] % (Auto) 6.1 Eos % (Auto) 0.0 L Baso % (Auto) 0.5 Neut # (Auto) 97242 H Lymph # (Auto) 1100 [place] # (Auto) 1100 H Eos # (Auto) 0 Baso # (Auto) 100 PT 14.5 H INR 1.3 D-Dimer 1423 H Sodium 130 L Potassium 3.4 Chloride 98 Carbon Dioxide 26 BUN 11 Creatinine 1.05 Estimated GFR > 60 BUN/Creatinine Ratio 10.5 Glucose 125 H Lactate 0.9 Calcium 9.0 Total Bilirubin 1.6 H AST 29 ALT 19 Alkaline Phosphatase 149 H Troponin I < 0.012 NT-Pro-B Natriuret Pep 335 H Total Protein 7.0 Albumin 3.4 L Globulin 3.6 Albumin/Globulin Ratio 0.9 L SARS-CoV-2 (PCR) Negative Influenza A (RT-PCR) Flu a negative Influenza B (RT-PCR) Flu b negative RSV (PCR) Negative 04/05/24 08:50 WBC 13.1 H RBC 4.35 L Hgb 13.5 Hct 39.8 L MCV 91.6 MCH 30.9 MCHC 33.8 RDW 14.8 Plt Count 288 Neut % (Auto) 93.8 H Lymph % (Auto) 4.5 L [place] % (Auto) 1.5 L Eos % (Auto) 0.0 L Baso % (Auto) 0.2 Neut # (Auto) 58835 H Lymph # (Auto) 600 L [place] # (Auto) 200 Eos # (Auto) 0 Baso # (Auto) 0 PT INR D-Dimer Sodium 135 L Potassium 4.0 Chloride 102 Carbon Dioxide 25 BUN 13 Creatinine 0.82 Estimated GFR > 60 BUN/Creatinine Ratio 15.9 Glucose 152 H Lactate Calcium 8.9 Total Bilirubin AST ALT Alkaline Phosphatase Troponin I NT-Pro-B Natriuret Pep Total Protein Albumin Globulin Albumin/Globulin Ratio SARS-CoV-2 (PCR) Influenza A (RT-PCR) Influenza B (RT-PCR) RSV (PCR) [facility] Medical History Tobacco abuse Surgical History History of bilateral hip replacements Family History Mother Cancer Father Heart attack Social History household members: spouse and children Smoking Status: Current every day smoker alcohol intake: current substance use type: marijuana Discharge Plan Discharge Plan Patient Disposition: Home Provider Discharge Comment: You were admitted to the hospital requiring oxygen, most likely from Flu though given labs you may have a pneumonia. Continue antibiotics, tamiflu, and steroids at home for the next 5 days. Nursing Discharge Comment: If symptoms don't improve or become worse, you may need to return to the ER given your history of COPD Discharge orders & Medications Prescriptions: New prednisone 20 mg tablet 40 mg PO DAILY 5 Days Qty: 10 0RF levofloxacin 750 mg tablet 750 mg PO DAILY 5 Days Qty: 5 0RF oseltamivir [Tamiflu] 75 mg capsule 75 mg PO BID 5 Days Qty: 10 0RF Continued albuterol sulfate 90 mcg/actuation HFA aerosol inhaler 2 puff inhalation Q4-6H PRN (Reason: shortness of breath or wheezing) Qty: 8.5 0RF Rx Instructions: please dispense with spacer apixaban 5 mg (74 tabs) tablets,dose pack See Rx Instructions .ROUTE .COMPLEX Qty: 74 0RF Rx Instructions: orally per package direction budesonide-formoterol [Symbicort] 160-4.5 mcg/actuation HFA aerosol inhaler 2 puff inhalation BID Qty: 10.2 3RF ipratropium-albuterol 0.5 mg-3 mg(2.5 mg base)/3 mL solution for nebulization 3 ml inhalation Q6H PRN (Reason: shortness of breath or wheezing) Qty: 180 2RF (DME) nebulizer and compressor Device See Rx Instructions .Route Qty: 1 0RF Rx Instructions: As directed (DME) nebulizer accessories Kit See Rx Instructions .Route Qty: 1 0RF Rx Instructions: As directed prednisone 10 mg tablet 10 mg PO DAILY Qty: 30 0RF Rx Instructions: day 1-3: 40 mg once a day day 4-6: 30 mg once a day day 7-9: 20 mg once a day day 10-12: 10 mg once a day furosemide [Lasix] 20 mg tablet 20 mg PO DAILY Qty: 30 3RF Follow up/Referrals: Daniel,Doctor, MD [Primary Care Provider] - Diet/Activity/Treatments Diet: Diet as Tolerated and Regular Activity: As tolerated no restrictions Visit Report/Discharge Packet Instructions: Prednisone, Levofloxacin, Oseltamivir Stand Alone Forms: Patient Portal/API, Stroke Signs & Symptoms Discharge Data Primary Care Provider: DanielDoctor Attending Provider: Negrito Gonzalez Admit Date/Time: 04/05/24 03:19 Quality VTE Deep Vein Thrombosis/Pulmonary Embolism Present on Admission: No
--- NOTE | 2024-04-05 13:42 | CM.DANOTE ---
DCP Assessment note pt is a 68yo M admitted with pneumonia/flu. PCP none listed. Payer [employer] COMPUTER GRAPHIC DESIGNER reviewed EMR. Per hospitalist in morning rounds, pt to dc today. on room air. per discussion in morning rounds, pt spouse also currently admitted for pneumonia. spouse also set to dc today. COMPUTER GRAPHIC DESIGNER entered room and introduced self and role. pt responding in one word answers. confirms living in [place] with spouse, DIL/RAJI, and two grandchildren. Has a FWW uses sometimes. no PCP, agreed to let COMPUTER GRAPHIC DESIGNER message TCM group to arrange SOC for him. confirmed him and spouse ([phone]) phone numbers in chart are correct. denies other DCP/CM questions or needs. unsure what transport plan home is per collaboration with RN team/pt spouse/other family after much back and forth, no available ride home at this time. Agreeable to [employer], confirm they can pay, and spouse and pt both agree to wear masks in transport. ([address], [place]) Per [facility], cost estimate $20. 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 COMPUTER GRAPHIC DESIGNER messaged TCM team requesting inquiry to SOC appt for pt with new PCP. P: home today with [employer] [facility] to transport him and spouse home. f/u with new PCP recommended, TCM team will attempt to arrange with pt. CM team will continue to follow as needed LUIS Renee Discharge Planning/Care Management Advanced directive, confirm from FAMILY Start: 04/05/24 04:12 Freq: Q24H Status: Active Protocol: Document 04/05/24 04:12 BR (Rec: 04/05/24 04:12 BR [id number]) Advance Directive, confirm on record Time 04:12 Person contacted Ashley (pt) Copy received No CM Discharge Assessment Start: 04/05/24 13:38 Freq: Status: Active Protocol: Document 04/05/24 13:38 SL (Rec: 04/05/24 13:41 SL [id number]) Discharge Planning Assessment Assigned Discharge Rn Katy Estrada/Assigned Designee Name Citlaly, spouse Contact Information [phone] Advance Directives? No Advance Directives on File No History Provided By Patient,Family Member Prior Living Arrangements House Household Members spouse,children Independent with ADL's Yes Is patient alert and oriented? Yes DME Already Rented / Owned FWW / Walker Comment owns a FWW Comment Active smoker Discharge Plan Home Referrals Initiated None needed Review Status In Process Please Provide Date Initial DC 04/05/24 Assessment Was Performed Next Review Type Continued Stay Review
--- NOTE | 2024-04-05 14:28 | PC.NURSE ---
Patient states his is also in the hospital today and being discharged and states he will be discharged at the same time. Patient has poor appetite but denies pain, n/v. Declined tylenol prn today, refused lovenox, and declines nicotine patch. VSS. Fatigued but wakes up to eat small portion of meals and use the bathroom. Discharge instructions reviewed with patient and he has no further questions at this time. Patient taken out via wheelchair by POWER SYSTEMS ENGINEER, patient is taking taxi home with his family, prescriptions to package pick up at [facility]. Patient instructed to establish care with PCP (assistance given by case management), take medications as prescribed, and return to ER if symptoms return or worsen.
== END 2024-04-05 14:36 | disposition home or self-care (01) ==
LOC: ED 22:59 → AC 04-05 03:20
PROVIDERS: Admitting Provider Internal Medicine; Emergency Provider Emergency Medicine; Referring Provider Emergency Medicine; Visit Provider Internal Medicine
DX: J44.1 Chronic obstructive pulmonary disease with (acute) exacerbation (principal); R06.02 Shortness of breath; Z11.52 Encounter for screening for COVID-19; Z86.711 Personal history of pulmonary embolism; Z72.0 Tobacco use
CPT/HCPCS: 0241U; 36415; 71045; 71275; 80048; 80053; 83605; 83880; 84484; 85025; 85379; 85610; 93005; 96365; 96375; 96376; 99284; 99285; G0378; J0696; J2919; Q9967